=== PATIENT | male | born 1950 | race Caucasian/White ===

== ENCOUNTER 2017-05-30 11:08 | Day surgery (SDC) | payer MEDICARE ==
[2017-05-29 12:00] VITALS: BMI 31.1
[2017-05-30] MEDS ORDERED: Midazolam HCl 2 mg/2 ml Vial ONE ×2 (12:28→12:57)
== END 2017-05-30 13:50 | disposition home or self-care (01) ==
LOC: SDC/OP 11:08
PROVIDERS: ATTEND Specialist
DX: M47.817 Spondylosis without myelopathy or radiculopathy, lumbosacral region (principal); F41.8 Other specified anxiety disorders; M19.90 Unspecified osteoarthritis, unspecified site; Z87.891 Personal history of nicotine dependence; Z80.8 Family history of malignant neoplasm of other organs or systems; Z79.52 Long term (current) use of systemic steroids; Z79.891 Long term (current) use of opiate analgesic; Z79.899 Other long term (current) drug therapy
CPT/HCPCS: J2250

== ENCOUNTER 2017-06-06 14:12 | Inpatient (IN) | payer MEDICARE ==
--- NOTE | 2017-06-06 15:26 | ULT ---
ULTRASOUND WITH DOPPLER DUPLEX VENOUS LOWER EXTREMITY BILATERAL CPT: 39400 ICD-10-PCS: B54D HISTORY: Pain and edema. TECHNIQUE: Color flow Doppler, spectral waveform analysis of pulsed Doppler, and jimenez-scale imaging with anahi elvira and augmentation, were used to evaluate the bilateral common femoral, femoral, popliteal, cottage cheese maker ior tibial, and superficial femoral, veins; and the proximal portions of the profunda femoral and gre ater saphenous, veins. FINDINGS: Appropriate compressibility and flow within the imaged deep vein system of each lower extremity. Incidental note of prominent-sized right inguinal lymph node measuring 3.5 cm in diameter. IMPRESSION: 1. No evidence of deep vein thrombosis. 2. Prominent-sized, incidentally visualized right inguinal lymph node. Recommend clinical correlati on. 3. Soft tissue edema. POS: [facility]
[2017-06-06 15:39] LABS: #Eosinphils 0.2 thou/uL (0.0-0.7); #Lymphocytes 1.3 thou/uL (1.20-3.40); #Monocytes 0.6 thou/uL (0.11-0.59); #Neutrophils 4.6 thou/uL (1.40-6.50); %Basophils 0.4 % (0.0-1.0); %Eosinophils 2.9 % (0.0-10.0); %Lymphocytes 19.3 % (21.0-51.0); %Monocytes 8.5 % (0.0-10.0); %Neutrophils 68.9 % (42.0-75.0); Hemoglobin 13.1 g/dL (14.0-18.0); Mean Corpuscular Hemoglobin 32.8 pg (27.0-31.0); Mean Corpuscular Volume 93.8 fl (80.0-94.0); Mean Platelet Volume 6.8 fL (7.4-10.4); Platelet Count 258 thou/uL (130-400); RBC Distribution Width 12.3 % (11.5-14.5); White Blood Cell (WBC) Count 6.7 thou/uL (4.8-10.8)
[2017-06-06 16:04] LABS: Troponin I 0.013 ng/mL (< 0.028)
[2017-06-06 16:06] LABS: CKMB 8.1 ng/mL (0-6.6)
[2017-06-06] MEDS ORDERED: cefTRIAXone\\ROCEPHIN 2 GM in Sodium Chloride 0.9% 100 ML IVPB SCH (19:00)
[2017-06-06] MEDS ORDERED: Morphine 4 MG/ML VIAL ONE (20:55)
[2017-06-06 21:10] LABS: Bilirubin Negative (Negative); Blood, Urine Negative (Negative); Clarity CLEAR (Clear); Glucose, Urine (Dipstick) Negative (Negative); Leukocyte Negative (Negative); Nitrite Negative (Negative); Protein, Urine (Dipstick) Negative (Neg-Trace); Specific Gravity, Urine 1.019 (1.002-1.036); pH, Urine 6.5 (5.0-9.0)
[2017-06-06 22:14] LABS: Lactic Acid 1.7 mmol/L (0.5-2.2)
[2017-06-07] MEDS: Sodium Chloride 0.45% 1,000 ML IV SCH ×2 (04:03→12:47)
[2017-06-07 04:23] VITALS: BMI 42.5
[2017-06-07] MEDS ORDERED: Bisacodyl 5 MG TAB PO PRN (05:10)
[2017-06-07] MEDS ORDERED: Vancomycin HCl 1 GM in Premix Bag 1 BAG IVPB SCH (05:30)
[2017-06-07] MEDS: Piperacillin/Tazobactam 4.5 GM in Sodium Chloride 0.9% 100 ML IVPB SCH ×3 (05:36→23:49)
--- NOTE | 2017-06-07 05:52 | HP ---
PRIMARY CARE PHYSICIAN: Rusty Tanner D.O. CHIEF COMPLAINT: Bilateral leg swelling and redness. HISTORY OF PRESENT ILLNESS: Mr. Fox is a pleasant 66-year-old gentleman, who was seen at [facility] on 06/07/2017. He reports that approximately 1-1/2 years ago he was hospitalized at [facility] for bilateral leg cellul itis. He was doing well until about a week ago. At that time, he started having swelling of both le gs. He also reports that he had vesicles which ruptured over both shins. He also reports having a w ound over the left gonzalez. Over the last 3 days, he had erythema over both shins. Two days ago, he sa w his primary care physician and was started on amoxicillin and Bactrim. He saw his primary care kerri curiel yesterday for followup. He was sent to the emergency room for further management because of o utpatient antibiotic therapy failure. He denies any fever, chills, nausea, vomiting, diarrhea, or ab dominal pain. REVIEW OF SYSTEMS: The following complete review of systems was negative, unless otherwise mentioned in the HPI or below: Constitutional: Weight loss or gain, ability to conduct usual activities. Skin: Rash, itching. Eyes: Double vision, pain. ENT/Mouth: Nose bleeding, neck stiffness, pain, tenderness. Cardiovascular: Palpitations, dyspnea on exertion, orthopnea. Respiratory: Shortness of breath, wheezing, cough, hemoptysis, fever or night sweats. Gastrointestinal: Poor appetite, abdominal pain, heartburn, nausea, vomiting, constipation, or diarr hea. Genitourinary: Urgency, frequency, dysuria, nocturia. Musculoskeletal: Pain, swelling. Neurologic/Psychiatric: Anxiety, depression. Allergy/Immunologic: Skin rash, bleeding tendency. PAST MEDICAL HISTORY: Significant for left hip pain, hypertension, and cellulitis. PAST SURGICAL HISTORY: None. SOCIAL HISTORY: No history of tobacco use, alcohol use or recreational drug use. The patient ambula jaxson independently. FAMILY HISTORY: No family history of coronary artery disease or diabetes mellitus. CODE STATUS: I discussed his code status. He is FULL CODE. ALLERGIES: No known drug allergies. CURRENT MEDICATIONS: Include sulfamethoxazole 1 tablet 2 times a day, amoxicillin 875 mg 2 times a d ay, amitriptyline 10 mg daily, potassium 75 mg daily, zolpidem 10 mg daily, furosemide 40 mg 2 times a day, hydrochlorothiazide 25 mg daily, and morphine 15 mg 2 times a day. PHYSICAL EXAMINATION: GENERAL: On examination, Mr. Fox is awake and alert, not in acute distress. He is morbidly obese, with BMI of 42.5 kilogram per square meter. VITAL SIGNS: He is afebrile. Blood pressure is 104/68, pulse is 98. His breathing at rate of 19 an d saturating 94% on room air. EYES: No scleral icterus. No conjunctival pallor. ENT: Moist mucosal membranes, no oropharyngeal erythema or exudates. NECK: Supple, nontender, normal range of movement, trachea is midline. RESPIRATORY: Accessory muscles of breathing are not active. Chest wall movements are symmetric bila terally. LUNGS: Clear to auscultation without wheeze, rhonchi or crepitations. CARDIOVASCULAR: S1 and S2 are heard, regular. Peripheral pulses palpable. No carotid bruit, no per icardial rub. ABDOMEN: Distended, nontender, bowel sounds heard, no hepatomegaly, no splenomegaly. NEUROLOGIC: Cranial nerves II-XII are intact, deep tendon reflexes are 2+. MUSCULOSKELETAL: Power is 5/5 in all 4 extremities. Normal range of movement at all major extremity joints. SKIN: He has erythema over both shins, worse on the left, extending all the way from the foot to jus t below the knee on the left, and extending to mid gonzalez on the right. He also has a wound over the l eft gonzalez. He also has what appeared to be ruptured vesicles over the right gonzalez. LYMPHATIC: No cervical lymphadenopathy. PSYCHIATRIC: Normal mood, normal affect, patient is oriented to person, place, and time. X-RAY FINDINGS AND LABORATORY DATA: Mr. Fox's labs and investigations were reviewed. Bilateral lo wer extremity venous Dopplers did not reveal any evidence of deep vein thrombosis. He had prominent sized right inguinal lymph node. Laboratory investigations showed normal white count, normocytic ane marci with hemoglobin 13.1, normal platelet count, elevated D-dimer of 1.05, normal lactic acid, normal troponin I, elevated C-reactive protein of 8.42, elevated TSH of 9.3171, normal BNP and normal urina lysis. ASSESSMENT AND PLAN: Mr. Fox is a pleasant 66-year-old gentleman, who was seen at [facility] on 06/07/2017. His problem list includes: 1. Cellulitis. Mr. Fox has bilateral lower extremity cellulitis, worse on the left. He has faile d outpatient antibiotic therapy. He will be admitted to the hospital for intravenous antibiotics. I will start him on Zosyn and vancomycin. We will also get wound cultures from the open wound over th e left gonzalez. 2. Elevated TSH: Will check free T3 and free T4. 3. Hypertension: Continue home medications, monitor vital signs and titrate antihypertensives as ne eded. Many thanks for allowing me to participate in your patient's care. Please feel free to contact me wi th any questions or concerns. LEVEL OF RISK: Moderate. LEVEL OF COMPLEXITY: Moderate.
[2017-06-07] MEDS: Enoxaparin Sodium 40 MG/0.4 ML SYRINGE SC SCH (09:00)
[2017-06-07] MEDS: Sodium Chloride 0.9% 1,000 ML IV SCH ×2 (13:10→21:41)
[2017-06-07] MEDS ORDERED: MELATONIN 30 MG PO PRN (16:17)
--- NOTE | 2017-06-07 16:29 | PDOC.PN ---
- Subjective Encounter Start Date: 06/07/17 Encounter Start Time: 16:28 Mr. Fox was seen today in follow-up of cellulitis of both legs. He has noted a slight improvement overnight. His legs are still weeping however. - Objective Resuscitation Status: Resuscitation Status FULL:Full Resuscitation MAR Reviewed: Yes Vital Signs & Weight: Vital Signs (12 hours) Temp Pulse Resp BP Pulse Ox 06/07/17 12:36 98 F 90 20 107/69 93 L 06/07/17 11:56 98.1 F 83 14 06/07/17 09:31 98.1 F 83 14 93 L 06/07/17 09:08 98.1 F 83 14 114/73 93 L I&O: 06/06/17 06/07/17 06/08/17 06:59 06:59 06:59 Intake Total 1645 Balance 1645 Result Diagrams: 06/06/17 15:15 Phys Exam - Physical Examination HEENT: PERRLA Respiratory: no wheezing, no rales, no rhonchi, clear to auscultation bilateral Cardiovascular: RRR, no significant murmur Gastrointestinal: soft, non-tender, positive bowel sounds Musculoskeletal: edema present Bilateral pitting edema, and erythema, left leg is weeping clear fluid Dx/Plan (1) Cellulitis of both lower extremities Code(s): L03.115 - CELLULITIS OF RIGHT LOWER LIMB; L03.116 - CELLULITIS OF LEFT LOWER LIMB Status: Acute (2) Hypertension Code(s): I10 - ESSENTIAL (PRIMARY) HYPERTENSION Status: Acute (3) Obesity, morbid, BMI 40.0-49.9 Code(s): E66.01 - MORBID (SEVERE) OBESITY DUE TO EXCESS CALORIES Status: Acute (4) Venous stasis dermatitis of both lower extremities Code(s): I87.2 - VENOUS INSUFFICIENCY (CHRONIC) (PERIPHERAL) Status: Acute - Plan * Cellulitis- erythema, as regressed some- continue Zosyn and Vancomycin * HTN- blood pressure is elevated * Obesity- stable- patient is aware he needs to loose weight * Suspected Chronic venous stasis- he plans to see a " leg specialist" after discharge. * Will need to monitor renal function
[2017-06-07] MEDS: HYDROcodone/Acetaminophen 10/325 mg Tablet PO PRN (21:39)
[2017-06-07] MEDS: Zolpidem Tartrate 5 MG TAB PO SCH (21:40)
[2017-06-07] MEDS: Amitriptyline HCl 25 MG TAB PO SCH (21:40)
[2017-06-08 05:59] LABS: #Eosinphils 0.3 thou/uL (0.0-0.7); #Monocytes 0.5 thou/uL (0.11-0.59); #Neutrophils 3.2 thou/uL (1.40-6.50); %Basophils 0.8 % (0.0-1.0); %Eosinophils 6.3 % (0.0-10.0); %Lymphocytes 20.2 % (21.0-51.0); %Monocytes 9.2 % (0.0-10.0); %Neutrophils 63.5 % (42.0-75.0); Hemoglobin 11.9 g/dL (14.0-18.0); Mean Corpuscular Hemoglobin 32.4 pg (27.0-31.0); Mean Corpuscular Volume 95.3 fl (80.0-94.0); Mean Platelet Volume 6.6 fL (7.4-10.4); Platelet Count 249 thou/uL (130-400); RBC Distribution Width 12.4 % (11.5-14.5); Red Blood Cell (RBC) Count 3.66 mill/uL (4.70-6.10)
[2017-06-08 06:22] LABS: Anion Gap 11 mmol/L (10-20); BUN (Urea Nitrogen) 27 mg/dL (8.4-25.7); Calc. Creatinine Clearance 73 mL/min (70-130); Calcium 8.6 mg/dL (7.8-10.44); Carbon Dioxide 27 mmol/L (23-31); Chloride 103 mmol/L (98-107); Estimated GFR-MDRD 35; Glucose 114 mg/dL (80-115); Potassium 3.2 mmol/L (3.5-5.1); Sodium 138 mmol/L (136-145)
[2017-06-08] MEDS: Piperacillin/Tazobactam 4.5 GM in Sodium Chloride 0.9% 100 ML IVPB SCH ×3 (08:06→22:31)
[2017-06-08] MEDS: Enoxaparin Sodium 40 MG/0.4 ML SYRINGE SC SCH (09:08)
[2017-06-08] MEDS: Amitriptyline HCl 25 MG TAB PO SCH ×2 (09:08→22:32)
[2017-06-08] MEDS: Sodium Chloride 0.9% 1,000 ML IV SCH (09:21)
--- NOTE | 2017-06-08 11:54 | PDOC.PN ---
- Subjective Encounter Start Date: 06/08/17 Encounter Start Time: 11:52 Mr. Fox says he is feeling a little better today, slightly less soreness in the leg. - Objective Resuscitation Status: Resuscitation Status FULL:Full Resuscitation MAR Reviewed: Yes Vital Signs & Weight: Vital Signs (12 hours) Temp Pulse Resp BP Pulse Ox 06/08/17 08:00 97.4 F L 89 16 06/08/17 07:44 97.4 F L 89 16 111/74 95 06/08/17 04:00 98.3 F 90 18 139/80 98 06/08/17 03:04 94 L 06/08/17 00:50 97.7 F 86 17 120/73 94 L I&O: 06/07/17 06/08/17 06/09/17 06:59 06:59 06:59 Intake Total 4944 Output Total 2050 Balance 2894 Result Diagrams: 06/08/17 05:20 06/08/17 05:20 Phys Exam - Physical Examination HEENT: PERRLA Respiratory: no wheezing, no rales, no rhonchi, clear to auscultation bilateral Cardiovascular: RRR, no significant murmur, no rub Gastrointestinal: soft, non-tender, positive bowel sounds Musculoskeletal: edema present 3+ pitting edema, erythema in both legs, both are weeping fluid Dx/Plan (1) Cellulitis of both lower extremities Code(s): L03.115 - CELLULITIS OF RIGHT LOWER LIMB; L03.116 - CELLULITIS OF LEFT LOWER LIMB Status: Acute (2) Hypertension Code(s): I10 - ESSENTIAL (PRIMARY) HYPERTENSION Status: Acute (3) Obesity, morbid, BMI 40.0-49.9 Code(s): E66.01 - MORBID (SEVERE) OBESITY DUE TO EXCESS CALORIES Status: Acute (4) Venous stasis dermatitis of both lower extremities Code(s): I87.2 - VENOUS INSUFFICIENCY (CHRONIC) (PERIPHERAL) Status: Acute - Plan * Bilateral Cellutits- continue Iv Vancomycin and Zosyn * Will discontinue IV fluids * Acute on chronic kidney disease vs. Baseline Chronic kidney disease- will re- check his creatinine in the AM * HTN- Blood pressure is stable * Wound care consult for weeping leg wounds.
[2017-06-08] MEDS ORDERED: Potassium Chloride 20 MEQ TAB PO SCH (12:15)
[2017-06-08] MEDS ORDERED: Melatonin 3 MG TAB PO PRN ×2 (14:35→14:36)
[2017-06-08 19:46] LABS: Vancomycin, Trough 31.7 ug/mL
[2017-06-08] MEDS: HYDROcodone/Acetaminophen 10/325 mg Tablet PO PRN (22:33)
[2017-06-08] MEDS: Zolpidem Tartrate 5 MG TAB PO SCH (23:41)
[2017-06-09] MEDS: HYDROcodone/Acetaminophen 10/325 mg Tablet PO PRN (05:58)
[2017-06-09] MEDS: Piperacillin/Tazobactam 4.5 GM in Sodium Chloride 0.9% 100 ML IVPB SCH ×3 (05:59→21:33)
[2017-06-09 06:03] LABS: Anion Gap 14 mmol/L (10-20); BUN (Urea Nitrogen) 21 mg/dL (8.4-25.7); Calc. Creatinine Clearance 75 mL/min (70-130); Carbon Dioxide 22 mmol/L (23-31); Chloride 108 mmol/L (98-107); Estimated GFR-MDRD 36; Glucose 98 mg/dL (80-115); Potassium 3.7 mmol/L (3.5-5.1); Sodium 140 mmol/L (136-145)
[2017-06-09] MEDS ORDERED: Vancomycin HCl 1.5 GM in Sodium Chloride 0.9% 250 ML 300 ML IVPB SCH (09:00)
[2017-06-09 09:06] LABS: Vancomycin, Random 20.6 ug/mL (See Comment)
[2017-06-09] MEDS: Enoxaparin Sodium 40 MG/0.4 ML SYRINGE SC SCH (09:22)
[2017-06-09] MEDS: Amitriptyline HCl 25 MG TAB PO SCH ×2 (09:22→21:32)
--- NOTE | 2017-06-09 16:09 | PDOC.PN ---
- Subjective Encounter Start Date: 06/09/17 Encounter Start Time: 16:07 Mr. Fox was seen today in follow-up. He says he feels his leg has improved. No new complaints. - Objective Resuscitation Status: Resuscitation Status FULL:Full Resuscitation MAR Reviewed: Yes Vital Signs & Weight: Vital Signs (12 hours) Temp Pulse Resp BP Pulse Ox 06/09/17 08:00 97.8 F 81 14 111/66 98 06/09/17 04:32 97.7 F 78 18 118/68 97 Weight Admit Weight 305 lb Weight 305 lb I&O: 06/08/17 06/09/17 06/10/17 06:59 06:59 06:59 Intake Total 4944 1500 700 Output Total 2049 Balance 2894 1500 700 Result Diagrams: 06/08/17 05:20 06/09/17 05:07 Phys Exam - Physical Examination HEENT: PERRLA Respiratory: no wheezing, no rales, no rhonchi, clear to auscultation bilateral Cardiovascular: RRR, no significant murmur Gastrointestinal: soft, positive bowel sounds Musculoskeletal: edema present 2+ Pittine edema bilaterally mild erythema Dx/Plan (1) Cellulitis of both lower extremities Code(s): L03.115 - CELLULITIS OF RIGHT LOWER LIMB; L03.116 - CELLULITIS OF LEFT LOWER LIMB Status: Acute (2) Hypertension Code(s): I10 - ESSENTIAL (PRIMARY) HYPERTENSION Status: Acute (3) Obesity, morbid, BMI 40.0-49.9 Code(s): E66.01 - MORBID (SEVERE) OBESITY DUE TO EXCESS CALORIES Status: Acute (4) Venous stasis dermatitis of both lower extremities Code(s): I87.2 - VENOUS INSUFFICIENCY (CHRONIC) (PERIPHERAL) Status: Acute - Plan * Cellulitis- slowly improving * Stable for discharge home..
[2017-06-09] MEDS: Zolpidem Tartrate 5 MG TAB PO SCH (21:32)
[2017-06-09 23:45] VITALS: BP 114/74; TEMP 97.8
--- NOTE | 2017-06-10 02:50 | DIS ---
PRIMARY CARE PHYSICIAN: Rusty Tanner D.O. DATE OF ADMISSION: 06/06/2017 DATE OF DISCHARGE: 06/09/2017 DISCHARGE DISPOSITION: Home. PRIMARY DISCHARGE DIAGNOSES: 1. Cellulitis, bilateral lower extremities. 2. Chronic venous stasis. 3. Hypertension. 4. Chronic kidney disease, stage 3. DISCHARGE MEDICATIONS: Include ciprofloxacin 500 mg twice a day for 10 days, Flagyl 500 mg 3 times a day for 10 days, amitriptyline 50 mg twice a day, Celebrex 200 mg twice daily, Lasix 40 mg daily, hy drochlorothiazide 25 mg twice a day, melatonin 20 mg at bedtime, morphine sulfate 30 mg p.r.n., potas sium chloride 20 mEq daily, Ambien 10 mg at bedtime, Kenalog cream 0.5% daily. PROCEDURES DONE DURING ADMISSION: The patient had a lower extremity venous Doppler showing no eviden ce of deep vein thrombosis and this was bilateral. CODE STATUS: FULL CODE. ALLERGIES: No known drug allergies. HOSPITAL COURSE: Mr. Fox is a pleasant 66-year-old gentleman who presented to the emergency room w ith swelling in both legs as well as redness. He had seen his primary care physician prior to admiss ion and he had been prescribed amoxicillin and Bactrim. However, his legs continuously got more swol tony and more red as a result, he came to the emergency room for evaluation. He was admitted for cell ulitis of both legs and started on IV fluids. He had some drainage from the wound, says they were we eping clearish fluid and these wounds grew 3 organisms including Enterobacter cloacae, Strep agalacti a, and a Gram-negative doyle. The Gram-negative doyle was in too few quantities to identify and based on the culture results, he was placed on Cipro and Flagyl orally and he is being discharged home. He w as also seen by Wound Care, who recommended the wraps and cream for his legs. He is planning to see a leg specialist it sounds like a vein specialist, which he had already planned prior to admission an d he was counseled on the proper care for chronic venous stasis including elevation, sodium restricti on, and compression. He will be discharged home and to follow up with Dr. Tanner in 1 week.
[2017-06-10] MEDS: Piperacillin/Tazobactam 4.5 GM in Sodium Chloride 0.9% 100 ML IVPB SCH (06:16)
== END 2017-06-10 08:46 | disposition home or self-care (01) | DRG 603 ==
LOC: ERS 14:12 → ERHOLD 20:49 → SURG A 06-07 01:57
PROVIDERS: ADMIT Family Medicine; ATTEND Family Medicine
DX: L03.116 Cellulitis of left lower limb (principal); E66.01 Morbid (severe) obesity due to excess calories; N18.3 Chronic kidney disease, stage 3 (moderate); Z68.41 Body mass index [BMI] 40.0-44.9, adult; S81.802A Unspecified open wound, left lower leg, initial encounter; L03.115 Cellulitis of right lower limb; I87.2 Venous insufficiency (chronic) (peripheral); I12.9 Hypertensive chronic kidney disease with stage 1 through stage 4 chronic kidney disease, or unspecified chronic kidney disease
CPT/HCPCS: 36415; 80048; 80202; 81003; 82553; 83605; 83880; 84439; 84443; 84481; 84484; 85025; 85379; 86140; 87070; 87077; 87186; 87205; 93970; 96361; 96365; 96366; 96367; 96375; 99214; G0463; J0696; J1650; J2270; J2543; J3370; J7050

== ENCOUNTER 2017-09-30 12:10 | Day surgery (SDC) | payer MEDICARE ==
[2017-09-29 13:08] VITALS: BMI 39.4
--- NOTE | 2017-09-30 15:58 | MRI ---
MRI LUMBAR SPINE WITHOUT CONTRAST: Date: 09/30/17 INDICATION: Low back pain, radiculopathy. COMPARISON: None. TECHNIQUE: Multiplanar, multisequence MR images were obtained of the lumbar spine without IV contrast. No radiog raphic comparisons are available. Five lumbar-type vertebral bodies are seen for the purposes of this exam due to the lack of radiographic comparisons. FINDINGS: The conus is seen to terminate at the expected L1-2 level. The visualized retroperitoneum and paravertebral soft tissues appear within normal limits. There is slight prominence of the epidural fat suspicious for changes of mild epidural lipomatosis. At the L5-S1 level, there is a broad based disc osteophyte complex that is asymmetric to the left wit h associated facet joint degenerative change inducing severe left neural foraminal narrowing. At L4-5, there is a broad based disc osteophyte complex with epidural lipomatosis and facet joint deg enerative change inducing severe central canal narrowing with moderate to severe bilateral neural for aminal narrowing. At L3-4, there is a broad based disc osteophyte complex with facet joint degenerative change and prom inence of the epidural fat pad inducing severe central canal narrowing with moderate to severe bilate ral neural foraminal narrowing, right greater than left. At the L2-3 level, there is a broad based bulge with facet joint degenerative change inducing mild bi lateral neural foraminal narrowing. At L1-2, there is mild broad based bulge without appreciable central canal or neural foraminal narrow ing. At T12-L1, there is no appreciable central canal or neural foraminal narrowing. IMPRESSION: Prominent central canal and neural foraminal narrowing seen involving the lower lumbar spine from L3- 4 through L5-S1 as detailed above. POS: [facility]
== END 2017-09-30 15:20 | disposition home or self-care (01) ==
LOC: SDC/OP 12:10
PROVIDERS: ATTEND Specialist
DX: M51.16 Intervertebral disc disorders with radiculopathy, lumbar region (principal); I10 Essential (primary) hypertension
CPT/HCPCS: 72148

== ENCOUNTER 2017-10-08 22:17 | Inpatient (IN) | payer MEDICARE ==
[2017-10-08 23:07] LABS: #Eosinphils 0.1 thou/uL (0.0-0.7); #Lymphocytes 1.1 thou/uL (1.20-3.40); #Monocytes 0.4 thou/uL (0.11-0.59); #Neutrophils 5.1 thou/uL (1.40-6.50); %Basophils 0.6 % (0.0-1.0); %Eosinophils 0.9 % (0.0-10.0); %Lymphocytes 16.6 % (21.0-51.0); %Neutrophils 75.8 % (42.0-75.0); Hemoglobin 14.1 g/dL (14.0-18.0); Mean Corpuscular HGB CONC 35.1 g/dL (32.0-36.0); Mean Corpuscular Hemoglobin 32.8 pg (27.0-31.0); Mean Corpuscular Volume 93.4 fl (80.0-94.0); Mean Platelet Volume 7.6 fL (7.4-10.4); Platelet Count 211 thou/uL (130-400); RBC Distribution Width 11.7 % (11.5-14.5); White Blood Cell (WBC) Count 6.7 thou/uL (4.8-10.8)
[2017-10-08 23:15] LABS: Bilirubin Negative (Negative); Blood, Urine Negative (Negative); Clarity CLEAR (Clear); Glucose, Urine (Dipstick) 500 mg/dL (Negative); Leukocyte Negative (Negative); Nitrite Negative (Negative); Protein, Urine (Dipstick) Negative (Neg-Trace); Specific Gravity, Urine 1.011 (1.002-1.036); Urobilinogen 0.2 mg/dL (0.2-1.0); pH, Urine 7.5 (5.0-9.0)
[2017-10-08 23:23] LABS: Amphetamine Not Detected (NotDetected); Barbiturates Screen Not Detected (NotDetected); Benzodiazepine Screen Not Detected (NotDetected); Cocaine Metabolite Screen Not Detected (NotDetected); Medtox Control Line Valid? VALID (VALID); Medtox Reader # READER 1; Methadone Not Detected (NotDetected); Methamphetamine Not Detected (NotDetected); Opiate Screen Detected (NotDetected); Oxycodone Screen Not Detected (NotDetected); Phencyclidine (PCP) Not Detected (NotDetected); THC/Cannabinoid Screen Not Detected (NotDetected); Tricyclic Screen Not Detected (NotDetected)
[2017-10-08 23:26] LABS: ALT (SGPT) 38 U/L (8-55); AST (SGOT) 23 U/L (5-34); Albumin 4.1 g/dL (3.4-4.8); Alkaline Phosphatase 125 U/L (40-150); Anion Gap 17 mmol/L (10-20); BUN (Urea Nitrogen) 31 mg/dL (8.4-25.7); Bilirubin, Total 0.6 mg/dL (0.2-1.2); CK (CPK) 223 U/L (30-200); Calc. Creatinine Clearance 0 mL/min (70-130); Calcium 9.1 mg/dL (7.8-10.44); Carbon Dioxide 30 mmol/L (23-31); Chloride 90 mmol/L (98-107); Estimated GFR-MDRD 30; Globulin 3.5 g/dL (2.4-3.5); Magnesium 2.6 mg/dL (1.6-2.6); Protein, Total 7.6 g/dL (5.8-8.1); Sodium 134 mmol/L (136-145)
[2017-10-08 23:30] LABS: CKMB 5.2 ng/mL (0-6.6); Troponin I Less than 0.010 ng/mL (< 0.028)
--- NOTE | 2017-10-08 23:35 | RAD ---
PORTABLE SUPINE CHEST: 10/08/17 HISTORY: Elevated glucose. Altered mental status. Heart size and mediastinum are within normal limits. The lungs appear clear of infiltrates. IMPRESSION: No active intrathoracic disease. POS: [facility]
[2017-10-08 23:46] LABS: Glucose 684 mg/dL (80-115); Potassium 2.8 mmol/L (3.5-5.1)
--- NOTE | 2017-10-08 23:52 | CT ---
CT OF BRAIN PERFORMED WITHOUT CONTRAST ENHANCEMENT: 10/08/17 HISTORY: Fall, altered mental status. Patient found on floor. Ventricular and cisternal systems show some mild generalized atrophy. There is no signs of intracereb ral hemorrhage or extra-axial fluid collections. Mastoid air cells and visualized sinuses are clear. IMPRESSION: No acute intracranial abnormalities. POS: [facility]
--- NOTE | 2017-10-08 23:55 | CT ---
CT OF CERVICAL SPINE PERFORMED WITHOUT CONTRAST ENHANCEMENT: 10/08/17 HISTORY: Fall with neck pain. Vertebral bodies are normal in height. There are marked degenerative changes of the spine with disc n arrowing from C3-4 to C7-T1. Prominent anterior osteophytic change and changes of DISH are noted. The re are also degenerative facet changes, the facets do appear to be in normal alignment. The canal chris ws moderate stenosis and some right sided foraminal narrowing at C4-5. Moderate canal stenosis and bi lateral foraminal narrowing worse on the left at C5-6 and asymmetric right paracentral osteophytic ch anges at C6-7 also with moderate stenosis and right foraminal narrowing. There is no CT evidence for fracture. IMPRESSION: No CT evidence of fracture. Marked arthritic changes of the spine. POS: [facility]
--- NOTE | 2017-10-08 23:59 | CT ---
CT OF LUMBAR SPINE PERFORMED WITHOUT CONTRAST ENHANCEMENT: 10/08/17 HISTORY: Fall with back pain. Vertebral bodies maintain normal height. Vacuum disc phenomenon is seen at L5-S1 without significant disc narrowing. There are marked degenerative facet changes of the lower cervical spine. No compressi on fractures are seen. T12-L1: No canal or foraminal stenosis. L1-2: Borderline canal narrowing with facet hypertrophic change. L2-3: Canal shows mild to moderate degree of stenosis with disc bulging, facet and ligamentous hypert rophic change. L3-4: Moderately severe canal stenosis also present at this level, again with degenerative facet and ligamentous hypertrophic change. L4-5: Severe canal stenosis at this level with disc bulge, facet and ligamentous hypertrophic change. L5-S1: No significant canal stenosis. Suggestion of some left sided foraminal narrowing related to fa cet changes. IMPRESSION: Multilevel canal stenosis. No CT evidence for fracture. POS: [facility]
[2017-10-09] MEDS ORDERED: Insulin Regular 300 UNITS/3 ML VIAL ONE (00:05)
[2017-10-09] MEDS ORDERED: Insulin Regular 100 units/100 ml in NS IVPB SCH (00:15)
[2017-10-09] MEDS ORDERED: Potassium Chloride 20 MEQ in Premix Bag 1 BAG IVPB SCH (01:00)
[2017-10-09] MEDS ORDERED: NS 0.9% w/ 20 MEQ KCL 1,000 ML IV SCH (01:30)
[2017-10-09 01:49] LABS: Acetaminophen Less than 6.0 mcg/mL (10.0-30.0); Alcohol Less than 10 mg/dL (Less than 10); Salicylate Less than 8.0 mg/dL (15.0-30.0)
[2017-10-09] MEDS ORDERED: Ondansetron ODT 4 MG TAB SL PRN (02:38)
[2017-10-09] MEDS ORDERED: Ondansetron HCl/PF 4 MG/2 ML Vial IVP PRN ×2 (02:38→04:41)
[2017-10-09] MEDS ORDERED: Acetaminophen 325 MG TAB PO PRN (02:38)
[2017-10-09 02:42] LABS: Troponin I 0.015 ng/mL (< 0.028)
[2017-10-09 02:58] VITALS: BMI 35.2
[2017-10-09] MEDS ORDERED: Insulin Regular 300 UNITS/3 ML VIAL SC PRN (03:05)
[2017-10-09] MEDS ORDERED: Dextrose 5% in Water 1,000 ML IV PRN (03:05)
[2017-10-09] MEDS ORDERED: Dextrose 50% Abboject 50 ML SYRINGE SLOW IVP PRN (03:05)
[2017-10-09 04:01] LABS: Troponin I 0.014 ng/mL (< 0.028)
[2017-10-09] MEDS ORDERED: Sodium Chloride 0.9% 1,000 ML IV SCH (04:15)
[2017-10-09] MEDS ORDERED: NS 0.9% w/ 20 MEQ KCL 1,000 ML IV PRN ×2 (04:40)
[2017-10-09] MEDS ORDERED: D5 1/2 NS w/20 mEq KCL 1,000 ML IV PRN (04:40)
[2017-10-09] MEDS ORDERED: CCU Electrolyte Replacement 1 EACH IVPB ONE (04:40)
[2017-10-09] MEDS ORDERED: Sodium Chloride 0.9% 1,000 ML IV PRN ×4 (04:40)
[2017-10-09] MEDS ORDERED: Dextrose 5 %-0.45 % NaCl 1,000 ML IV PRN (04:40)
[2017-10-09] MEDS ORDERED: Bisacodyl 10 MG SUPP PR PRN (04:41)
[2017-10-09] MEDS ORDERED: Senokot 8.6 MG TAB PO PRN (04:41)
[2017-10-09] MEDS ORDERED: Ondansetron ODT 4 MG TAB PO PRN (04:41)
[2017-10-09] MEDS ORDERED: Acetaminophen 650 MG Suppository PR PRN (04:41)
[2017-10-09] MEDS ORDERED: hydrALAZINE 20 MG/ML VIAL SLOW IVP PRN (04:43)
[2017-10-09] MEDS ORDERED: Aspirin 300 MG Suppository PR SCH (04:45)
[2017-10-09] MEDS ORDERED: Potassium Phosphate 12 MMOL in Sodium Chloride 0.9% 250 ML 250 ML IV PRN ×2 (05:04→16:43)
[2017-10-09] MEDS ORDERED: Magnesium 2 GM/NS 0.9% 100 ML 2 GM in Premix Bag 1 BAG IVPB PRN ×2 (05:04→16:43)
[2017-10-09] MEDS ORDERED: Potassium Chloride 40 MEQ in Sodium Chloride 0.9% 250 ML 250 ML IVPB PRN ×3 (05:04→16:43)
[2017-10-09] MEDS ORDERED: Magnesium Oxide 400 MG TAB PO PRN ×4 (05:04→16:43)
[2017-10-09] MEDS ORDERED: Potassium Phosphate 9 MMOL in Sodium Chloride 0.9% 100 ML IVPB PRN ×2 (05:04→16:43)
[2017-10-09] MEDS ORDERED: Potassium Phosphate 15 MMOL in Sodium Chloride 0.9% 250 ML 250 ML IV PRN ×2 (05:04→16:43)
[2017-10-09] MEDS ORDERED: Potassium Chloride 40 MEQ in Premix Bag 1 BAG IVPB PRN ×2 (05:04→16:43)
[2017-10-09] MEDS ORDERED: Potassium Chloride 20 MEQ TAB PO PRN ×2 (05:04→16:43)
[2017-10-09] MEDS ORDERED: CCU ELECTROLYTE REPLACEMENT PROTOCOL FS PRN ×2 (05:04→16:43)
--- NOTE | 2017-10-09 05:29 | HP ---
DATE OF ADMISSION: 10/09/2017 PRIMARY CARE PHYSICIAN: Dr. Rusty Tanner. CHIEF COMPLAINT: Altered mentation. HISTORY OF PRESENT ILLNESS: Patient is a 66-year-old male who was diagnosed with diabetes mellitus t ype 2 two days ago, who was brought in with altered mentation by EMS. History obtained from the ER c haley as well as records from Dr. Rusty Tanner's office. No family at the bedside. Three days ago , the patient had a routine physical by Dr. Tanner. His labs were consistent with new onset diabete s mellitus type 2 with a hemoglobin A1c of 48.0 with blood glucose of 384. He was started on glimepi ride. Two days ago, patient was seen at the pain clinic and underwent lumbar injection with a total of 40 mg Depo-Medrol. The patient was found to have altered mentation. He fell asleep while on the phone earlier. Family was unable to get him on the phone. He was then found on the floor naked, covered in urine. He was nonresponsive to their questions. EMS was called. In the emergency room, initial vital signs showed temperature 96.6, respirations 13, pulse rate of 66 with blood pressure 143/82 with O2 saturation 100% on room air. PAST MEDICAL HISTORY: 1. Diabetes mellitus type 2 diagnosed 2 days ago on glimepiride. 2. Degenerative joint disease. 3. Anxiety, depression. 4. Degenerative joint disease followed at the Pain [facility]. PAST SURGICAL HISTORY: Back injections. ALLERGIES: No known drug allergies. CURRENT HOME MEDICATIONS: Gabapentin 300 mg three times daily, Lasix 40 mg every 8 hourly with potas sium, melatonin 10 mg at bedtime as needed, Pepcid 20 mg twice a day, hydrochlorothiazide 25 mg daily , Ambien as needed, amitriptyline 50 mg at bedtime, Celebrex 200 mg twice a day, morphine sulfate 30 mg twice a day. The above list was obtained from Dr. Tanner's office record. SOCIAL HISTORY: Patient currently lives at home. He is a former smoker. He drinks alcohol socially . No drug use reported. He is . He makes his own decisions with the help of his family. FAMILY HISTORY: Father with cancer. REVIEW OF SYSTEMS: Cannot be obtained from the patient due to current cognitive status. PHYSICAL EXAMINATION: VITAL SIGNS: As discussed above. GENERAL: A 66-year-old male with altered mentation. He is responsive only to painful stimuli. HEENT: Head, atraumatic and normocephalic. Sclerae are anicteric. Pupils were reacting to light bi laterally. NECK: Supple, no neck stiffness, no JVD. LUNGS: Showed decreased air entry at bilateral bases. No wheezing, rales or rhonchi. HEART: S1, S2 present. Regular rate and rhythm. No rubs, gallops or murmurs appreciated. ABDOMEN: Soft. Bowel sounds present. No rebound or guarding. There is a hernia over the right upp er abdomen. EXTREMITIES: A 2+ edema in bilateral lower extremities. SKIN: Warm and dry. Multiple superficial abrasions noted. NEUROLOGIC: His NIH score was 9. Detail neurologic and psychiatric examination could not be done du e to current cognitive status. LYMPH NODES: No palpable lymph nodes in the neck. PERIPHERAL VASCULAR: Radial pulses palpable bilaterally. MUSCULOSKELETAL: No joint swelling or tenderness. LABORATORY FINDINGS: Ketone 0.09. Urinalysis was negative. Lactic acid was 2.7. CBC showed WBC 6. 7 with hemoglobin 14.1, hematocrit 40.1, platelet count of 211. Glucose of 684 with potassium 2.8, B UN 31, creatinine 2.17. CRP was 1.58. Urine drug screen was positive for opiates. Lumbar spine CT showed multilevel canal stenosis. Chest x-ray by my review was negative for infiltrate. EKG by my review showed sinus rhythm with firs t-degree AV block. IMPRESSION: 1. Toxic metabolic encephalopathy, multifactorial. 2. Hyperosmolar hyperglycemic state. The patient has questionable facial droop. His NIH score is 9 . Probably precipitated by suspected acute cerebrovascular accident. The patient will be started on insulin drip with hyperosmolar hyperglycemic state protocol. We will repeat labs every 4 hours. We will also start him on aspirin for suspected acute cerebrovascular accident. We will consult Neurol ogy. We will get an MRI of the brain once his mentation improves. 3. Hypokalemia. We will replace potassium. 4. Chronic kidney disease stage 3. We will avoid nephrotoxic agents. 5. Chronic pain syndrome on chronic narcotics. We will get ABGs to rule out respiratory depression/ CO2 narcosis. 6. Hyponatremia secondary to hyperglycemia. 7. Lactic acidosis. 8. Anxiety and depression. 9. Chronic bilateral lower extremity swelling due to venous stasis. 10. Dehydration. Plan of care will be discussed with the family when they arrive.
[2017-10-09] MEDS: cefTRIAXone\\ROCEPHIN 1 GM in Syringe 10 ML IVPB SCH (05:41)
[2017-10-09 06:23] LABS: Anion Gap 14 mmol/L (10-20); BUN (Urea Nitrogen) 28 mg/dL (8.4-25.7); Calc. Creatinine Clearance 67 mL/min (70-130); Carbon Dioxide 28 mmol/L (23-31); Chloride 98 mmol/L (98-107); Estimated GFR-MDRD 40; Glucose 424 mg/dL (80-115); Magnesium 2.1 mg/dL (1.6-2.6); Phosphorus 3.1 mg/dL (2.3-4.7); Sodium 137 mmol/L (136-145)
[2017-10-09 06:27] LABS: Potassium 2.8 mmol/L (3.5-5.1)
[2017-10-09] MEDS ORDERED: DC Electrolyte Protocol FS ONE (07:00)
--- NOTE | 2017-10-09 07:27 | RAD ---
RIGHT SHOULDER 3 VIEWS: Date: 10/08/17 HISTORY: Pain and injury. COMPARISON: None. FINDINGS: Glenohumeral joint space appears to be preserved. Sclerosis of the greater tuberosity may be due to d egenerative change. Degenerative change of the acromioclavicular joint space is noted. No fracture or dislocation. IMPRESSION: No fracture or dislocation. Chronic changes as above. POS: [facility]
--- NOTE | 2017-10-09 08:58 | PDOC.PN ---
- Subjective Encounter Start Date: 10/09/17 Encounter Start Time: 08:56 Subjective: awake, confused - Objective Resuscitation Status: Resuscitation Status FULL:Full Resuscitation MAR Reviewed: Yes Vital Signs & Weight: Vital Signs (12 hours) Temp Pulse Resp Pulse Ox 10/09/17 04:00 98.0 F 10/09/17 03:05 97.6 F 81 28 H 99 10/09/17 02:30 97.6 F Most Recent Monitor Data Heart Rate from ECG 76 NIBP 121/69 NIBP BP-Mean 86 Respiration from ECG 15 SpO2 100 I&O: 10/08/17 10/09/17 10/10/17 06:59 06:59 06:59 Intake Total 409 Output Total 2330 Balance -1921 Result Diagrams: 10/08/17 22:30 10/09/17 05:23 Additional Labs: Accuchecks 10/09/17 10/09/17 10/09/17 07:33 06:41 05:30 POC Glucose 315 H 349 H 432 H 10/09/17 10/09/17 10/09/17 04:10 02:52 02:15 POC Glucose 428 H 461 H 506 H 10/09/17 01:18 POC Glucose 471 H Phys Exam - Physical Examination Neck: no JVD Respiratory: clear to auscultation bilateral Cardiovascular: RRR, no significant murmur Gastrointestinal: soft, positive bowel sounds Musculoskeletal: edema present marked increased girth of R calf , bilat LE erythema Dx/Plan (1) Encephalopathy Code(s): G93.40 - ENCEPHALOPATHY, UNSPECIFIED Status: Acute (2) Hyperosmolar (nonketotic) coma Code(s): E11.01 - TYPE 2 DIABETES MELLITUS WITH HYPEROSMOLARITY WITH COMA Status: Acute (3) DM (diabetes mellitus), type 2, uncontrolled Code(s): E11.65 - TYPE 2 DIABETES MELLITUS WITH HYPERGLYCEMIA Status: Acute Qualifiers: Diabetes mellitus manager terminal insulin use: without manager terminal use Diabetes mellitus complication status: with other specified complication Qualified Code (s): E11.69 - Type 2 diabetes mellitus with other specified complication; E11.65 - Type 2 diabetes mellitus with hyperglycemia; E11.65 - Type 2 diabetes mellitus with hyperglycemia; E11.65 - Type 2 diabetes mellitus with hyperglycemia; E11.65 - Type 2 diabetes mellitus with hyperglycemia (4) Hypertension Code(s): I10 - ESSENTIAL (PRIMARY) HYPERTENSION Status: Chronic Qualifiers: Hypertension type: essential hypertension Qualified Code(s): I10 - Essential (primary) hypertension - Plan frequent accu with iv insulin infusion -: stat venous doppler * .
[2017-10-09] MEDS ORDERED: Famotidine 40 MG/4 ML VIAL SLOW IVP SCH (09:00)
[2017-10-09] MEDS: Heparin 5,000 UNITS/ML VIAL SC SCH ×2 (09:37→20:29)
[2017-10-09] MEDS ORDERED: HumaLOG 300 UNITS/3 ML VIAL SC PRN (10:16)
[2017-10-09] MEDS ORDERED: Insulin Glargine 10 UNITS in Pre-Filled Syringe 1 EACH SC SCH (10:30)
[2017-10-09] MEDS ORDERED: Potassium Chloride 20 MEQ TAB PO SCH (10:30)
--- NOTE | 2017-10-09 10:36 | CON ---
DATE OF CONSULTATION: 10/09/2017 SERVICE: Pulmonary Medicine. REASON FOR CONSULTATION: ICU patient. HISTORY OF PRESENT ILLNESS: The patient is a 66-year-old white male with past medical history significant for type 2 diabetes mellitus. He was given a recent round of steroids. His blood sugars were uncontrolled. Ultimately, he developed encephalopathy and EMS Services brought him to the emergency department. When arrived here, he was fairly obtunded. Overnight, he got put on an insulin drip. He was given significant amount of IV fluids. After a short period of time, he is making a little bit more sense, although he is still difficult to understand and has altered sensorium. He is clearly moving in the right direction and is moving all 4 extremities without difficulty. He really cannot relate any circumstances of his presentation. PAST MEDICAL HISTORY: 1. Type 2 diabetes mellitus. 2. Osteoarthritis. 3. Anxiety disorder. 4. Major depressive disorder. PAST SURGICAL HISTORY: Back injections. ALLERGIES: No known drug allergies. MEDICATIONS: List of his inpatient medications were reviewed. Multiple updates were made. SOCIAL HISTORY: He has [id number] history of smoking, but quit remotely. He currently lives at home. He drinks alcohol rarely. There is no reported drug use. REVIEW OF SYSTEMS: This cannot be obtained because of the patient's altered sensorium . PHYSICAL EXAMINATION: VITAL SIGNS: Afebrile, pulse 76, blood pressure 121/69, respirations 15, saturation 100% on 1 liter nasal cannula. GENERAL: The patient is awake and alert. He is in no apparent distress. LUNGS: Decent air entry. Some rhonchorous breath sounds are present, but they clear with cough. Dependent crackles are evident. No wheezing or prolonged expiratory phase. HEART: Normal rate and regular. ABDOMEN: Soft, nontender, and nondistended. Bowel sounds are positive. MUSCULOSKELETAL: No cyanosis or clubbing. There is trace 1+ pitting in the bilateral lower extremities with bilateral erythema of the gonzalez. The right leg is slightly larger than the left leg. LABORATORY DATA: WBC 6.7, hemoglobin 14.1, platelets 211,000. Potassium 2.8. Creatinine 1.72 and comfortably down trending. BUN 28. Magnesium and phosphorus fall within the normal limits. Lactate is 3.0. Bicarbonate 28, anion gap has improved to 14. Troponin negative x2. Blood sugars were in the 500s, but however dropped back down into normal range. CRP 1.58, in the intermediate range. BNP 168. Liver function studies are completely unremarkable. CK is minimally elevated. Urinalysis is positive for glycosuria , but otherwise unremarkable. Urine drug screen is positive for opiates. Beta hydroxybutyric acid is negative. Alcohol, acetaminophen, and salicylates are negative. IMAGIN. CT of the brain demonstrates no acute intracranial abnormality. 2. CT of the C-spine demonstrates no acute osseous abnormality of the neck. 3. CT of the lumbar spine demonstrates multilevel canal stenosis with no evidence of fracture or subluxation. 4. Shoulder x-ray demonstrates no acute osseous deformity or dislocation. 5. Chest x-ray demonstrates no acute cardiopulmonary abnormality. The left costophrenic angle; however is excluded from film. The left hemidiaphragm is slightly elevated. The lung volumes are small accentuating interstitial markings. ASSESSMENT: 1. Acute hypoxic respiratory failure. 2. Metabolic encephalopathy. 3. Type 2 diabetes mellitus with hyperglycemia. 4. Acute kidney injury. 5. Opiate use. PLAN: We will convert the patient off of his insulin over to subcu medication. I will back off on his IV fluid rate. He will remain in the ICU until he can comfortably get out of bed into a chair a couple times on a daily basis. If repeat laboratories this afternoon are unremarkable and/or continue to improve, we can consider transitioning him out of the ICU. Pulmonary or Critical Care will continue to follow in this location, however. 70 minutes have been devoted to this patient in various activities. I personally reviewed all imaging studies and laboratory data noted within this document. For fifty percent of this time, I was interacting with the patient at the bedside or coordinating care with the care team. For the remainder of the time I was immediately available to the patient in the hospital unit. SONIDO
[2017-10-09 10:55] LABS: Lactic Acid 2.4 mmol/L (0.5-2.2)
[2017-10-09 10:55] LABS: Actual Bicarbonate (HCO3a) 30.3 mEq/L (22-26); Base Excess (BEa) 5.5 mEq/L (0 (+/-) 2.5); CO2 Tension 45.3 mmHg (35.0-45.0); Hematocrit-ABG 37.2 % (42.0-52.0); Hemoglobin (Hb) 12.9 g/dL (14.0-18.0); O2 Tension (PaO2) 91.4 mmHg (80.0-100.0); pH, Arterial 7.44 (7.35-7.45)
[2017-10-09 10:56] LABS: ALV-art Gradient 51.615 (0-20); Calcium, Ionized 1.1 mmol/L (1.12-1.30); Puncture Site L.R.
[2017-10-09 10:57] LABS: Anion Gap 14 mmol/L (10-20); BUN (Urea Nitrogen) 25 mg/dL (8.4-25.7); Calc. Creatinine Clearance 79 mL/min (70-130); Calcium 8.3 mg/dL (7.8-10.44); Carbon Dioxide 28 mmol/L (23-31); Chloride 102 mmol/L (98-107); Estimated GFR-MDRD 48; Glucose 191 mg/dL (80-115); Sodium 141 mmol/L (136-145)
[2017-10-09] MEDS: Sodium Chloride 0.45% 1,000 ML IV SCH (11:12)
--- NOTE | 2017-10-09 11:14 | ULT ---
DOPPLER VENOUS ULTRASOUND OF BOTH LOWER EXTREMITIE: Date: 10/09/17 INDICATION: Bilateral lower extremity edema, concern for deep venous thrombosis. TECHNIQUE: Darden scale, color Doppler, and vascular duplex with spectral analysis was performed of the deep venou s structures of both lower extremities. The common femoral vein, superficial femoral vein, proximal g reater saphenous vein, proximal greater profunda vein, popliteal, and posterior tibial veins were ass essed. FINDINGS: Normal compression, flow, and augmentation was seen within the deep venous structures of both lower e xtremities. IMPRESSION: No evidence of deep venous thrombosis within both lower extremities. POS: MILO
[2017-10-09 11:15] LABS: Potassium 2.8 mmol/L (3.5-5.1)
[2017-10-09] MEDS: HumaLOG 300 UNITS/3 ML VIAL SC SCH ×2 (11:54→17:31)
[2017-10-09] MEDS ORDERED: Vancomycin HCl 1 GM in Premix Bag 1 BAG IVPB SCH (13:00)
[2017-10-09] MEDS ORDERED: Haloperidol Lactate 5 MG/ML VIAL SLOW IVP PRN (13:37)
[2017-10-09] MEDS ORDERED: Multivitamins, Adult 10 ML, Thiamine HCl 100 MG, Folic Acid 1 MG in Dextrose 5 %-0.45 %... IV SCH (13:45)
[2017-10-09] MEDS ORDERED: Sterile Water 10 ML VIAL FS SCH (13:45)
[2017-10-09] MEDS ORDERED: Ziprasidone 20 MG VIAL IM SCH (13:45)
[2017-10-09 14:57] LABS: Base Excess-Venous 4.7 mmol/L (0 (+/- 2.5)); Bicarbonate (HCO3v) 31.2 mmol/L (1.0-85.0); CO2 Tension (PvCO2) 52.9 mmHg (41.0-51.0); Calcium, Ionized 0.97 mmol/L (1.12-1.32); Hemoglobin - Calc 14.3 g/dL (12.0-18.0); O2 Tension (PvO2) 51.7 mmHg (35.0-45.0); Potassium 2.5 mmol/L (3.4-4.7); T. Carbon Dioxide 32.9 mmol/L (1.0-85.0); pH (Venous) 7.379 (7.35-7.45); vO2 Saturation-calc 84.7 % (94-98)
[2017-10-09] MEDS ORDERED: Lorazepam 2 MG/ML VIAL SLOW IVP SCH ×2 (15:00→15:15)
[2017-10-09] MEDS: Lorazepam 2 MG/ML VIAL SLOW IVP PRN ×2 (15:19→17:30)
[2017-10-09 16:19] LABS: Anion Gap 11 mmol/L (10-20); BUN (Urea Nitrogen) 22 mg/dL (8.4-25.7); Calc. Creatinine Clearance 83 mL/min (70-130); Calcium 7.7 mg/dL (7.8-10.44); Carbon Dioxide 28 mmol/L (23-31); Chloride 104 mmol/L (98-107); Estimated GFR-MDRD 51; Glucose 177 mg/dL (80-115); Sodium 140 mmol/L (136-145)
[2017-10-09 16:22] LABS: Potassium 2.9 mmol/L (3.5-5.1)
--- NOTE | 2017-10-09 16:27 | PDOC.EVN ---
Event Note - Event Note Event Note: [facility] became acuely combative. required geodon im + iv ativan. started banana bag, suspect ETOH + narcotic withdrawal
--- NOTE | 2017-10-09 16:53 | PDOC.EVN ---
Event Note - Event Note Event Note: K+ 2.9- institute electrolyte replacement protocol
[2017-10-09] MEDS ORDERED: Potassium Chloride 40 MEQ in Sodium Chloride 0.9% 250 ML 150 ML IVPB PRN (17:27)
[2017-10-09] MEDS: Insulin Glargine 10 UNITS in Pre-Filled Syringe 1 EACH SC SCH (20:28)
[2017-10-09] MEDS: Atorvastatin Calcium 20 MG TAB PO SCH (20:29)
[2017-10-09] MEDS: Lorazepam 2 MG/ML VIAL SLOW IVP SCH (22:16)
[2017-10-09 22:55] LABS: Anion Gap 11 mmol/L (10-20); BUN (Urea Nitrogen) 18 mg/dL (8.4-25.7); Calc. Creatinine Clearance 84 mL/min (70-130); Calcium 8.5 mg/dL (7.8-10.44); Carbon Dioxide 27 mmol/L (23-31); Chloride 104 mmol/L (98-107); Estimated GFR-MDRD 51; Glucose 209 mg/dL (80-115); Potassium 3.4 mmol/L (3.5-5.1); Sodium 139 mmol/L (136-145)
[2017-10-10 05:55] LABS: #Basophils 0.1 thou/uL (0.0-0.2); #Eosinphils 0.3 thou/uL (0.0-0.7); #Lymphocytes 1.6 thou/uL (1.20-3.40); #Monocytes 0.6 thou/uL (0.11-0.59); #Neutrophils 6.3 thou/uL (1.40-6.50); %Basophils 0.7 % (0.0-1.0); %Eosinophils 3.4 % (0.0-10.0); %Lymphocytes 18.6 % (21.0-51.0); %Monocytes 6.3 % (0.0-10.0); %Neutrophils 71.1 % (42.0-75.0); Mean Corpuscular HGB CONC 35.1 g/dL (32.0-36.0); Mean Corpuscular Hemoglobin 32.7 pg (27.0-31.0); Mean Corpuscular Volume 93.1 fl (80.0-94.0); Mean Platelet Volume 7.3 fL (7.4-10.4); Platelet Count 218 thou/uL (130-400); Red Blood Cell (RBC) Count 3.98 mill/uL (4.70-6.10); White Blood Cell (WBC) Count 8.8 thou/uL (4.8-10.8)
[2017-10-10] MEDS: Lorazepam 2 MG/ML VIAL SLOW IVP SCH ×3 (06:12→20:53)
[2017-10-10] MEDS: cefTRIAXone\\ROCEPHIN 1 GM in Syringe 10 ML IVPB SCH (06:17)
[2017-10-10 06:39] LABS: Anion Gap 10 mmol/L (10-20); BUN (Urea Nitrogen) 16 mg/dL (8.4-25.7); Calc. Creatinine Clearance 100 mL/min (70-130); Calcium 8.3 mg/dL (7.8-10.44); Carbon Dioxide 26 mmol/L (23-31); Cardiac Risk 3.8 (Less than 4.5); Chloride 108 mmol/L (98-107); Cholesterol 194 mg/dl (< 200 Desired); Estimated GFR-MDRD 53; Glucose 187 mg/dL (80-115); HDL Cholesterol 51 mg/dL (>60 Neg Risk); LDL Cholesterol, Calculated 113 mg/dL; Phosphorus 1.8 mg/dL (2.3-4.7); Potassium 3.2 mmol/L (3.5-5.1); Sodium 141 mmol/L (136-145); Triglycerides 151 mg/dL (Less than 150)
--- NOTE | 2017-10-10 09:20 | RAD ---
CHEST 1 VIEW: Date: 10/10/17 COMPARISON: 10/08/17. HISTORY: Shortness of breath. Possible pneumonia. FINDINGS: Portable supine chest radiograph demonstrates an enlarged cardiac silhouette. There is leftward rotat ion of the cardiac silhouette. Pulmonary vessels and hilum are normal. Costophrenic angles are clear. No masses or consolidation. No pneumothorax or osseous abnormalities. IMPRESSION: No acute cardiopulmonary process. POS: OFF
[2017-10-10] MEDS: Lorazepam 2 MG/ML VIAL SLOW IVP PRN (09:59)
[2017-10-10] MEDS: Sodium Chloride 0.45% 1,000 ML IV SCH (10:03)
[2017-10-10] MEDS: HumaLOG 300 UNITS/3 ML VIAL SC SCH ×3 (10:04→17:47)
[2017-10-10] MEDS: Heparin 5,000 UNITS/ML VIAL SC SCH ×2 (10:04→20:54)
[2017-10-10] MEDS: Insulin Glargine 10 UNITS in Pre-Filled Syringe 1 EACH SC SCH (10:05)
--- NOTE | 2017-10-10 11:20 | PDOC.PN ---
- Subjective Encounter Start Date: 10/10/17 Encounter Start Time: 11:18 Subjective: alert, oriented x 3, calm - Objective Resuscitation Status: Resuscitation Status FULL:Full Resuscitation MAR Reviewed: Yes Vital Signs & Weight: Vital Signs (12 hours) Temp Pulse Pulse Pulse Resp BP BP 10/10/17 09:42 75 72 142/68 H 160/70 H 10/10/17 08:00 97.9 F 64 18 10/10/17 07:00 97.9 F 64 18 10/10/17 04:00 98 F 74 16 10/10/17 00:00 98.6 F 72 18 BP Pulse Ox Pulse Ox Pulse Ox 10/10/17 09:42 100 100 10/10/17 08:00 10/10/17 07:00 157/74 H 100 10/10/17 04:00 158/63 H 100 10/10/17 00:00 120/88 100 Weight Weight 290 lb 7 oz Most Recent Monitor Data Heart Rate from ECG 70 NIBP 114/91 NIBP BP-Mean 93 Respiration from ECG 18 SpO2 100 I&O: 10/09/17 10/10/17 10/11/17 06:59 06:59 06:59 Intake Total 409 2999.8 Output Total 2330 2145 Balance -1921 854.8 Result Diagrams: 10/10/17 04:41 10/10/17 04:41 Additional Labs: Accuchecks 10/10/17 10/10/17 10/09/17 10:36 06:18 20:30 POC Glucose 171 H 191 H 242 H 10/09/17 10/09/17 10/09/17 15:34 11:56 10:34 POC Glucose 180 H 173 H 206 H 10/09/17 09:08 POC Glucose 222 H Phys Exam - Physical Examination Constitutional: NAD Neck: no JVD Respiratory: clear to auscultation bilateral Cardiovascular: RRR, no significant murmur Gastrointestinal: soft, non-tender, positive bowel sounds Musculoskeletal: edema present Dx/Plan (1) Encephalopathy Code(s): G93.40 - ENCEPHALOPATHY, UNSPECIFIED Status: Acute (2) Hyperosmolar (nonketotic) coma Code(s): E11.01 - TYPE 2 DIABETES MELLITUS WITH HYPEROSMOLARITY WITH COMA Status: Resolved (3) DM (diabetes mellitus), type 2, uncontrolled Code(s): E11.65 - TYPE 2 DIABETES MELLITUS WITH HYPERGLYCEMIA Status: Acute Qualifiers: Diabetes mellitus terminal gauger supervisor insulin use: without terminal gauger supervisor use Diabetes mellitus complication status: with other specified complication Qualified Code (s): E11.69 - Type 2 diabetes mellitus with other specified complication; E11.65 - Type 2 diabetes mellitus with hyperglycemia; E11.65 - Type 2 diabetes mellitus with hyperglycemia; E11.65 - Type 2 diabetes mellitus with hyperglycemia; E11.65 - Type 2 diabetes mellitus with hyperglycemia (4) Hypertension Code(s): I10 - ESSENTIAL (PRIMARY) HYPERTENSION Status: Chronic Qualifiers: Hypertension type: essential hypertension Qualified Code(s): I10 - Essential (primary) hypertension - Plan cont accu/ ss/ start metformin -: obtain HgA1c -: cont po ativan, vitamins -: po K+ * .
[2017-10-10] MEDS ORDERED: Potassium Chloride 20 MEQ TAB PO SCH ×2 (11:30→15:30)
[2017-10-10 12:01] LABS: Hemoglobin A1c 7.9 % (4.0-6.0)
[2017-10-10] MEDS ORDERED: cefTRIAXone\\ROCEPHIN 1 GM in Sodium Chloride 0.9% 100 ML IVPB SCH (14:00)
[2017-10-10] MEDS: metFORMIN 500 MG TAB PO SCH ×2 (14:56→20:54)
--- NOTE | 2017-10-10 15:24 | PRG ---
DATE OF SERVICE: 10/10/2017 SERVICE: Pulmonary Medicine. INTERVAL HISTORY: The patient is actually much more cool, calm and collected today. He got 2 p.r.n. doses of Ativan in the last 24 hours on top of his scheduled 2 mg q.8 h. This is a total 10 mg of A tivan. As such, we will continue our 2 mg q.8 h. for the next 24 hours. He is talking in full sente nces. He knows where he is, but is not quite aware of what the situation is currently. PHYSICAL EXAMINATION: VITAL SIGNS: Afebrile, pulse 75, blood pressure 115/77, respirations 20, saturation 100% on room air . GENERAL: Patient is awake, alert, no apparent distress. LUNGS: Decent air entry bilaterally. There is no prolonged expiratory phase, wheezing, rhonchi or c rackles. HEART: Normal rate, regular. ABDOMEN: Soft, nontender, nondistended. Bowel sounds are positive. MUSCULOSKELETAL: No cyanosis or clubbing. There is 1+ pitting in the bilateral lower extremities wi th bilateral lower extremity erythema which is roughly symmetric. LABORATORY DATA: WBC 8.8, hemoglobin 13.0, platelets 218,000. Creatinine down trending 1.34. Potas sium 3.2. Phosphorus 1.8. Magnesium 2.0. Urine culture is growing coag negative staph. Blood cult ures x2 are unremarkable. IMAGING: Chest x-ray demonstrates rotation of the lungs. Outside of this, there is no acute lung pr ocess occurring here. Echocardiogram demonstrates normal ejection fraction with no significant valvular abnormalities. ASSESSMENT: 1. Acute hypoxic respiratory failure, resolved. 2. Metabolic encephalopathy. 3. Delirium tremens (patient drinks a box of wine on a daily basis). 4. Opiate abuse. 5. Type 2 diabetes mellitus with hyperglycemia (unlikely to be diabetic ketoacidosis or HONK on pres entation). DISCUSSION PLAN: We will give him some potassium and phosphorus today. We will continue our schedul ed Ativan over the next 24 hours, which will need to be slowly tapered away through time. Pulmonary Critical Care will continue to follow along for the time being. However, need to remain in the IMCU until he is much more level headed on very low doses of Ativan without any p.r.n. use over a 24-hour period.
[2017-10-10] MEDS ORDERED: Potassium Phosphate 30 MMOL in Sodium Chloride 0.9% 500 ML IVPB SCH (16:00)
--- NOTE | 2017-10-10 19:52 | CON ---
DATE OF CONSULTATION: 10/09/2017 REASON FOR CONSULTATION: Altered mental status. HISTORY OF PRESENT ILLNESS: Mr. Fox is a 66-year-old male who has been concerned for evaluation of altered mental status. History is obtained from patient's medical chart as patient is unable to pro vide and there are no family member present at bedside. Apparently, patient was recently diagnosed w ith diabetes 2 days ago. He was started on glimepiride by his primary care physician. He was rob t in for altered mentation to the hospital. He fell asleep while on the phone earlier in the day and the family was unable to get to him on the phone. When EMS arrived, he was found on the floor naked , covered in urine. He was nonresponsive to the questions. I am being asked to further evaluate thi s patient. According to the nurse, the patient had to be restrained with four-point restraint as he was combative and moving all 4 extremities. He was not following any commands. He has a history of heavy alcohol use. It is also noted that he may have had taken multiple pain medications. PAST MEDICAL HISTORY: Significant for diabetes, degenerative joint disease, anxiety, depression. PAST SURGICAL HISTORY: Significant for injections in his back. CURRENT MEDICATIONS: Please review MAR. ALLERGIES: No known drug allergies. SOCIAL HISTORY: He currently lives alone. He is a former smoker. He drinks alcohol on daily basis. There is no history of illicit drug use. FAMILY HISTORY: Significant for father with cancer. REVIEW OF SYSTEMS: As mentioned in the HPI. otherwise negative. PHYSICAL EXAMINATION: VITAL SIGNS: Blood pressure of 114/91, pulse of 108, temperature of 97.9, respirations of 18, O2 sat s of 100% on room air. GENERAL: Well-developed, well-nourished male in no apparent distress. RESPIRATORY: Clear to auscultation bilaterally. CARDIOVASCULAR: Regular rate and rhythm. NEUROLOGIC: Mental status: The patient is sedated. He is not able to follow any commands. Cranial nerves: Pupils are 3 mm and reactive. Visual kirk, visual field test unable to perform. Externa l muscles is intact. Face appears symmetric. Motor exam showed normal tone and bulk. He moves all 4 extremities spontaneously with strength. Sensory: He withdraws to pain in both upper and lower ex tremities. Babinski: Plantar responses flexion bilaterally. Gait and Romberg coordination could no t be tested. LABORATORY DATA: Reviewed, which included CBC, CMP, lipid profile, urinalysis, urine drug screen, pl asma alcohol level which is significant for potassium of 3.4, creatinine of 1.38, glucose of 209, tot al cholesterol of 194, LDL of 113, HDL of 51, and triglycerides of 151, otherwise unremarkable. IMAGING STUDIES: CT head without contrast was reviewed which showed no acute intracranial abnormalit y. IMPRESSION: 1. Altered mental status, likely toxic metabolic encephalopathy. 2. Acute hypoxic respiratory failure. PLAN: Mr. Fox is a pleasant 66-year-old male who presented with the confusion and been t old by the nurse that patient has a history of heavy alcohol use, so this could be toxic metabolic en cephalopathy secondary to alcohol withdrawal. At this time, I would recommend continuing current med ical management. When the patient is medically stable, if there is a concern for stroke, then obtain MRI brain without contrast, no further neurological workup needed from my standpoint. Thank you for consultation.
[2017-10-10] MEDS: Acetaminophen 325 MG TAB PO PRN (20:54)
[2017-10-10] MEDS: Atorvastatin Calcium 20 MG TAB PO SCH (20:54)
[2017-10-10] MEDS ORDERED: Insulin Detemir 100 UNITS/ML 10 UNITS in Pre-Filled Syringe 1 EACH SC SCH (21:00)
[2017-10-10] MEDS ORDERED: Insulin Glargine 10 UNITS in Pre-Filled Syringe SC SCH (21:00)
[2017-10-11] MEDS: Lorazepam 2 MG/ML VIAL SLOW IVP SCH ×2 (04:15→14:45)
[2017-10-11 04:29] LABS: Anion Gap 10 mmol/L (10-20); BUN (Urea Nitrogen) 12 mg/dL (8.4-25.7); Calc. Creatinine Clearance 118 mL/min (70-130); Calcium 8.3 mg/dL (7.8-10.44); Carbon Dioxide 24 mmol/L (23-31); Chloride 114 mmol/L (98-107); Estimated GFR-MDRD 65; Glucose 149 mg/dL (80-115); Potassium 3.5 mmol/L (3.5-5.1); Sodium 144 mmol/L (136-145)
[2017-10-11] MEDS: HumaLOG 300 UNITS/3 ML VIAL SC SCH ×3 (09:50→16:44)
[2017-10-11] MEDS: Heparin 5,000 UNITS/ML VIAL SC SCH ×2 (09:51→21:37)
[2017-10-11] MEDS: metFORMIN 500 MG TAB PO SCH ×3 (09:54→21:36)
--- NOTE | 2017-10-11 11:26 | PDOC.PN ---
- Subjective Encounter Start Date: 10/11/17 Encounter Start Time: 11:25 Subjective: alert, oriented, calm - Objective Resuscitation Status: Resuscitation Status FULL:Full Resuscitation MAR Reviewed: Yes Vital Signs & Weight: Vital Signs (12 hours) Temp Pulse Resp BP Pulse Ox 10/11/17 11:04 98.5 F 75 20 169/94 H 10/11/17 07:28 98.0 F 71 19 158/93 H 100 10/11/17 05:55 68 20 159/79 H 100 10/11/17 02:00 65 20 130/53 L 99 10/11/17 00:00 98.9 F 70 20 119/60 98 Weight Weight 285 lb 1 oz Most Recent Monitor Data Heart Rate from ECG 70 NIBP 114/91 NIBP BP-Mean 93 Respiration from ECG 18 SpO2 100 I&O: 10/10/17 10/11/17 10/12/17 06:59 06:59 06:59 Intake Total 2999.8 1740 Output Total 2145 425 Balance 854.8 1315 Result Diagrams: 10/10/17 04:41 10/11/17 03:54 Additional Labs: Accuchecks 10/11/17 10/11/17 10/10/17 10:21 06:09 20:53 POC Glucose 185 H 160 H 146 H 10/10/17 16:47 POC Glucose 135 H Phys Exam - Physical Examination Neck: no JVD Respiratory: clear to auscultation bilateral Cardiovascular: RRR, no significant murmur Gastrointestinal: soft, non-tender, positive bowel sounds Musculoskeletal: no edema Dx/Plan (1) Encephalopathy Code(s): G93.40 - ENCEPHALOPATHY, UNSPECIFIED Status: Resolved (2) Hyperosmolar (nonketotic) coma Code(s): E11.01 - TYPE 2 DIABETES MELLITUS WITH HYPEROSMOLARITY WITH COMA Status: Resolved (3) DM (diabetes mellitus), type 2, uncontrolled Code(s): E11.65 - TYPE 2 DIABETES MELLITUS WITH HYPERGLYCEMIA Status: Acute Qualifiers: Diabetes mellitus intermediate project manager insulin use: without fpc use Diabetes mellitus complication status: with other specified complication Qualified Code (s): E11.69 - Type 2 diabetes mellitus with other specified complication; E11.65 - Type 2 diabetes mellitus with hyperglycemia; E11.65 - Type 2 diabetes mellitus with hyperglycemia; E11.65 - Type 2 diabetes mellitus with hyperglycemia; E11.65 - Type 2 diabetes mellitus with hyperglycemia (4) Hypertension Code(s): I10 - ESSENTIAL (PRIMARY) HYPERTENSION Status: Chronic Qualifiers: Hypertension type: essential hypertension Qualified Code(s): I10 - Essential (primary) hypertension (5) Alcohol abuse Code(s): F10.10 - ALCOHOL ABUSE, UNCOMPLICATED Status: Acute - Plan move to medical -: cont prn lorazepam, thiamine -: cont accu/ ss/metformin- DC long acting insulin -: add amlodipine for HTN * .
[2017-10-11] MEDS: Amlodipine 5 MG TAB PO SCH (14:46)
[2017-10-11] MEDS ORDERED: Lorazepam 2 MG/ML VIAL SLOW IVP SCH (20:00)
[2017-10-11] MEDS ORDERED: Sodium Chloride 0.65% Nasal 44 ML BOT EA NARE PRN (20:51)
[2017-10-11] MEDS: Atorvastatin Calcium 20 MG TAB PO SCH (21:36)
[2017-10-11] MEDS: Temazepam 15 MG CAP PO PRN (21:36)
[2017-10-12 04:56] LABS: Anion Gap 11 mmol/L (10-20); BUN (Urea Nitrogen) 10 mg/dL (8.4-25.7); Calc. Creatinine Clearance 132 mL/min (70-130); Calcium 8.5 mg/dL (7.8-10.44); Carbon Dioxide 20 mmol/L (23-31); Chloride 114 mmol/L (98-107); Estimated GFR-MDRD 75; Glucose 110 mg/dL (80-115); Potassium 3.6 mmol/L (3.5-5.1); Sodium 141 mmol/L (136-145)
[2017-10-12] MEDS: metFORMIN 500 MG TAB PO SCH ×3 (08:31→20:18)
[2017-10-12] MEDS: Amlodipine 5 MG TAB PO SCH (08:32)
[2017-10-12] MEDS: Heparin 5,000 UNITS/ML VIAL SC SCH ×2 (08:33→20:22)
[2017-10-12] MEDS: HumaLOG 300 UNITS/3 ML VIAL SC SCH ×3 (09:58→17:00)
[2017-10-12] MEDS: Acetaminophen 325 MG TAB PO PRN ×2 (10:12→20:18)
--- NOTE | 2017-10-12 14:59 | PDOC.PN ---
- Subjective Encounter Start Date: 10/12/17 Encounter Start Time: 14:58 Patient seen and examined, states he still feels weak and has some difficulty walking due to weakness, no other issues. No family at bedside, all questions answered. - Objective Resuscitation Status: Resuscitation Status FULL:Full Resuscitation Vital Signs & Weight: Vital Signs (12 hours) Temp Pulse Resp BP Pulse Ox 10/12/17 11:00 97.7 F 79 16 135/74 98 10/12/17 08:32 67 10/12/17 08:00 98.1 F 67 18 153/83 H 96 10/12/17 04:34 98.4 F 67 20 125/77 97 Weight Weight 285 lb 1 oz Most Recent Monitor Data Heart Rate from ECG 70 NIBP 114/91 NIBP BP-Mean 93 Respiration from ECG 18 SpO2 100 I&O: 10/11/17 10/12/17 10/13/17 06:59 06:59 06:59 Intake Total 1740 490 Output Total 425 427 Balance 1315 63 Result Diagrams: 10/10/17 04:41 10/12/17 03:35 Additional Labs: Accuchecks 10/12/17 10/12/17 10/11/17 12:17 05:48 20:59 POC Glucose 114 H 113 H 145 H 10/11/17 16:18 POC Glucose 104 Phys Exam - Physical Examination Constitutional: NAD obese HEENT: PERRLA, moist MMs, sclera anicteric Neck: no nodes, no JVD, supple Respiratory: no wheezing, no rales, no rhonchi Cardiovascular: RRR, no significant murmur, no rub Gastrointestinal: soft, non-tender, no distention Musculoskeletal: pulses present (B/L), edema present (trace, B/L) Neurological: non-focal, normal sensation Psychiatric: normal affect, A&O x 3 Skin: no rash, normal turgor Dx/Plan (1) Alcohol abuse Code(s): F10.10 - ALCOHOL ABUSE, UNCOMPLICATED Status: Acute (2) DM (diabetes mellitus), type 2, uncontrolled Code(s): E11.65 - TYPE 2 DIABETES MELLITUS WITH HYPERGLYCEMIA Status: Acute Qualifiers: Diabetes mellitus fpc insulin use: without fpc use Diabetes mellitus complication status: with other specified complication Qualified Code (s): E11.69 - Type 2 diabetes mellitus with other specified complication; E11.65 - Type 2 diabetes mellitus with hyperglycemia; E11.65 - Type 2 diabetes mellitus with hyperglycemia; E11.65 - Type 2 diabetes mellitus with hyperglycemia; E11.65 - Type 2 diabetes mellitus with hyperglycemia (3) Obesity, morbid, BMI 40.0-49.9 Code(s): E66.01 - MORBID (SEVERE) OBESITY DUE TO EXCESS CALORIES Status: Acute (4) Hypertension Code(s): I10 - ESSENTIAL (PRIMARY) HYPERTENSION Status: Chronic Qualifiers: Hypertension type: essential hypertension Qualified Code(s): I10 - Essential (primary) hypertension - Plan * Continue current plan of care * will consult PT * walker will need to be arranged by case management for now * DC plans in 24 - 48hrs if patient stable and labs looking well * case and plan d/w patient at length, he understands and agrees with this plan
[2017-10-12] MEDS ORDERED: Lorazepam 2 MG/ML VIAL SLOW IVP SCH (20:00)
[2017-10-12] MEDS: Atorvastatin Calcium 20 MG TAB PO SCH (20:18)
[2017-10-12] MEDS: Lorazepam 2 MG/ML VIAL SLOW IVP SCH (20:19)
[2017-10-12] MEDS ORDERED: Boudreaux's Butt Paste 16% Oin 30 GM TUBE TOP PRN (21:53)
[2017-10-13 05:14] LABS: Anion Gap 11 mmol/L (10-20); BUN (Urea Nitrogen) 12 mg/dL (8.4-25.7); Calc. Creatinine Clearance 126 mL/min (70-130); Calcium 8.6 mg/dL (7.8-10.44); Carbon Dioxide 20 mmol/L (23-31); Chloride 114 mmol/L (98-107); Estimated GFR-MDRD 71; Glucose 106 mg/dL (80-115); Potassium 3.7 mmol/L (3.5-5.1); Sodium 141 mmol/L (136-145)
[2017-10-13] MEDS: HumaLOG 300 UNITS/3 ML VIAL SC SCH ×3 (08:28→16:58)
[2017-10-13] MEDS: Amlodipine 5 MG TAB PO SCH (08:44)
[2017-10-13] MEDS: metFORMIN 500 MG TAB PO SCH ×3 (08:45→21:04)
[2017-10-13] MEDS: Heparin 5,000 UNITS/ML VIAL SC SCH ×2 (08:45→21:06)
[2017-10-13] MEDS: Lorazepam 2 MG/ML VIAL SLOW IVP SCH ×2 (08:45→21:05)
--- NOTE | 2017-10-13 13:33 | PRG ---
DATE OF SERVICE: 10/13/2017 SERVICE: Pulmonary Medicine. INTERVAL HISTORY: The patient is doing great from a respiratory and mentation standpoint. He is on room air. He is breathing comfortably. He has no chest pain, shortness of breath, fevers or chills. He is tolerating his taper beautifully, off of the Ativan. He has not required any p.r.n. doses ov er the last 24 hours. OBJECTIVE: VITAL SIGNS: Afebrile, pulse 66, blood pressure 128/76, respirations 16, saturation 98% on room air. GENERAL: The patient is awake, alert, in no apparent distress. LUNGS: Excellent air entry without prolonged expiratory phase, wheezing, rhonchi or crackles. HEART: Normal rate, regular. ABDOMEN: Soft, nontender, nondistended. Bowel sounds are positive. MUSCULOSKELETAL: No cyanosis or clubbing. No pitting in the bilateral lower extremities. NEUROLOGIC: Grossly nonfocal. LABORATORY DATA: Chloride 114 and roughly stable, bicarbonate 20 and also stable. Basic metabolic p rofile is otherwise unremarkable. Creatinine 1.04 and beautifully down trending. Anion gap is min l. ASSESSMENT: 1. Acute hypoxic respiratory failure, resolved. 2. Metabolic encephalopathy. 3. Delirium tremens. 4. Opiate abuse. 5. Type 2 diabetes mellitus without DKA or HONK on presentation. PLAN: The patient remains on his Ativan taper. By tomorrow, if he has not required any p.r.n. doses of Ativan, he can be discharged from the hospital. At this point, he has no further requirements fo r inpatient Pulmonary or Critical Care opinion. As such, I will sign off. Please call with addition al questions or concerns moving forward.
--- NOTE | 2017-10-13 14:57 | PDOC.EVN ---
Event Note - Event Note Event Note: DC SUMMARY #[id number]
[2017-10-13] MEDS: Acetaminophen 325 MG TAB PO PRN (15:55)
--- NOTE | 2017-10-13 19:31 | DIS ---
DATE OF ADMISSION: 10/09/2017 DATE OF DISCHARGE: 10/13/2017 ADMITTING DIAGNOSES: Altered mental status; history of diabetes mellitus, type 2; history of degener ative joint disease; history of anxiety; history of depression as well as a history of alcohol abuse. DISCHARGE DIAGNOSES: Altered mental status, resolved, secondary to alcohol; diabetes mellitus, stabl e; obesity; hypertension, stable; anxiety, stable; degenerative joint disease. HOSPITAL COURSE: This is a 66-year-old male, who presented with altered mental status at the emergen cy room. The patient was admitted to the Internal Medicine team, was also followed very closely by [facility] as well as Neurology. The patient had a brain CT done as well as a cervical s pine CT performed as well as a lumbar spine CT performed. The patient was found to have no abnormali ties on any of these imaging studies except canal stenosis; however, no acute intracranial abnormalit ies were noted. The patient had an echocardiogram performed as well during his hospitalization and w as found to have an ejection fraction of 55% to 60% with mild MR present. The patient at point in ti me of discharge was stable. Denied any nausea, vomiting, diarrhea, constipation, chest pain, fevers, chills, or shortness of breath. The patient stated that per his course, he was back to baseline and that he was ready to go home. The patient had troponins, which were negative x6, and cleared by sub specialists for discharge. DISPOSITION: Home. MEDICATIONS: See MAR. DIET: Low fat, low calorie, high fiber diet. Stop drinking. CONDITION: Stable. PROGNOSIS: Guarded. ACTIVITY: As tolerated with assistance as appropriate. FOLLOWUP: Follow up with PCP in 1 week. Case and plan discussed with patient at length. He understands and agrees with this plan.
[2017-10-13] MEDS: Atorvastatin Calcium 20 MG TAB PO SCH (21:04)
[2017-10-13] MEDS: Temazepam 15 MG CAP PO PRN (23:30)
[2017-10-14 04:42] LABS: Anion Gap 11 mmol/L (10-20); BUN (Urea Nitrogen) 14 mg/dL (8.4-25.7); Calc. Creatinine Clearance 129 mL/min (70-130); Calcium 8.5 mg/dL (7.8-10.44); Carbon Dioxide 16 mmol/L (23-31); Chloride 114 mmol/L (98-107); Estimated GFR-MDRD 73; Glucose 99 mg/dL (80-115); Potassium 3.7 mmol/L (3.5-5.1); Sodium 137 mmol/L (136-145)
[2017-10-14] MEDS: Acetaminophen 325 MG TAB PO PRN ×2 (06:29→14:02)
[2017-10-14 07:27] VITALS: BP 119/69; TEMP 98.6
[2017-10-14] MEDS: HumaLOG 300 UNITS/3 ML VIAL SC SCH ×2 (08:28→12:29)
[2017-10-14] MEDS: Amlodipine 5 MG TAB PO SCH (08:28)
[2017-10-14] MEDS: metFORMIN 500 MG TAB PO SCH ×2 (08:30→14:02)
[2017-10-14] MEDS: Heparin 5,000 UNITS/ML VIAL SC SCH (08:31)
== END 2017-10-14 16:54 | DRG 637 ==
LOC: ERS 22:17 → CCU 10-09 00:40 → IMCU/EMU 10-09 13:43 → T4-A 10-11 18:15
PROVIDERS: ADMIT Internal Medicine; ATTEND Internal Medicine
DX: E11.01 Type 2 diabetes mellitus with hyperosmolarity with coma (principal); G92 Toxic encephalopathy; J96.01 Acute respiratory failure with hypoxia; E87.1 Hypo-osmolality and hyponatremia; E87.2 Acidosis; N18.3 Chronic kidney disease, stage 3 (moderate); I12.9 Hypertensive chronic kidney disease with stage 1 through stage 4 chronic kidney disease, or unspecified chronic kidney disease; E11.22 Type 2 diabetes mellitus with diabetic chronic kidney disease; F32.9 Major depressive disorder, single episode, unspecified; F41.9 Anxiety disorder, unspecified; Z79.899 Other long term (current) drug therapy; Z79.891 Long term (current) use of opiate analgesic; G89.4 Chronic pain syndrome; E86.0 Dehydration; F11.10 Opioid abuse, uncomplicated; E11.65 Type 2 diabetes mellitus with hyperglycemia; M19.90 Unspecified osteoarthritis, unspecified site; F10.10 Alcohol abuse, uncomplicated; E66.01 Morbid (severe) obesity due to excess calories
CPT/HCPCS: 36415; 36416; 51701; 70450; 71045; 72125; 72131; 80048; 80053; 80061; 80306; 80307; 81003; 82010; 82330; 82550; 82553; 82803; 82805; 83036; 83605; 83735; 83880; 83930; 83935; 84100; 84484; 85014; 85025; 86140; 87040; 87086; 87324; 87449; 93005; 93306; 93970; 94760; 96361; 96365; 96375; A4216; G8978-GP-CL; G8979-GP-CJ; G8987-GO-CJ; G8988-GO-CJ; G8989-GO-CJ; G8996-GN-CJ; G8997-GN-CH; J0696; J1644; J1815; J2060; J3370; J3411; J3480; J7042; J7050

== ENCOUNTER 2020-04-09 18:46 | Inpatient (IN) | payer MEDICARE ==
[~2020-04-09 18:46] MED LIST: Iopamidol-370 76% 500 ML 1 ML ONE
[2020-04-09] MEDS ORDERED: Vancomycin 1 GM/200 ML BAG ONE (19:19)
[2020-04-09] MEDS ORDERED: Morphine 4 MG/ML VIAL ONE (19:19)
[2020-04-09] MEDS ORDERED: Cefepime 2 GM VIAL ONE (19:19)
[2020-04-09 19:23] LABS: #Basophils 0.1 thou/uL (0.0-0.2); #Eosinphils 0.2 thou/uL (0.0-0.7); #Lymphocytes 1.5 thou/uL (1.20-3.40); #Monocytes 0.9 thou/uL (0.11-0.59); #Neutrophils 5.1 thou/uL (1.40-6.50); %Basophils 0.9 % (0.0-1.0); %Eosinophils 2.7 % (0.0-10.0); %Lymphocytes 19.8 % (21.0-51.0); %Monocytes 11.1 % (0.0-10.0); %Neutrophils 65.6 % (42.0-75.0); Hemoglobin 13.9 g/dL (14.0-18.0); Mean Corpuscular HGB CONC 35.8 g/dL (32.0-36.0); Mean Platelet Volume 7.7 fL (7.4-10.4); Platelet Count 298 thou/uL (130-400); RBC Distribution Width 12.5 % (11.5-14.5); Red Blood Cell (RBC) Count 4.09 mill/uL (4.70-6.10); White Blood Cell (WBC) Count 7.7 thou/uL (4.8-10.8)
[2020-04-09 19:45] LABS: ALT (SGPT) 27 U/L (8-55); AST (SGOT) 22 U/L (5-34); Albumin 3.6 g/dL (3.4-4.8); Alkaline Phosphatase 78 U/L (40-110); Anion Gap 17 mmol/L (10-20); BUN (Urea Nitrogen) 38 mg/dL (8.4-25.7); Bilirubin, Total 0.7 mg/dL (0.2-1.2); Calc. Creatinine Clearance 0 mL/min (70-130); Calcium 9.2 mg/dL (7.8-10.44); Carbon Dioxide 22 mmol/L (23-31); Chloride 104 mmol/L (98-107); Estimated GFR-MDRD 35; Globulin 4.1 g/dL (2.4-3.5); Glucose 105 mg/dL (80-115); Potassium 4.2 mmol/L (3.5-5.1); Protein, Total 7.7 g/dL (5.8-8.1); Sodium 139 mmol/L (136-145)
[2020-04-09] MEDS ORDERED: metroNIDAZOLE 500 MG/100 ML BAG ONE (20:42)
--- NOTE | 2020-04-09 21:16 | CT ---
CT SCAN OF THE LEFT LEG, ANKLE AND FOOT WITH IV CONTRAST: Date: 04-09-2020 History: Left lower extremity pain and swelling. FINDINGS: There is edema with enduration of the subcutaneous fat in the left lower extremity. No abnormally loc ulated fluid collection is seen. The bones are intact. No bony destruction or periosteal reaction is seen to suggest osteomyelitis. A joint effusion is seen in the knee joint. There are degenerative tyree nges in the knee joint. IMPRESSION: Right lower extremity cellulitis without evidence of soft tissue abscess or osteomyelitis. POS: VICKI
--- NOTE | 2020-04-09 22:24 | ULT ---
EXAM: Left lower extremity venous Doppler US HISTORY: left lower extremity edema and pain FINDINGS: Grayscale, color-flow, Doppler evaluation, spectral analysis of the left lower extremity venous struc tures is performed with 2-D imaging. The left common femoral, superficial femoral, popliteal, posterior tibial, proximal greater saphenous and profunda femoral veins are imaged. There is normal luminal compressibility, flow, and augmentation the visualized deep venous structures of the left lower extremity. IMPRESSION: No evidence of a deep vein thrombosis in the left lower extremity.
[2020-04-10 00:02] VITALS: BMI 48.2
[2020-04-10] MEDS ORDERED: HumaLOG 300 UNITS/3 ML VIAL SC PRN (04:16)
[2020-04-10] MEDS ORDERED: Dextrose 5% in Water 1,000 ML IV PRN (04:16)
[2020-04-10] MEDS ORDERED: Dextrose 50% Abboject 50 ML SYRINGE SLOW IVP PRN (04:16)
[2020-04-10] MEDS ORDERED: Nystatin Powder 15 GM BOT TOP PRN (04:17)
--- NOTE | 2020-04-10 05:21 | HP ---
REASON FOR ADMISSION: Redness and swelling of his left lower extremity. HISTORY OF PRESENT ILLNESS: This is a 69-year-old male patient, who has a history of lymphedema, presenting with redness involving his left extremity, redness extends from the foot up to the upper part of his left thigh with lots of blisters and oozing. He denies fevers, he denies chills. Denies any recent trauma or any laceration to that leg and he does have a history of bilateral lower extremity cellulitis for which he was admitted to our hospital two years ago. I did review his records and the patient was here in 2018 with altered mental status, thought to be secondary to alcohol. During the same year, he had another admission previous to that for cellulitis of his bilateral lower extremities, he remained hospitalized for approximately three days. His wound grew three organisms including Enterobacter and strep and gram-negative doyle. He was placed on Cipro and Flagyl and referred to a imaging nurse. PAST MEDICAL HISTORY: 1. Diabetes type 2. 2. DJD. 3. Anxiety. 4. Depression. 5. Neuropathy. 6. Insomnia. 7. Chronic lymphedema. ALLERGIES: NO NOTE OF ANY DRUG ALLERGIES. SOCIAL HISTORY: He does drink alcohol. He is a former smoker. FAMILY HISTORY: Father had cancer. REVIEW OF SYSTEMS: All systems reviewed except the above mentioned, found to be negative. PHYSICAL EXAMINATION: GENERAL: Awake, alert, oriented, does not appear in distress. VITAL SIGNS: His blood pressure is 143/76, heart rate of 97, temperature is 97.8, saturating 96% on room air. HEENT: Head is nontraumatic, normocephalic. Pupils equal, reactive. Extraocular movements are intact. Nonicteric sclerae. Well injected conjunctivae. Oral mucosa normal. Nasal mucosa normal. NECK: Supple. No adenopathy. No murmur. Thyroid is not palpable. Trachea is midline. No supraclavicular adenopathy. HEART: S1, S2 regular. No murmur. No gallops. No friction rubs. No displacement of PMI. LUNGS: Clear to auscultation bilaterally. No wheezes, rhonchi, no crackles. Bowel sounds are positive. Nontender abdomen. No hepatosplenomegaly. EXTREMITIES: The patient does have 4+ pitting edema in left lower extremity with evidence of erythema involving the whole leg up to the upper part of his left thigh with blisters filled with serous fluid with sometimes oozing from his leg and dripping of fluid. He does have 3+ pitting on his right lower extremity with no erythema. NEUROLOGIC: Cranial nerves 2-12 within normal limits. Normal motor function. Normal sensory function. Normal reflexes. LABORATORY DATA: Blood work shows WBC of 7.7, hemoglobin of 13.9, platelets of 298. Sodium 139, potassium 4.2, bicarb of 22, creatinine of 1.92. Doppler of lower extremity shows no evidence of DVT. CT of the left leg shows right lower extremity cellulitis without evidence of soft tissue abscess or osteomyelitis. ASSESSMENT AND PLAN: This is a 69-year-old male patient who is presenting with left lower extremity cellulitis. He does have history of lymphedema. ID: The patient will be started on cefepime and vancomycin. He did receive initial dose in the emergency room. I will consult Infectious Disease for further input. I will also consult the Wound Care Team and since he has an excessive amount of edema, we will change his p.o. Lasix to IV to help with that issue. Renal System and electrolytes: The patient has worsening of his chronic renal insufficiency. IV Lasix might make the creatinine a bit worse. We will continue to monitor his electrolytes on a daily basis. He is on Celebrex. We would like to hold that for kidney protection. For DVT prophylaxis, he will be on heparin subcutaneously. In regard to his diabetes, I will hold his metformin and glimepiride for now and we will have him on insulin sliding scale. He is on Neurontin, so we will continue that for his neuropathy and we will provide him with [place] for pain. I discussed with him the code status. He wishes to be a full code. Job ID: [id number]
[2020-04-10] MEDS: HYDROcodone/Acetaminophen 5/325 mg Tablet PO PRN ×2 (07:29→12:58)
[2020-04-10] MEDS ORDERED: Glimepiride 2 MG TAB PO SCH (08:00)
[2020-04-10] MEDS: Vancomycin 1.5 GRAM/300 ML BAG 1.5 GM in Premix Bag 1 BAG IVPB SCH ×2 (08:21→20:54)
[2020-04-10] MEDS: Gabapentin 300 MG CAP PO SCH ×2 (08:22→20:59)
[2020-04-10] MEDS: Heparin 5,000 UNITS/ML VIAL SC SCH ×3 (08:22→20:57)
[2020-04-10] MEDS: Furosemide 40 MG/4 ML VIAL SLOW IVP SCH (08:22)
[2020-04-10] MEDS ORDERED: FLU VACC QS2020-21(65YR UP)/PF 240 MCG/0.7 ML SYRINGE IM ONE (09:00)
[2020-04-10] MEDS ORDERED: Vancomycin 1 GM in Premix Bag 1 BAG IVPB SCH (09:00)
[2020-04-10 12:37] LABS: SARS-CoV-2 MS2 Positive; SARS-CoV-2 N Gene Negative; SARS-CoV-2 S Gene Negative; SARS-CoV-2 by NAA Not Detected (NotDetected); SARS-CoV-2 orf1ab Negative
--- NOTE | 2020-04-10 12:38 | PDOC.HOSPP ---
- Subjective Encounter Date: 04/10/20 Encounter Time: 12:37 Subjective: no fever, chills.warm red LLE. - Objective Vital Signs & Weight: Vital Signs (12 hours) Temp Pulse Resp BP Pulse Ox 04/10/20 11:38 98.2 F 83 16 129/65 95 04/10/20 08:12 97.7 F 87 20 146/73 H 95 04/10/20 03:52 98.4 F 87 18 171/80 H 99 Weight Admit Weight 346 lb 1.6 oz Weight 346 lb 1.6 oz I&O: 04/09/20 04/10/20 04/11/20 06:59 06:59 06:59 Intake Total 740 Output Total 300 Balance 440 Result Diagrams: 04/09/20 19:02 04/09/20 19:02 Additional Labs: Accuchecks 04/10/20 04/10/20 04/09/20 11:11 06:42 19:59 POC Glucose 115 H 93 99 Hospitalist ROS - Medication Medications: Active Medications Generic Name Dose Route Start Last Admin Trade Name Freq PRN Reason Stop Dose Admin Hydrocodone Bitart/Acetaminophen 1 tab 04/10/20 04:21 04/10/20 07:29 Hydrocodone/Acetaminophen 5/325 Mg Tablet PO 1 tab Q4H PRN Administration Moderate Pain (4-6) Furosemide 40 mg 04/10/20 09:00 04/10/20 08:22 Furosemide 40 Mg/4 Ml Vial SLOW IVP 40 mg DAILY MAYO Administration Gabapentin 600 mg 04/10/20 09:00 04/10/20 08:22 Gabapentin 300 Mg Cap PO 600 mg BID MAYO Administration Heparin Sodium (Porcine) 5,000 units 04/10/20 09:00 04/10/20 08:22 Heparin 5,000 Units/Ml Vial SC 5,000 units TID MAYO Administration Vancomycin HCl 1.5 gm/ Device 300 mls @ 200 mls/hr 04/10/20 08:00 04/10/20 08:21 IVPB 300 mls 0800,2000 MAYO Administration Nystatin 30 gm 04/10/20 04:17 04/10/20 05:35 Nystatin Powder 15 Gm Bot TOP 1 applic BID PRN Administration Topical Irritations - Exam General Appearance: awake alert Neck: no JVD Heart: RRR, no murmur Respiratory: CTAB Gastrointestinal: soft, non-tender, normal bowel sounds Extremities: 2+ LE edema Extremities - other findings: warm, red LLE Hosp A/P (1) Cellulitis and abscess of left leg Code(s): L03.116 - CELLULITIS OF LEFT LOWER LIMB; L02.416 - CUTANEOUS ABSCESS OF LEFT LOWER LIMB Status: Acute (2) DM (diabetes mellitus), type 2, uncontrolled Code(s): E11.65 - TYPE 2 DIABETES MELLITUS WITH HYPERGLYCEMIA Status: Acute (3) Obesity, morbid, BMI 40.0-49.9 Code(s): E66.01 - MORBID (SEVERE) OBESITY DUE TO EXCESS CALORIES Status: Acute (4) Hypertension Code(s): I10 - ESSENTIAL (PRIMARY) HYPERTENSION Status: Chronic Qualifiers: Hypertension type: essential hypertension Qualified Code(s): I10 - Essential (primary) hypertension - Plan cont current antibx pending [email or web address]
[2020-04-10] MEDS: Morphine ER 30 MG TAB PO SCH ×2 (14:28→20:57)
[2020-04-10] MEDS: Cefepime 2 GM in Sodium Chloride 0.9% 100 ML IVPB SCH (19:43)
[2020-04-10] MEDS: traZODone HCl 50 MG TAB PO SCH (20:57)
[2020-04-10] MEDS: Methyl Salicylate/Menthol 85 GM TUBE TOP PRN (21:00)
[2020-04-11 05:49] LABS: Anion Gap 17 mmol/L (10-20); BUN (Urea Nitrogen) 32 mg/dL (8.4-25.7); Calc. Creatinine Clearance 88 mL/min (70-130); Calcium 8.6 mg/dL (7.8-10.44); Carbon Dioxide 20 mmol/L (23-31); Chloride 104 mmol/L (98-107); Estimated GFR-MDRD 39; Glucose 85 mg/dL (80-115); Potassium 3.8 mmol/L (3.5-5.1); Sodium 137 mmol/L (136-145)
[2020-04-11 05:55] LABS: Hemoglobin 13.8 g/dL (14.0-18.0); Mean Corpuscular HGB CONC 33.6 g/dL (32.0-36.0); Mean Corpuscular Hemoglobin 32.1 pg (27.0-31.0); Mean Corpuscular Volume 95.5 fL (78.0-98.0); Mean Platelet Volume 7.5 fL (7.4-10.4); Platelet Count 366 thou/uL (130-400); RBC Distribution Width 12.6 % (11.5-14.5); Red Blood Cell (RBC) Count 4.31 mill/uL (4.70-6.10)
[2020-04-11 06:26] LABS: Band 10 % (5-11); Eosinophils 6 % (0-10); Lymphocytes 43 % (21-51); MDiff Complete? YES; Monocytes 9 % (0-10); Neutrophil 31 % (42-75); Reactive Lymphocytes 1 % (0-10)
--- NOTE | 2020-04-11 07:30 | CON ---
DATE OF CONSULTATION: HISTORY OF PRESENT ILLNESS: Luis Fox is a 69-year-old male with left lower leg cellulitis and venous stasis disease. He is on disability. He is morbidly obese, BMI 48, height 5 feet 11 inches, weight 346 pounds. He has metabolic syndrome, diabetes, and hypertension. He spends most of his day sedentary at home with his legs dependent. He does not use support stockings. He states that none will fit him. No doctor has prescribed for him support stockings. He should be prescribed [employer], custom fit, medium compression knee-high compression garments to wear daily when he is out of bed. Currently, with blisters on his lower extremity and edema and redness, he should be prescribed this for future use, but currently, he needs compression dressing when he is out of bed. He needs an Unna boot changed once or twice a week depending on his soilage. If he does not have an Unna boot, he will need a compression sequential wrap, Toy wrap, or other sequential devices per the hospital. After discharge, he will need outpatient wound care. He will need prescription for support stockings, custom fitted [employer] medium compression knee-high. I have talked to him about postural changes, avoiding prolonged dependency during the day. He should elevate his legs above his heart periodically during the day. He should walk when able. Walking helps the venous pump mechanism. The patient's walking is hindered due to hip and knee problems and obesity however. He should try to elevate his legs above his heart as much as possible. No surgical intervention is necessary. Wound Care has provided a dressing Vaseline gauze and a padded wrap without compression. We would recommend he have compression sequential wraps daily and avoid prolonged dependency in the hospital as well as intravenous antibiotics to resolve the cellulitis. ALLERGIES: NONE. SOCIAL HISTORY: Tobacco, none. Alcohol, none. MEDICATIONS: 1. Insulin. 2. Glimepiride. 3. Trazodone. 4. Metformin. 5. Gabapentin. 6. Celecoxib. In the hospital he is on vancomycin. PAST SURGICAL HISTORY: Noncontributory. PAST MEDICAL HISTORY: As noted above. PHYSICAL EXAMINATION: VITAL SIGNS: Height 5 feet 11 inches, weight 346 pounds, BMI 48, temperature 98.2 degrees, heart rate 83, blood pressure 129/65. LUNGS: Clear to auscultation. CARDIAC: Regular rhythm. ABDOMEN: Soft. EXTREMITIES: Palpable pulses. Venous stasis changes, knee to feet both legs. Left leg reveals blistering foot and leg cellulitis with venous stasis changes. I believe I can feel pulses, although the edema hinders exam. LABORATORY DATA: White count 7, hemoglobin 13. Basic metabolic profile, CKD. BUN 38, creatinine 1.92. Previous renal function has been near normal with past BUN and creatinine elevations as far back as 2018. ASSESSMENT AND PLAN: 1. Morbid obesity, metabolic syndrome, diabetes, hypertension. 2. Chronic venous stasis disease. The patient's ambulation is hindered. Venous pump mechanism will not be utilized adequately due to his limited ambulation ability. He should wear support stockings when out of bed and once the current cellulitis and edema have resolved, he should have these prescribed and acquiring [facility] [employer] [facility] via prescription. Medium compression knee-high support stockings to wear when out of bed. Until that time, he can wear one on the right leg until his left leg improves. Would use a sequential compression dressing such as an Unna boot, change once or twice a week. He can follow up with outpatient wound care to attend to this. There are other sequential compression devices available that Wound Care may recommend. I will see him as needed this hospitalization. No surgical intervention is planned. Job ID: [id number]
[2020-04-11 07:37] LABS: Vancomycin, Trough 25.2 ug/mL
[2020-04-11] MEDS: Gabapentin 300 MG CAP PO SCH ×2 (08:39→20:25)
[2020-04-11] MEDS: Morphine ER 30 MG TAB PO SCH ×3 (08:40→20:26)
[2020-04-11] MEDS: Vancomycin 1.5 GRAM/300 ML BAG 1.5 GM in Premix Bag 1 BAG IVPB SCH (08:42)
[2020-04-11] MEDS: Heparin 5,000 UNITS/ML VIAL SC SCH ×3 (08:42→20:25)
[2020-04-11] MEDS: Furosemide 40 MG/4 ML VIAL SLOW IVP SCH (08:42)
--- NOTE | 2020-04-11 11:22 | PDOC.HOSPP ---
- Subjective Encounter Date: 04/11/20 Encounter Time: 11:20 Subjective: no fever, chills. decreased discomfort left leg - Objective Vital Signs & Weight: Vital Signs (12 hours) Temp Pulse Resp BP Pulse Ox 04/11/20 07:14 98 F 75 18 149/75 H 96 04/11/20 03:58 98.4 F 78 18 108/71 98 04/10/20 23:29 97.7 F 82 18 117/71 98 Weight Admit Weight 346 lb 1.6 oz Weight 346 lb 1.6 oz I&O: 04/10/20 04/11/20 04/12/20 06:59 06:59 06:59 Intake Total 740 3070 Output Total 300 1050 Balance 440 2020 Result Diagrams: 04/11/20 05:00 04/11/20 05:00 Additional Labs: Accuchecks 04/10/20 04/10/20 04/09/20 20:57 15:32 19:59 POC Glucose 81 85 99 Hospitalist ROS - Medication Medications: Active Medications Generic Name Dose Route Start Last Admin Trade Name Freq PRN Reason Stop Dose Admin Gabapentin 600 mg 04/10/20 09:00 04/11/20 08:39 Gabapentin 300 Mg Cap PO 600 mg BID MAYO Administration Heparin Sodium (Porcine) 5,000 units 04/10/20 09:00 04/11/20 08:42 Heparin 5,000 Units/Ml Vial SC 5,000 units TID MAYO Administration Cefepime HCl 2 gm/ Sodium 100 mls @ 200 mls/hr 04/10/20 20:00 04/10/20 19:43 Chloride IVPB 100 mls 2000 MAYO Administration Menthol/Methyl Salicylate 1 gm 04/10/20 20:18 04/10/20 21:00 Methyl Salicylate/Menthol 85 Gm Tube TOP 1 gm QID PRN Administration pain Morphine Sulfate 30 mg 04/10/20 15:00 04/11/20 08:40 Morphine Er 30 Mg Tab PO 30 mg TID MAYO Administration Nystatin 30 gm 04/10/20 04:17 04/10/20 05:35 Nystatin Powder 15 Gm Bot TOP 1 applic BID PRN Administration Topical Irritations Trazodone HCl 100 mg 04/10/20 21:00 04/10/20 20:57 Trazodone Hcl 50 Mg Tab PO 100 mg HS MAYO Administration - Exam General Appearance: awake alert Neck: no JVD Heart: RRR, no murmur Respiratory: CTAB Gastrointestinal: soft, non-distended, normal bowel sounds Extremities - other findings: bilat lymphedema. decreased erythemia LLE Hosp A/P (1) Cellulitis and abscess of left leg Code(s): L03.116 - CELLULITIS OF LEFT LOWER LIMB; L02.416 - CUTANEOUS ABSCESS OF LEFT LOWER LIMB Status: Acute (2) DM (diabetes mellitus), type 2, uncontrolled Code(s): E11.65 - TYPE 2 DIABETES MELLITUS WITH HYPERGLYCEMIA Status: Acute (3) Obesity, morbid, BMI 40.0-49.9 Code(s): E66.01 - MORBID (SEVERE) OBESITY DUE TO EXCESS CALORIES Status: Acute (4) Hypertension Code(s): I10 - ESSENTIAL (PRIMARY) HYPERTENSION Status: Chronic Qualifiers: Hypertension type: essential hypertension Qualified Code(s): I10 - Essential (primary) hypertension - Plan cont current antibx pending I accu/ss/ home meds await blood C&S cont wound care consider deescalating antibx to cephtriaxone tomorrow if C&s neg
[2020-04-11] MEDS ORDERED: Polyethylene Glycol 3350 17 GM Packet PO PRN (16:42)
[2020-04-11] MEDS: Cefepime 2 GM in Sodium Chloride 0.9% 100 ML IVPB SCH (19:47)
[2020-04-11] MEDS: metFORMIN 500 MG TAB PO SCH (20:25)
[2020-04-11] MEDS: traZODone HCl 50 MG TAB PO SCH (20:25)
[2020-04-11] MEDS: Vancomycin HCl 1.25 GM in Sodium Chloride 0.9% 250 ML 250 ML IVPB SCH (20:26)
[2020-04-12] MEDS: Morphine ER 30 MG TAB PO SCH ×3 (08:36→20:24)
[2020-04-12] MEDS: Gabapentin 300 MG CAP PO SCH ×2 (08:36→19:50)
[2020-04-12] MEDS: Furosemide 40 MG TAB PO SCH (08:36)
[2020-04-12] MEDS: metFORMIN 500 MG TAB PO SCH ×2 (08:36→19:50)
[2020-04-12] MEDS: Heparin 5,000 UNITS/ML VIAL SC SCH ×3 (08:38→19:50)
[2020-04-12] MEDS: Insulin Glargine 25 UNITS in Pre-Filled Syringe 1 EACH SC SCH (08:38)
[2020-04-12] MEDS: Vancomycin HCl 1.25 GM in Sodium Chloride 0.9% 250 ML 250 ML IVPB SCH ×2 (10:59→22:55)
--- NOTE | 2020-04-12 12:07 | PDOC.HOSPP ---
- Subjective Encounter Date: 04/12/20 Encounter Time: 12:07 Subjective: no fever , chills - Objective Vital Signs & Weight: Vital Signs (12 hours) Temp Pulse Resp BP BP Pulse Ox 04/12/20 07:42 97.9 F 88 18 129/75 98 04/12/20 04:09 97.9 F 82 18 96/60 99 04/12/20 00:13 98.4 F 84 18 114/69 95 Weight Admit Weight 346 lb 1.6 oz Weight 346 lb 1.6 oz I&O: 04/11/20 04/12/20 04/13/20 06:59 06:59 06:59 Intake Total 3070 4190 Output Total 1050 250 Balance 2020 3940 Result Diagrams: 04/11/20 05:00 04/11/20 05:00 Additional Labs: Accuchecks 04/12/20 04/12/20 04/11/20 11:19 05:47 20:59 POC Glucose 134 H 117 H 110 H 04/11/20 04/11/20 04/11/20 16:06 12:20 05:35 POC Glucose 99 134 H 89 Hospitalist ROS - Medication Medications: Active Medications Generic Name Dose Route Start Last Admin Trade Name Freq PRN Reason Stop Dose Admin Furosemide 40 mg 04/12/20 09:00 04/12/20 08:36 Furosemide 40 Mg Tab PO 40 mg DAILY MAYO Administration Gabapentin 600 mg 04/10/20 09:00 04/12/20 08:36 Gabapentin 300 Mg Cap PO 600 mg BID MAYO Administration Heparin Sodium (Porcine) 5,000 units 04/10/20 09:00 04/12/20 08:38 Heparin 5,000 Units/Ml Vial SC 5,000 units TID MAYO Administration Vancomycin HCl 1.25 gm/ Sodium 250 mls @ 166.667 mls/hr 04/11/20 20:00 04/12/20 10:59 Chloride IVPB 250 mls 0800,1999 MAYO Administration Insulin Glargine 25 units/ 0.25 mls @ 0 mls/hr 04/12/20 09:00 04/12/20 08:38 Miscellaneous Medication SC 0.25 mls QAM MAYO Administration As Directed Menthol/Methyl Salicylate 1 gm 04/10/20 20:18 04/10/20 21:00 Methyl Salicylate/Menthol 85 Gm Tube TOP 1 gm QID PRN Administration pain Metformin HCl 500 mg 04/11/20 21:00 04/12/20 08:36 Metformin 500 Mg Tab PO 500 mg BID MAYO Administration Morphine Sulfate 30 mg 04/10/20 15:00 04/12/20 08:36 Morphine Er 30 Mg Tab PO 30 mg TID MAYO Administration Nystatin 30 gm 04/10/20 04:17 04/10/20 05:35 Nystatin Powder 15 Gm Bot TOP 1 applic BID PRN Administration Topical Irritations Trazodone HCl 100 mg 04/10/20 21:00 04/11/20 20:25 Trazodone Hcl 50 Mg Tab PO 100 mg HS MAYO Administration - Exam General Appearance: awake alert Neck: no JVD Heart: RRR, no murmur Respiratory: CTAB Gastrointestinal: soft, normal bowel sounds Extremities - other findings: lymphedema, L leg bandaged Hosp A/P (1) Cellulitis and abscess of left leg Code(s): L03.116 - CELLULITIS OF LEFT LOWER LIMB; L02.416 - CUTANEOUS ABSCESS OF LEFT LOWER LIMB Status: Acute (2) DM (diabetes mellitus), type 2, uncontrolled Code(s): E11.65 - TYPE 2 DIABETES MELLITUS WITH HYPERGLYCEMIA Status: Acute (3) Obesity, morbid, BMI 40.0-49.9 Code(s): E66.01 - MORBID (SEVERE) OBESITY DUE TO EXCESS CALORIES Status: Acute (4) Hypertension Code(s): I10 - ESSENTIAL (PRIMARY) HYPERTENSION Status: Chronic Qualifiers: Hypertension type: essential hypertension Qualified Code(s): I10 - Essential (primary) hypertension - Plan I accu/ss/ home meds blood C&S, neg 48 hrs cont wound care deescalate antibx to cephtriaxone ID cosult
[2020-04-12] MEDS: cefTRIAXone\\ROCEPHIN 2 GM in Sodium Chloride 0.9% 100 ML IVPB SCH (13:25)
[2020-04-12] MEDS: Acetaminophen 325 MG TAB PO PRN (19:49)
[2020-04-12] MEDS: traZODone HCl 50 MG TAB PO SCH (19:50)
[2020-04-13] MEDS: metFORMIN 500 MG TAB PO SCH ×2 (08:36→20:10)
[2020-04-13] MEDS: Gabapentin 300 MG CAP PO SCH ×2 (08:36→20:10)
[2020-04-13] MEDS: Furosemide 40 MG TAB PO SCH (08:36)
[2020-04-13] MEDS: Heparin 5,000 UNITS/ML VIAL SC SCH ×3 (08:36→20:09)
[2020-04-13] MEDS: Insulin Glargine 25 UNITS in Pre-Filled Syringe 1 EACH SC SCH (08:36)
[2020-04-13] MEDS: Morphine ER 30 MG TAB PO SCH ×3 (08:37→20:09)
[2020-04-13 10:24] LABS: Vancomycin, Trough 27.1 ug/mL
[2020-04-13] MEDS: Vancomycin HCl 1.25 GM in Sodium Chloride 0.9% 250 ML 250 ML IVPB SCH (10:56)
--- NOTE | 2020-04-13 11:37 | PDOC.HOSPP ---
- Subjective Encounter Date: 04/13/20 Encounter Time: 11:29 Subjective: desires REHab post hospital stay. Cont to compain of difficulty walking due to foot infection - Objective Vital Signs & Weight: Vital Signs (12 hours) Temp Pulse Resp BP Pulse Ox 04/13/20 07:55 98.5 F 96 16 111/57 L 98 04/12/20 23:44 98.2 F 75 18 107/55 L 96 Weight Admit Weight 346 lb 1.6 oz Weight 346 lb 1.6 oz I&O: 04/12/20 04/13/20 04/14/20 06:59 06:59 06:59 Intake Total 4190 2080 Output Total 250 250 Balance 3940 1830 Result Diagrams: 04/11/20 05:00 04/11/20 05:00 Additional Labs: Accuchecks 04/13/20 04/12/20 05:48 15:41 POC Glucose 125 H 97 Hospitalist ROS - Medication Medications: Active Medications Generic Name Dose Route Start Last Admin Trade Name Freq PRN Reason Stop Dose Admin Acetaminophen 650 mg 04/10/20 04:21 04/12/20 19:49 Acetaminophen 325 Mg Tab PO 650 mg Q4H PRN Administration Headache/Fever/Mild Pain (1-3) Furosemide 40 mg 04/12/20 09:00 04/13/20 08:36 Furosemide 40 Mg Tab PO 40 mg DAILY MAYO Administration Gabapentin 600 mg 04/10/20 09:00 04/13/20 08:36 Gabapentin 300 Mg Cap PO 600 mg BID MAYO Administration Heparin Sodium (Porcine) 5,000 units 04/10/20 09:00 04/13/20 08:36 Heparin 5,000 Units/Ml Vial SC 5,000 units TID MAYO Administration Insulin Glargine 25 units/ 0.25 mls @ 0 mls/hr 04/12/20 09:00 04/13/20 08:36 Miscellaneous Medication SC 0.25 mls QAM MAYO Administration As Directed Ceftriaxone Sodium 2 gm/ 100 mls @ 200 mls/hr 04/12/20 13:00 04/12/20 13:25 Sodium Chloride IVPB 100 mls 1300 MAYO Administration Menthol/Methyl Salicylate 1 gm 04/10/20 20:18 04/10/20 21:00 Methyl Salicylate/Menthol 85 Gm Tube TOP 1 gm QID PRN Administration pain Metformin HCl 500 mg 04/11/20 21:00 04/13/20 08:36 Metformin 500 Mg Tab PO 500 mg BID MAYO Administration Morphine Sulfate 30 mg 04/10/20 15:00 04/13/20 08:37 Morphine Er 30 Mg Tab PO 30 mg TID MAYO Administration Nystatin 30 gm 04/10/20 04:17 04/10/20 05:35 Nystatin Powder 15 Gm Bot TOP 1 applic BID PRN Administration Topical Irritations Trazodone HCl 100 mg 04/10/20 21:00 04/12/20 19:50 Trazodone Hcl 50 Mg Tab PO 100 mg HS MAYO Administration - Exam General Appearance: awake alert Neck: no JVD Heart: RRR, no murmur Respiratory: CTAB Gastrointestinal: soft, normal bowel sounds Extremities: 2+ LE edema Extremities - other findings: bandaged LL extremity Hosp A/P (1) Cellulitis and abscess of left leg Code(s): L03.116 - CELLULITIS OF LEFT LOWER LIMB; L02.416 - CUTANEOUS ABSCESS OF LEFT LOWER LIMB Status: Acute (2) DM (diabetes mellitus), type 2, uncontrolled Code(s): E11.65 - TYPE 2 DIABETES MELLITUS WITH HYPERGLYCEMIA Status: Acute (3) Obesity, morbid, BMI 40.0-49.9 Code(s): E66.01 - MORBID (SEVERE) OBESITY DUE TO EXCESS CALORIES Status: Acute (4) Hypertension Code(s): I10 - ESSENTIAL (PRIMARY) HYPERTENSION Status: Chronic Qualifiers: Hypertension type: essential hypertension Qualified Code(s): I10 - Essential (primary) hypertension - Plan ICM for REHAB/ accu/ss/ home meds PT/OT cont wound care deescalate antibx to cephtriaxone
--- NOTE | 2020-04-13 11:42 | PQF ---
CLINICAL DOCUMENTATION CLARIFICATION FORM: Dear Dr. [facility] Date: 04/13/2020 Please exercise your independent, professional judgment in responding to the clarification form. Clinical indicators are provided on the bottom of this form for your review. Please check appropriate box(s): [ ] Sepsis due to: [ ] Cellulitis related to Diabetes Mellitus [ ] Cellulitis not related to Diabetes Mellitus [ x] No Sepsis, localized infection only due to: [ x ] Cellulitis related to Diabetes Mellitus [ ] Cellulitis not related to Diabetes Mellitus [ ] Other diagnosis [ ] Unable to determine For continuity of documentation, please document condition throughout progress notes and discharge summary. Thank You. CLINICAL INDICATORS - SIGNS / SYMPTOMS / LABS / RESULTS AND LOCATION IN EMR *ED 04/09: * Vital Signs: Pulse 92-101 RR 16-20 O2 Sat: 95-97% Room Air Temp (max): 99.8 BP 161/96 - 181/90 * Left lower extremity cellulitis * Sepsis *H&P 04/09 ([facility]): * He denies fevers, he denies chills. * His blood pressure is 143/76, heart rate of 97, temperature is 97.8, saturating 96% on room air. * The patient has worsening of his chronic renal insufficiency. *LAB (EMR): WBC Neutrophils % Band Neuts % Lactic Acid 04/09 7.7 65.6 1.2 04/11 7.0 10 *PN 04/10 ([facility]): * No fever, chills. * DM (diabetes mellitus), type 2, uncontrolled *PN 04/12 ([facility]): Blood C&S, neg 48 hrs *Microbiology (EMR): * Collected 04/09/20 Source Leg ... Bacterial Culture - Final * Pseudomonas aeruginosa * Pseudomonas mendocina * Enterococcus faecalis RISK FACTORS / RESULTS AND LOCATION IN EMR *H&P 04/09 ([facility]): * Diabetes type 2 * Left lower extremity cellulitis *PN 04/10 ([facility]): DM (diabetes mellitus), type 2, uncontrolled TREATMENTS / RESULTS AND LOCATION IN EMR *ED 04/09: Flagyl IV, Vancomycin IV, Cefepime NS 1L IV *H&P 04/09 ([facility]): The patient will be started on cefepime and vancomycin. I will consult Infectious Disease for further input. Will also consult wound care. I will hold his metformin and glimepiride for now and we will have him on insulin sliding scale. *Orders (EMR): Consult: Wound Care Eval/Treat Routine 04/10, Diet: Consistent Carb 04/12, Educate: Diabetes 04/10, Glucose, Bedside (AC/HS) 04/10 *Microbiology 04/09 (EMR): Blood Culture (x2), Bacterial Culture (Source Leg) *Lab (EMR): CBC 04/09, 04/11, Lactic Acid 04/09 Thank you, Lorna CDS/Ferris Wheel Attendant Signature: Lorna Hung RN, CDS Phone #: [phone] [email or web address] This is a permanent part of the Medical Record [facility]
[2020-04-13] MEDS: cefTRIAXone\\ROCEPHIN 2 GM in Sodium Chloride 0.9% 100 ML IVPB SCH (13:25)
[2020-04-13] MEDS: traZODone HCl 50 MG TAB PO SCH (20:09)
[2020-04-13 23:00] LABS: Vancomycin, Random 28.3 ug/mL (See Comment)
[2020-04-13] MEDS ORDERED: Vancomycin 1 GM in Premix Bag 1 BAG IVPB SCH (23:00)
[2020-04-14] MEDS: Insulin Glargine 25 UNITS in Pre-Filled Syringe 1 EACH SC SCH (08:47)
[2020-04-14] MEDS: Gabapentin 300 MG CAP PO SCH ×2 (08:47→21:20)
[2020-04-14] MEDS: Morphine ER 30 MG TAB PO SCH ×3 (08:48→21:19)
[2020-04-14] MEDS: Furosemide 40 MG TAB PO SCH (08:48)
[2020-04-14] MEDS: Heparin 5,000 UNITS/ML VIAL SC SCH ×3 (08:48→21:22)
[2020-04-14] MEDS: metFORMIN 500 MG TAB PO SCH ×2 (08:48→21:22)
[2020-04-14] MEDS: Acetaminophen 325 MG TAB PO PRN (11:08)
--- NOTE | 2020-04-14 11:15 | PDOC.HOSPP ---
- Subjective Encounter Date: 04/14/20 Encounter Time: 11:14 Subjective: pain still present in L foot. States he cannot keep it elevated as directed, doesnt like it - Objective Vital Signs & Weight: Vital Signs (12 hours) Temp Pulse Resp BP Pulse Ox 04/14/20 11:02 98.3 F 97 18 123/74 98 04/14/20 07:56 101.1 F H 95 16 121/70 96 04/14/20 00:50 98.1 F 96 20 134/68 98 Weight Admit Weight 346 lb 1.6 oz Weight 346 lb 1.6 oz I&O: 04/13/20 04/14/20 04/15/20 06:59 06:59 06:59 Intake Total 2080 1230 Output Total 250 Balance 1830 1230 Result Diagrams: 04/11/20 05:00 04/13/20 22:12 Additional Labs: Accuchecks 04/14/20 04/14/20 04/13/20 11:00 05:16 20:55 POC Glucose 139 H 119 H 123 H 04/13/20 04/13/20 04/12/20 15:49 12:12 20:47 POC Glucose 117 H 139 H 124 H Hospitalist ROS - Medication Medications: Active Medications Generic Name Dose Route Start Last Admin Trade Name Freq PRN Reason Stop Dose Admin Acetaminophen 650 mg 04/10/20 04:21 04/14/20 11:08 Acetaminophen 325 Mg Tab PO 650 mg Q4H PRN Administration Headache/Fever/Mild Pain (1-3) Furosemide 40 mg 04/12/20 09:00 04/14/20 08:48 Furosemide 40 Mg Tab PO 40 mg DAILY MAYO Administration Gabapentin 600 mg 04/10/20 09:00 04/14/20 08:47 Gabapentin 300 Mg Cap PO 600 mg BID MAYO Administration Heparin Sodium (Porcine) 5,000 units 04/10/20 09:00 04/14/20 08:48 Heparin 5,000 Units/Ml Vial SC 5,000 units TID MAYO Administration Insulin Glargine 25 units/ 0.25 mls @ 0 mls/hr 04/12/20 09:00 04/14/20 08:47 Miscellaneous Medication SC 0.25 mls QAM MAYO Administration As Directed Ceftriaxone Sodium 2 gm/ 100 mls @ 200 mls/hr 04/12/20 13:00 04/13/20 13:25 Sodium Chloride IVPB 100 mls 1300 MAYO Administration Vancomycin HCl 2 gm/ Sodium 500 mls @ 250 mls/hr 04/14/20 11:00 04/14/20 11:07 Chloride IVPB 500 mls 1100 MAYO Administration Menthol/Methyl Salicylate 1 gm 04/10/20 20:18 04/10/20 21:00 Methyl Salicylate/Menthol 85 Gm Tube TOP 1 gm QID PRN Administration pain Metformin HCl 500 mg 04/11/20 21:00 04/14/20 08:48 Metformin 500 Mg Tab PO 500 mg BID MAYO Administration Morphine Sulfate 30 mg 04/10/20 15:00 04/14/20 08:48 Morphine Er 30 Mg Tab PO 30 mg TID MAYO Administration Nystatin 30 gm 04/10/20 04:17 04/10/20 05:35 Nystatin Powder 15 Gm Bot TOP 1 applic BID PRN Administration Topical Irritations Trazodone HCl 100 mg 04/10/20 21:00 04/13/20 20:09 Trazodone Hcl 50 Mg Tab PO 100 mg HS MAYO Administration - Exam General Appearance: awake alert Neck: no JVD Heart: RRR, no murmur Respiratory: CTAB Gastrointestinal: soft, normal bowel sounds Extremities: 2+ LE edema Extremities - other findings: bandaged LL leg, no drainage etc Hosp A/P (1) Cellulitis and abscess of left leg Code(s): L03.116 - CELLULITIS OF LEFT LOWER LIMB; L02.416 - CUTANEOUS ABSCESS OF LEFT LOWER LIMB Status: Acute (2) DM (diabetes mellitus), type 2, uncontrolled Code(s): E11.65 - TYPE 2 DIABETES MELLITUS WITH HYPERGLYCEMIA Status: Acute (3) Obesity, morbid, BMI 40.0-49.9 Code(s): E66.01 - MORBID (SEVERE) OBESITY DUE TO EXCESS CALORIES Status: Acute (4) Hypertension Code(s): I10 - ESSENTIAL (PRIMARY) HYPERTENSION Status: Chronic Qualifiers: Hypertension type: essential hypertension Qualified Code(s): I10 - Essenti al (primary) hypertension - Plan CM for REHAB/SNF accu/ss/ home meds PT/OT cont wound care Cont iv antibx until 04/17, then transition to po cephalexin for 4-6 weeks
[2020-04-14 12:44] LABS: Anion Gap 12 mmol/L (10-20); BUN (Urea Nitrogen) 17 mg/dL (8.4-25.7); Calc. Creatinine Clearance 100 mL/min (70-130); Calcium 8.7 mg/dL (7.8-10.44); Carbon Dioxide 26 mmol/L (23-31); Chloride 104 mmol/L (98-107); Estimated GFR-MDRD 45; Glucose 138 mg/dL (80-115); Sodium 138 mmol/L (136-145)
[2020-04-14] MEDS: cefTRIAXone\\ROCEPHIN 2 GM in Sodium Chloride 0.9% 100 ML IVPB SCH (14:43)
[2020-04-14] MEDS: Cefepime 2 GM in Sodium Chloride 0.9% 100 ML IVPB SCH ×2 (15:34)
[2020-04-15] MEDS: Cefepime 2 GM in Sodium Chloride 0.9% 100 ML IVPB SCH ×2 (02:42→15:04)
[2020-04-15] MEDS: Acetaminophen 325 MG TAB PO PRN (05:43)
[2020-04-15] MEDS: traZODone HCl 50 MG TAB PO SCH ×2 (06:31→20:07)
[2020-04-15] MEDS: Furosemide 40 MG TAB PO SCH (08:37)
[2020-04-15] MEDS: Gabapentin 300 MG CAP PO SCH ×2 (08:37→20:08)
[2020-04-15] MEDS: Heparin 5,000 UNITS/ML VIAL SC SCH ×3 (08:37→20:08)
[2020-04-15] MEDS: Morphine ER 30 MG TAB PO SCH ×3 (08:38→20:07)
[2020-04-15] MEDS: metFORMIN 500 MG TAB PO SCH ×2 (08:38→20:07)
[2020-04-15] MEDS: Insulin Glargine 25 UNITS in Pre-Filled Syringe 1 EACH SC SCH (09:11)
[2020-04-15] MEDS: Loperamide HCl 2 MG CAP PO PRN (15:03)
--- NOTE | 2020-04-15 15:58 | PDOC.HOSPP ---
- Subjective Encounter Date: 04/15/20 - Objective Vital Signs & Weight: Vital Signs (12 hours) Temp Pulse Resp BP BP Pulse Ox 04/15/20 12:45 98.0 F 84 18 111/70 94 L 04/15/20 12:00 18 04/15/20 08:00 98.0 F 83 16 111/70 96 04/15/20 07:26 98.0 F 83 16 111/70 96 Weight Admit Weight 346 lb 1.6 oz Weight 346 lb 1.6 oz I&O: 04/14/20 04/15/20 04/16/20 06:59 06:59 06:59 Intake Total 1230 700 Balance 1230 700 Result Diagrams: 04/11/20 05:00 04/14/20 11:37 Additional Labs: Accuchecks 04/15/20 04/15/20 04/14/20 15:42 05:35 21:16 POC Glucose 130 H 112 H 63 L 04/14/20 16:15 POC Glucose 115 H Hospitalist ROS - Medication Medications: Active Medications Generic Name Dose Route Start Last Admin Trade Name Freq PRN Reason Stop Dose Admin Acetaminophen 650 mg 04/10/20 04:21 04/15/20 05:43 Acetaminophen 325 Mg Tab PO 650 mg Q4H PRN Administration Headache/Fever/Mild Pain (1-3) Furosemide 40 mg 04/12/20 09:00 04/15/20 08:37 Furosemide 40 Mg Tab PO 40 mg DAILY MAYO Administration Gabapentin 600 mg 04/10/20 09:00 04/15/20 08:37 Gabapentin 300 Mg Cap PO 600 mg BID MAYO Administration Heparin Sodium (Porcine) 5,000 units 04/10/20 09:00 04/15/20 15:03 Heparin 5,000 Units/Ml Vial SC 5,000 units TID MAYO Administration Insulin Glargine 25 units/ 0.25 mls @ 0 mls/hr 04/12/20 09:00 04/15/20 09:11 Miscellaneous Medication SC 0.25 mls QAM MAYO Administration As Directed Cefepime HCl 2 gm/ Sodium 100 mls @ 200 mls/hr 04/14/20 15:00 04/15/20 15:04 Chloride IVPB 100 mls 0300,1500 MAYO Administration Loperamide HCl 2 mg 04/15/20 14:47 04/15/20 15:03 Loperamide Hcl 2 Mg Cap PO 2 mg QIDPRN PRN Administration Diarrhea/Loose Stools Menthol/Methyl Salicylate 1 gm 04/10/20 20:18 04/10/20 21:00 Methyl Salicylate/Menthol 85 Gm Tube TOP 1 gm QID PRN Administration pain Metformin HCl 500 mg 04/11/20 21:00 04/15/20 08:38 Metformin 500 Mg Tab PO 500 mg BID MAYO Administration Morphine Sulfate 30 mg 04/10/20 15:00 04/15/20 15:03 Morphine Er 30 Mg Tab PO 30 mg TID MAYO Administration Nystatin 30 gm 04/10/20 04:17 04/10/20 05:35 Nystatin Powder 15 Gm Bot TOP 1 applic BID PRN Administration Topical Irritations Trazodone HCl 100 mg 04/10/20 21:00 04/15/20 06:31 Trazodone Hcl 50 Mg Tab PO Not Given HS MAYO - Exam General Appearance: awake alert ENT: normocephalic atraumatic Neck: supple, no JVD Heart: RRR Respiratory: normal chest expansion, no tachypnea Gastrointestinal: soft Extremities: no cyanosis, no clubbing Neurological: cranial nerve grossly intact Hosp A/P (1) Cellulitis and abscess of left leg Code(s): L03.116 - CELLULITIS OF LEFT LOWER LIMB; L02.416 - CUTANEOUS ABSCESS OF LEFT LOWER LIMB Status: Acute (2) DM (diabetes mellitus), type 2, uncontrolled Code(s): E11.65 - TYPE 2 DIABETES MELLITUS WITH HYPERGLYCEMIA Status: Acute (3) Obesity, morbid, BMI 40.0-49.9 Code(s): E66.01 - MORBID (SEVERE) OBESITY DUE TO EXCESS CALORIES Status: Acute (4) Venous stasis dermatitis of both lower extremities Code(s): I87.2 - VENOUS INSUFFICIENCY (CHRONIC) (PERIPHERAL) Status: Acute (5) Hypertension Code(s): I10 - ESSENTIAL (PRIMARY) HYPERTENSION Status: Chronic Qualifiers: Hypertension type: essential hypertension Qualified Code(s): I10 - Essential (primary) hypertension - Plan Wound culture is positive for multiple bacteria. Based on sensitivities, outpatient regimen could be ciprofloxacin plus doxycycline. ID on the case. Awaiting SNF placement. Continue wound care.
[2020-04-16] MEDS: Cefepime 2 GM in Sodium Chloride 0.9% 100 ML IVPB SCH ×2 (02:13→15:26)
[2020-04-16] MEDS: Acetaminophen 325 MG TAB PO PRN ×2 (05:31→20:32)
[2020-04-16] MEDS: Morphine ER 30 MG TAB PO SCH ×3 (07:48→20:33)
[2020-04-16] MEDS: Gabapentin 300 MG CAP PO SCH ×2 (07:49→20:32)
[2020-04-16] MEDS: metFORMIN 500 MG TAB PO SCH ×2 (07:50→20:33)
[2020-04-16] MEDS: Heparin 5,000 UNITS/ML VIAL SC SCH ×3 (07:50→20:33)
[2020-04-16] MEDS: Furosemide 40 MG TAB PO SCH (07:50)
[2020-04-16] MEDS: Insulin Glargine 25 UNITS in Pre-Filled Syringe 1 EACH SC SCH (08:56)
[2020-04-16] MEDS: Loperamide HCl 2 MG CAP PO PRN (10:08)
[2020-04-16 10:10] LABS: #Basophils 0.1 thou/uL (0.0-0.2); #Eosinphils 0.2 thou/uL (0.0-0.7); #Lymphocytes 1.3 thou/uL (1.20-3.40); #Monocytes 0.5 thou/uL (0.11-0.59); #Neutrophils 4.3 thou/uL (1.40-6.50); %Basophils 0.8 % (0.0-1.0); %Eosinophils 3.6 % (0.0-10.0); %Lymphocytes 21.1 % (21.0-51.0); %Neutrophils 67.4 % (42.0-75.0); Hemoglobin 12.6 g/dL (14.0-18.0); Mean Corpuscular HGB CONC 33.3 g/dL (32.0-36.0); Mean Corpuscular Hemoglobin 31.5 pg (27.0-31.0); Mean Corpuscular Volume 94.6 fL (78.0-98.0); Mean Platelet Volume 7.4 fL (7.4-10.4); Platelet Count 376 thou/uL (130-400); RBC Distribution Width 12.3 % (11.5-14.5); Red Blood Cell (RBC) Count 4.01 mill/uL (4.70-6.10); White Blood Cell (WBC) Count 6.4 thou/uL (4.8-10.8)
[2020-04-16 10:24] LABS: Anion Gap 13 mmol/L (10-20); BUN (Urea Nitrogen) 15 mg/dL (8.4-25.7); Calc. Creatinine Clearance 95 mL/min (70-130); Calcium 8.7 mg/dL (7.8-10.44); Carbon Dioxide 26 mmol/L (23-31); Chloride 103 mmol/L (98-107); Estimated GFR-MDRD 43; Glucose 172 mg/dL (80-115); Potassium 3.9 mmol/L (3.5-5.1); Sodium 138 mmol/L (136-145)
--- NOTE | 2020-04-16 11:06 | CON ---
DATE OF CONSULTATION: 04/14/2020 REASON FOR CONSULTATION: Cellulitis, lower extremity. HISTORY OF PRESENT ILLNESS: A 69-year-old with history of obesity, prior cellulitis in lower extremities, chronic venous stasis, hypertension, as well as alcohol dependency syndrome and type 2 diabetes, who developed inflammatory changes in the lower extremities. The left lower extremity is the one that is predominantly affected by the inflammatory process, so he was admitted on the 8th and has been on Rocephin and vancomycin since and has had a fever today, so I was asked to see the patient. Denies any headaches. No visual symptoms, sore throat, odynophagia, and dysphagia. No cough or sputum production. No chest pain. No back pain. No abdominal pain or diarrhea. Voiding without difficulty. The left leg is wrapped with compressive dressing. No neurological symptoms. PAST MEDICAL HISTORY: Obesity, type 2 diabetes, hypertension, CKD, alcohol dependency syndrome, chronic osteoarthritis, venous insufficiency, and prior episodes of cellulitis. SOCIAL HISTORY: Drinks daily, it is not clear what his extent of alcohol use is anymore. Here, it states a glass of wine a day, elsewhere it shows less than 5 drinks per day. He has one admission with intoxication by alcoholic beverage. Never smoker. He lives in [place]. ALLERGIES: NONE. FAMILY HISTORY: Noncontributory. CURRENT MEDICATIONS: 1. Ceftriaxone. 2. Lasix. 3. Neurontin. 4. Insulin. 5. Mycostatin. 6. Trazodone. 7. Vancomycin. PHYSICAL EXAMINATION: VITAL SIGNS: T-max 101 just recently, BP 120/74, heart rate 97, respirations 18, and O2 saturation 98. SKIN: Shows the confluent erythema with blisters in the left lower extremity, evidence of dermatosclerosis. Onychodystrophy versus onychomycosis. Circumferential erythema in the left leg extending from the ankle to the knee. Left malleolus with ruptured blister and blister in the fifth toe. No lymphadenopathy. HEENT: Ocular movements conjugate. Oral cavity with still few teeth remaining in place. Oral mucosa normal. NECK: Supple. No jugular vein distention. LUNGS: Symmetric. Clear breath sounds. HEART: S1 and S2. Regular rate. No S3 or S4. ABDOMEN: Soft, not distended or tender. No ascites. No bladder distention. Quite prominent abdominal panniculus. : No genital swelling. EXTREMITIES: Pulses are 1+ in dorsalis pedis. Nonpitting edema due to lymphedema in lower extremities. Cognitive function appears to be intact. LABORATORY DATA: White cell count is 7.0, hemoglobin 13, platelets 366, 31% neutrophils, 10% bands, and 42% lymphocytes. Creatinine is up to 1.53, baseline is 1.0 and GFR 45. The liver function was normal. Albumin 2.6. Prior imaging includes various studies including venous ultrasound, which showed no evidence of deep vein thrombosis. ASSESSMENT: Type 2 diabetes, hypertension, chronic kidney disease, recurrent cellulitis, venous stasis, and now the patient has this cellulitis with blistering. The culture from the blister showed P aeruginosa, P mendocina and Enterococcus faecalis. DISCUSSION: The possibility of gram-negative doyle cellulitis is significant. He may have chronic liver disease and we will go ahead and switch him to cefepime from the current antimicrobials and follow clinical course. An alternate option would be meropenem but will order cefepime instead. Once he gets better, then we can transition to oral quinolone for discharge planning. After that, I would advise suppressive therapy for secondary prophylaxis with penicillin VK 250 b.i.d. and compression stockings. Those two interventions are remarkably effective in preventing relapse up to a year after the initial episode. Job ID: [id number] SONIDO
--- NOTE | 2020-04-16 13:26 | PDOC.HOSPP ---
- Subjective Encounter Date: 04/16/20 - Objective Vital Signs & Weight: Vital Signs (12 hours) Temp Pulse Resp BP BP Pulse Ox 04/16/20 11:00 97.7 F 88 18 129/76 98 04/16/20 07:35 99.4 F 93 18 96 04/16/20 04:50 99.4 F 87 18 170/83 H 96 Weight Admit Weight 346 lb 1.6 oz Weight 346 lb 1.6 oz I&O: 04/15/20 04/16/20 04/17/20 06:59 06:59 06:59 Intake Total 700 450 Balance 700 450 Result Diagrams: 04/16/20 09:54 04/16/20 09:54 Additional Labs: Accuchecks 04/16/20 04/16/20 04/15/20 11:03 05:32 15:42 POC Glucose 121 H 99 130 H Hospitalist ROS - Medication Medications: Active Medications Generic Name Dose Route Start Last Admin Trade Name Freq PRN Reason Stop Dose Admin Acetaminophen 650 mg 04/10/20 04:21 04/16/20 05:31 Acetaminophen 325 Mg Tab PO 650 mg Q4H PRN Administration Headache/Fever/Mild Pain (1-3) Furosemide 40 mg 04/12/20 09:00 04/16/20 07:50 Furosemide 40 Mg Tab PO 40 mg DAILY MAYO Administration Gabapentin 600 mg 04/10/20 09:00 04/16/20 07:49 Gabapentin 300 Mg Cap PO 600 mg BID MAYO Administration Heparin Sodium (Porcine) 5,000 units 04/10/20 09:00 04/16/20 07:50 Heparin 5,000 Units/Ml Vial SC 5,000 units TID MAYO Administration Insulin Glargine 25 units/ 0.25 mls @ 0 mls/hr 04/12/20 09:00 04/16/20 08:56 Miscellaneous Medication SC 0.25 mls QAM MAYO Administration As Directed Cefepime HCl 2 gm/ Sodium 100 mls @ 200 mls/hr 04/14/20 15:00 04/16/20 02:13 Chloride IVPB 100 mls 0300,1500 MAYO Administration Loperamide HCl 2 mg 04/15/20 14:47 04/16/20 10:08 Loperamide Hcl 2 Mg Cap PO 2 mg QIDPRN PRN Administration Diarrhea/Loose Stools Menthol/Methyl Salicylate 1 gm 11/09/20 20:18 04/10/20 21:00 Methyl Salicylate/Menthol 85 Gm Tube TOP 1 gm QID PRN Administration pain Metformin HCl 500 mg 04/11/20 21:00 04/16/20 07:50 Metformin 500 Mg Tab PO 500 mg BID MAYO Administration Morphine Sulfate 30 mg 04/10/20 15:00 04/16/20 07:48 Morphine Er 30 Mg Tab PO 30 mg TID MAYO Administration Nystatin 30 gm 04/10/20 04:17 04/10/20 05:35 Nystatin Powder 15 Gm Bot TOP 1 applic BID PRN Administration Topical Irritations Trazodone HCl 100 mg 04/10/20 21:00 04/15/20 20:07 Trazodone Hcl 50 Mg Tab PO 100 mg HS MAYO Administration - Exam General Appearance: awake alert Neck: supple, no JVD Heart: RRR Respiratory: normal chest expansion, no tachypnea Extremities: no cyanosis, no clubbing Neurological: cranial nerve grossly intact, no focal deficits Hosp A/P (1) Cellulitis and abscess of left leg Code(s): L03.116 - CELLULITIS OF LEFT LOWER LIMB; L02.416 - CUTANEOUS ABSCESS OF LEFT LOWER LIMB Status: Acute (2) DM (diabetes mellitus), type 2, uncontrolled Code(s): E11.65 - TYPE 2 DIABETES MELLITUS WITH HYPERGLYCEMIA Status: Acute (3) Obesity, morbid, BMI 40.0-49.9 Code(s): E66.01 - MORBID (SEVERE) OBESITY DUE TO EXCESS CALORIES Status: Acute (4) Venous stasis dermatitis of both lower extremities Code(s): I87.2 - VENOUS INSUFFICIENCY (CHRONIC) (PERIPHERAL) Status: Acute (5) Hypertension Code(s): I10 - ESSENTIAL (PRIMARY) HYPERTENSION Status: Chronic Qualifiers: Hypertension type: essential hypertension Qualified Code(s): I10 - Essential (primary) hypertension - Plan Wound culture is positive for multiple bacteria. ID recommended treating with IV cefepime. Based on sensitivities, outpatient regimen could be ciprofloxacin plus doxycycline. ID on the case. Awaiting SNF placement. Continue wound care.
[2020-04-16] MEDS: traZODone HCl 50 MG TAB PO SCH (20:32)
[2020-04-17] MEDS: Cefepime 2 GM in Sodium Chloride 0.9% 100 ML IVPB SCH ×2 (03:13→15:07)
[2020-04-17] MEDS: Morphine ER 30 MG TAB PO SCH ×3 (08:06→20:46)
[2020-04-17] MEDS: metFORMIN 500 MG TAB PO SCH ×2 (08:06→20:46)
[2020-04-17] MEDS: Furosemide 40 MG TAB PO SCH (08:06)
[2020-04-17] MEDS: Heparin 5,000 UNITS/ML VIAL SC SCH ×3 (08:08→20:46)
[2020-04-17] MEDS: Insulin Glargine 25 UNITS in Pre-Filled Syringe 1 EACH SC SCH (08:09)
[2020-04-17] MEDS: Gabapentin 300 MG CAP PO SCH ×2 (08:09→20:45)
[2020-04-17 10:25] LABS: #Eosinphils 0.3 thou/uL (0.0-0.7); #Lymphocytes 1.2 thou/uL (1.20-3.40); #Monocytes 0.5 thou/uL (0.11-0.59); #Neutrophils 4.6 thou/uL (1.40-6.50); %Basophils 0.6 % (0.0-1.0); %Eosinophils 3.9 % (0.0-10.0); %Lymphocytes 18.5 % (21.0-51.0); %Monocytes 7.6 % (0.0-10.0); %Neutrophils 69.4 % (42.0-75.0); Hemoglobin 12.4 g/dL (14.0-18.0); Mean Corpuscular HGB CONC 33.4 g/dL (32.0-36.0); Mean Corpuscular Hemoglobin 32.2 pg (27.0-31.0); Mean Corpuscular Volume 96.2 fL (78.0-98.0); Mean Platelet Volume 7.5 fL (7.4-10.4); Platelet Count 380 thou/uL (130-400); Red Blood Cell (RBC) Count 3.86 mill/uL (4.70-6.10); White Blood Cell (WBC) Count 6.6 thou/uL (4.8-10.8)
[2020-04-17 10:43] LABS: Anion Gap 13 mmol/L (10-20); BUN (Urea Nitrogen) 14 mg/dL (8.4-25.7); Calc. Creatinine Clearance 103 mL/min (70-130); Calcium 8.8 mg/dL (7.8-10.44); Carbon Dioxide 26 mmol/L (23-31); Chloride 103 mmol/L (98-107); Estimated GFR-MDRD 47; Glucose 132 mg/dL (80-115); Potassium 3.9 mmol/L (3.5-5.1); Sodium 138 mmol/L (136-145)
--- NOTE | 2020-04-17 15:15 | PRG ---
DATE OF SERVICE: SUBJECTIVE: Mr. Fox is doing well today. Venous stasis changes in the left leg have markedly improved. There is no longer any significant cellulitis. The edema has markedly improved with compression sequential dressings. I have written him a prescription for compression knee-high dressings, left leg to wear. He will need to get these fitted at one of the medical supply houses. He can see outpatient wound care for his venous stasis disease. I will see him as needed. Dr. Gene Wharton can follow his venous stasis disease. I will see him as needed this hospitalization. Patient is ready for discharge. Job ID: [id number]
--- NOTE | 2020-04-17 15:22 | PDOC.HOSPP ---
- Subjective Encounter Date: 04/17/20 - Objective Vital Signs & Weight: Vital Signs (12 hours) Temp Pulse Resp BP BP Pulse Ox 04/17/20 12:00 16 04/17/20 11:35 97.6 F 104 H 16 118/65 98 04/17/20 08:00 16 97 04/17/20 07:51 97.6 F 91 16 137/69 97 Weight Admit Weight 346 lb 1.6 oz Weight 346 lb 1.6 oz I&O: 04/16/20 04/17/20 04/18/20 06:59 06:59 06:59 Intake Total 450 1120 Output Total 300 Balance 450 820 Result Diagrams: 04/17/20 09:55 04/17/20 09:55 Additional Labs: Accuchecks 04/17/20 04/17/20 04/16/20 11:41 05:25 22:26 POC Glucose 138 H 134 H 102 H 04/16/20 04/15/20 16:25 20:07 POC Glucose 131 H 128 H Hospitalist ROS - Medication Medications: Active Medications Generic Name Dose Route Start Last Admin Trade Name Freq PRN Reason Stop Dose Admin Acetaminophen 650 mg 04/10/20 04:21 04/16/20 20:32 Acetaminophen 325 Mg Tab PO 650 mg Q4H PRN Administration Headache/Fever/Mild Pain (1-3) Furosemide 40 mg 04/12/20 09:00 04/17/20 08:06 Furosemide 40 Mg Tab PO 40 mg DAILY MAYO Administration Gabapentin 600 mg 04/10/20 09:00 04/17/20 08:09 Gabapentin 300 Mg Cap PO 600 mg BID MAYO Administration Heparin Sodium (Porcine) 5,000 units 04/10/20 09:00 04/17/20 15:06 Heparin 5,000 Units/Ml Vial SC 5,000 units TID MAYO Administration Insulin Glargine 25 units/ 0.25 mls @ 0 mls/hr 04/12/20 09:00 04/17/20 08:09 Miscellaneous Medication SC 0.25 mls QAM MAYO Administration As Directed Loperamide HCl 2 mg 04/15/20 14:47 04/16/20 10:08 Loperamide Hcl 2 Mg Cap PO 2 mg QIDPRN PRN Administration Diarrhea/Loose Stools Menthol/Methyl Salicylate 1 gm 04/10/20 20:18 04/10/20 21:00 Methyl Salicylate/Menthol 85 Gm Tube TOP 1 gm QID PRN Administration pain Metformin HCl 500 mg 04/11/20 21:00 04/17/20 08:06 Metformin 500 Mg Tab PO 500 mg BID MAYO Administration Morphine Sulfate 30 mg 04/10/20 15:00 04/17/20 15:07 Morphine Er 30 Mg Tab PO 30 mg TID MAYO Administration Nystatin 30 gm 04/10/20 04:17 04/10/20 05:35 Nystatin Powder 15 Gm Bot TOP 1 applic BID PRN Administration Topical Irritations Trazodone HCl 100 mg 04/10/20 21:00 04/16/20 20:32 Trazodone Hcl 50 Mg Tab PO 100 mg HS MAYO Administration - Exam General Appearance: awake alert ENT: normocephalic atraumatic Neck: supple, no JVD Respiratory: normal chest expansion, no tachypnea Extremities: no cyanosis, no clubbing Neurological: cranial nerve grossly intact, no focal deficits Hosp A/P (1) Cellulitis and abscess of left leg Code(s): L03.116 - CELLULITIS OF LEFT LOWER LIMB; L02.416 - CUTANEOUS ABSCESS OF LEFT LOWER LIMB Status: Acute (2) DM (diabetes mellitus), type 2, uncontrolled Code(s): E11.65 - TYPE 2 DIABETES MELLITUS WITH HYPERGLYCEMIA Status: Acute (3) Obesity, morbid, BMI 40.0-49.9 Code(s): E66.01 - MORBID (SEVERE) OBESITY DUE TO EXCESS CALORIES Status: Acute (4) Venous stasis dermatitis of both lower extremities Code(s): I87.2 - VENOUS INSUFFICIENCY (CHRONIC) (PERIPHERAL) Status: Acute (5) Hypertension Code(s): I10 - ESSENTIAL (PRIMARY) HYPERTENSION Status: Chronic Qualifiers: Hypertension type: essential hypertension Qualified Code(s): I10 - Essential (primary) hypertension - Plan Wound culture is positive for multiple bacteria. Continue IV cefepime. The condition of his lower extremity improved. Awaiting rehab placement. The patient can be discharged on ciprofloxacin and doxycycline in addition to compression stockings. ID recommended sepsis therapy with penicillin VK afterwards. Continue wound care.
--- NOTE | 2020-04-17 15:31 | PRG ---
DATE OF SERVICE: SUBJECTIVE: Feeling better, less pain, less swelling. No respiratory symptoms. No diarrhea. No abdominal pain. OBJECTIVE: VITAL SIGNS: He is afebrile, BP 118/65, heart rate 104, breathing 16 times a minute, and satting 98% on room air. GENERAL: Does not appear in distress. LUNGS: Clear. HEART: S1 and S2. Regular rate. ABDOMEN: Protuberant, but not tender. EXTREMITIES: Legs are dressed with compressive dressing. The left leg is much less swollen. MEDICATION LIST: He is on cefepime 2 g twice a day. LABORATORY DATA: White cell count 6.6, hemoglobin 12.4, and platelets 380. Creatinine 1.48, which is better than initially. Microbiology with Pseudomonas aeruginosa, mendocina, E. faecalis. The Pseudomonas are sensitive to quinolone. ASSESSMENT AND DISCUSSION: 1. Type 2 diabetes. 2. Hypertension. 3. Chronic kidney disease. 4. Recurrent episodes of cellulitis. I believe this episode is due to a gram-negative doyle cellulitis, so we will go ahead and transition him to oral Cipro and treat him twice daily usual dose for about 10 days and then transition to suppressive pen VK for secondary prophylaxis plus compressive dressing. Job ID: [id number]
[2020-04-17] MEDS: Acetaminophen 325 MG TAB PO PRN (20:45)
[2020-04-17] MEDS: traZODone HCl 50 MG TAB PO SCH (20:46)
[2020-04-17] MEDS: Ciprofloxacin 500 MG TAB PO SCH (20:46)
[2020-04-18] MEDS: Ciprofloxacin 500 MG TAB PO SCH ×2 (05:27→20:02)
[2020-04-18 05:40] LABS: #Basophils 0.1 thou/uL (0.0-0.2); #Eosinphils 0.2 thou/uL (0.0-0.7); #Lymphocytes 1.5 thou/uL (1.20-3.40); #Monocytes 0.7 thou/uL (0.11-0.59); %Basophils 0.8 % (0.0-1.0); %Eosinophils 3.8 % (0.0-10.0); %Lymphocytes 23.1 % (21.0-51.0); %Monocytes 10.2 % (0.0-10.0); Hemoglobin 11.8 g/dL (14.0-18.0); Mean Corpuscular HGB CONC 31.6 g/dL (32.0-36.0); Mean Corpuscular Hemoglobin 30.3 pg (27.0-31.0); Mean Corpuscular Volume 95.8 fL (78.0-98.0); Mean Platelet Volume 7.2 fL (7.4-10.4); Platelet Count 384 thou/uL (130-400); RBC Distribution Width 12.2 % (11.5-14.5); Red Blood Cell (RBC) Count 3.92 mill/uL (4.70-6.10); White Blood Cell (WBC) Count 6.4 thou/uL (4.8-10.8)
[2020-04-18 06:03] LABS: Anion Gap 13 mmol/L (10-20); BUN (Urea Nitrogen) 13 mg/dL (8.4-25.7); Calc. Creatinine Clearance 100 mL/min (70-130); Calcium 8.8 mg/dL (7.8-10.44); Carbon Dioxide 24 mmol/L (23-31); Chloride 105 mmol/L (98-107); Estimated GFR-MDRD 46; Glucose 111 mg/dL (80-115); Potassium 4.2 mmol/L (3.5-5.1); Sodium 138 mmol/L (136-145)
[2020-04-18] MEDS: Acetaminophen 325 MG TAB PO PRN (08:29)
[2020-04-18] MEDS: Morphine ER 30 MG TAB PO SCH ×3 (08:29→20:03)
[2020-04-18] MEDS: Gabapentin 300 MG CAP PO SCH ×2 (08:30→20:02)
[2020-04-18] MEDS: metFORMIN 500 MG TAB PO SCH ×2 (08:30→20:03)
[2020-04-18] MEDS: Furosemide 40 MG TAB PO SCH (08:30)
[2020-04-18] MEDS: Heparin 5,000 UNITS/ML VIAL SC SCH ×3 (08:30→20:03)
[2020-04-18] MEDS: Insulin Glargine 25 UNITS in Pre-Filled Syringe 1 EACH SC SCH (08:46)
--- NOTE | 2020-04-18 15:21 | PDOC.HOSPP ---
- Subjective Encounter Date: 04/18/20 - Objective Vital Signs & Weight: Vital Signs (12 hours) Temp Pulse Resp BP Pulse Ox 04/18/20 12:00 98.0 F 92 18 134/78 97 04/18/20 08:00 98.9 F 87 18 160/87 H 98 04/18/20 04:22 98.1 F 75 18 121/72 98 Weight Admit Weight 346 lb 1.6 oz Weight 346 lb 1.6 oz I&O: 04/17/20 04/18/20 04/19/20 06:59 06:59 06:59 Intake Total 1120 810 Output Total 300 Balance 820 810 Result Diagrams: 04/18/20 05:28 04/18/20 05:28 Additional Labs: Accuchecks 04/18/20 04/18/20 04/17/20 11:48 05:38 20:21 POC Glucose 175 H 98 140 H 04/17/20 16:30 POC Glucose 149 H Hospitalist ROS - Medication Medications: Active Medications Generic Name Dose Route Start Last Admin Trade Name Freq PRN Reason Stop Dose Admin Acetaminophen 650 mg 04/10/20 04:21 04/18/20 08:29 Acetaminophen 325 Mg Tab PO 650 mg Q4H PRN Administration Headache/Fever/Mild Pain (1-3) Ciprofloxacin 500 mg 04/17/20 20:00 04/18/20 05:27 Ciprofloxacin 500 Mg Tab PO 500 mg 0600,1999 MAYO Administration Furosemide 40 mg 04/12/20 09:00 04/18/20 08:30 Furosemide 40 Mg Tab PO 40 mg DAILY MAYO Administration Gabapentin 600 mg 04/10/20 09:00 04/18/20 08:30 Gabapentin 300 Mg Cap PO 600 mg BID MAYO Administration Heparin Sodium (Porcine) 5,000 units 04/10/20 09:00 04/18/20 08:30 Heparin 5,000 Units/Ml Vial SC 5,000 units TID MAYO Administration Insulin Glargine 25 units/ 0.25 mls @ 0 mls/hr 04/12/20 09:00 04/18/20 08:46 Miscellaneous Medication SC 0.25 mls QAM MAYO Administration As Directed Loperamide HCl 2 mg 04/15/20 14:47 04/16/20 10:08 Loperamide Hcl 2 Mg Cap PO 2 mg QIDPRN PRN Administration Diarrhea/Loose Stools Menthol/Methyl Salicylate 1 gm 04/10/20 20:18 04/10/20 21:00 Methyl Salicylate/Menthol 85 Gm Tube TOP 1 gm QID PRN Administration pain Metformin HCl 500 mg 04/11/20 21:00 04/18/20 08:30 Metformin 500 Mg Tab PO 500 mg BID MAYO Administration Morphine Sulfate 30 mg 04/10/20 15:00 04/18/20 08:29 Morphine Er 30 Mg Tab PO 30 mg TID MAYO Administration Nystatin 30 gm 04/10/20 04:17 04/10/20 05:35 Nystatin Powder 15 Gm Bot TOP 1 applic BID PRN Administration Topical Irritations Trazodone HCl 100 mg 04/10/20 21:00 04/17/20 20:46 Trazodone Hcl 50 Mg Tab PO 100 mg HS MAYO Administration - Exam General Appearance: awake alert ENT: normocephalic atraumatic Neck: supple, no JVD Respiratory: normal chest expansion, no tachypnea Gastrointestinal: soft Extremities: no cyanosis, no clubbing Neurological: cranial nerve grossly intact, no focal deficits Hosp A/P (1) Cellulitis and abscess of left leg Code(s): L03.116 - CELLULITIS OF LEFT LOWER LIMB; L02.416 - CUTANEOUS ABSCESS OF LEFT LOWER LIMB Status: Acute (2) DM (diabetes mellitus), type 2, uncontrolled Code(s): E11.65 - TYPE 2 DIABETES MELLITUS WITH HYPERGLYCEMIA Status: Acute (3) Obesity, morbid, BMI 40.0-49.9 Code(s): E66.01 - MORBID (SEVERE) OBESITY DUE TO EXCESS CALORIES Status: Acute (4) Venous stasis dermatitis of both lower extremities Code(s): I87.2 - VENOUS INSUFFICIENCY (CHRONIC) (PERIPHERAL) Status: Acute (5) Hypertension Code(s): I10 - ESSENTIAL (PRIMARY) HYPERTENSION Status: Chronic Qualifiers: Hypertension type: essential hypertension Qualified Code(s): I10 - E ssential (primary) hypertension - Plan Wound culture is positive for multiple bacteria. Continue IV cefepime. The condition of his lower extremity improved. Awaiting rehab placement. The patient can be discharged on ciprofloxacin and doxycycline in addition to compression stockings. ID recommended sepsis therapy with penicillin VK afterwards. Continue wound care. Patient is feeling better. He is ambulating with a walker. He stated that he is unable to take care of himself at home and he lives far from other people. He wishes to SNF placement if rehab is denied by his insurance.
[2020-04-18] MEDS: traZODone HCl 50 MG TAB PO SCH (20:04)
[2020-04-19] MEDS: Acetaminophen 325 MG TAB PO PRN (03:30)
[2020-04-19] MEDS: Ciprofloxacin 500 MG TAB PO SCH ×2 (05:31→19:36)
[2020-04-19 05:58] LABS: #Eosinphils 0.3 thou/uL (0.0-0.7); #Lymphocytes 1.3 thou/uL (1.20-3.40); #Monocytes 0.5 thou/uL (0.11-0.59); #Neutrophils 4.5 thou/uL (1.40-6.50); %Basophils 0.7 % (0.0-1.0); %Eosinophils 4.9 % (0.0-10.0); %Lymphocytes 19.6 % (21.0-51.0); %Neutrophils 66.7 % (42.0-75.0); Hemoglobin 11.9 g/dL (14.0-18.0); Mean Corpuscular HGB CONC 33.9 g/dL (32.0-36.0); Mean Corpuscular Volume 94.5 fL (78.0-98.0); Mean Platelet Volume 7.4 fL (7.4-10.4); Platelet Count 384 thou/uL (130-400); RBC Distribution Width 12.1 % (11.5-14.5); White Blood Cell (WBC) Count 6.8 thou/uL (4.8-10.8)
[2020-04-19 06:17] LABS: Anion Gap 15 mmol/L (10-20); BUN (Urea Nitrogen) 14 mg/dL (8.4-25.7); Calc. Creatinine Clearance 107 mL/min (70-130); Calcium 8.9 mg/dL (7.8-10.44); Carbon Dioxide 23 mmol/L (23-31); Chloride 105 mmol/L (98-107); Estimated GFR-MDRD 49; Glucose 104 mg/dL (80-115); Potassium 4.3 mmol/L (3.5-5.1); Sodium 139 mmol/L (136-145)
[2020-04-19] MEDS: metFORMIN 500 MG TAB PO SCH ×2 (08:19→19:37)
[2020-04-19] MEDS: Morphine ER 30 MG TAB PO SCH ×3 (08:19→19:37)
[2020-04-19] MEDS: Gabapentin 300 MG CAP PO SCH ×2 (08:19→19:36)
[2020-04-19] MEDS: Heparin 5,000 UNITS/ML VIAL SC SCH ×3 (08:20→19:37)
[2020-04-19] MEDS: Furosemide 40 MG TAB PO SCH (08:20)
[2020-04-19] MEDS: Insulin Glargine 25 UNITS in Pre-Filled Syringe 1 EACH SC SCH (08:31)
[2020-04-19] MEDS: Methyl Salicylate/Menthol 85 GM TUBE TOP PRN (16:45)
[2020-04-19] MEDS: traZODone HCl 50 MG TAB PO SCH (19:37)
--- NOTE | 2020-04-19 20:36 | PDOC.HOSPP ---
- Subjective Encounter Date: 04/19/20 - Objective Vital Signs & Weight: Vital Signs (12 hours) Temp Pulse Resp BP BP Pulse Ox 04/19/20 19:55 98.3 F 96 18 118/63 93 L 04/19/20 15:30 98 F 96 18 146/85 H 96 04/19/20 11:20 97.8 F 85 16 154/75 H 96 Weight Admit Weight 346 lb 1.6 oz Weight 346 lb 1.6 oz I&O: 04/18/20 04/19/20 04/20/20 06:59 06:59 06:59 Intake Total 179 173 1808 Balance 280 229 2985 Result Diagrams: 04/19/20 05:25 04/19/20 05:25 Additional Labs: Accuchecks 04/19/20 04/19/20 04/19/20 19:57 15:28 10:50 POC Glucose 146 H 132 H 133 H 04/19/20 04/18/20 05:45 20:30 POC Glucose 103 H 136 H Hospitalist ROS - Medication Medications: Active Medications Generic Name Dose Route Start Last Admin Trade Name Freq PRN Reason Stop Dose Admin Acetaminophen 650 mg 04/10/20 04:21 04/19/20 03:30 Acetaminophen 325 Mg Tab PO 650 mg Q4H PRN Administration Headache/Fever/Mild Pain (1-3) Ciprofloxacin 500 mg 04/17/20 20:00 04/19/20 19:36 Ciprofloxacin 500 Mg Tab PO 500 mg 0600,2000 MAYO Administration Furosemide 40 mg 04/12/20 09:00 04/19/20 08:20 Furosemide 40 Mg Tab PO 40 mg DAILY MAYO Administration Gabapentin 600 mg 04/10/20 09:00 04/19/20 19:36 Gabapentin 300 Mg Cap PO 600 mg BID MAYO Administration Heparin Sodium (Porcine) 5,000 units 04/10/20 09:00 04/19/20 19:37 Heparin 5,000 Units/Ml Vial SC 5,000 units TID MAYO Administration Insulin Glargine 25 units/ 0.25 mls @ 0 mls/hr 04/12/20 09:00 04/19/20 08:31 Miscellaneous Medication SC 0.25 mls QAM MAYO Administration As Directed Loperamide HCl 2 mg 04/15/20 14:47 04/16/20 10:08 Loperamide Hcl 2 Mg Cap PO 2 mg QIDPRN PRN Administration Diarrhea/Loose Stools Menthol/Methyl Salicylate 1 gm 04/10/20 20:18 04/19/20 16:45 Methyl Salicylate/Menthol 85 Gm Tube TOP 1 gm QID PRN Administration pain Metformin HCl 500 mg 04/11/20 21:00 04/19/20 19:37 Metformin 500 Mg Tab PO 500 mg BID MAYO Administration Morphine Sulfate 30 mg 04/10/20 15:00 04/19/20 19:37 Morphine Er 30 Mg Tab PO 30 mg TID MAYO Administration Nystatin 30 gm 04/10/20 04:17 04/10/20 05:35 Nystatin Powder 15 Gm Bot TOP 1 applic BID PRN Administration Topical Irritations Trazodone HCl 100 mg 04/10/20 21:00 04/19/20 19:37 Trazodone Hcl 50 Mg Tab PO 100 mg HS MAYO Administration - Exam General Appearance: awake alert ENT: normocephalic atraumatic Neck: supple, no JVD Heart: RRR Respiratory: normal chest expansion, no tachypnea Gastrointestinal: soft Extremities: no cyanosis, no clubbing Neurological: cranial nerve grossly intact Hosp A/P (1) Cellulitis and abscess of left leg Code(s): L03.116 - CELLULITIS OF LEFT LOWER LIMB; L02.416 - CUTANEOUS ABSCESS OF LEFT LOWER LIMB Status: Acute (2) DM (diabetes mellitus), type 2, uncontrolled Code(s): E11.65 - TYPE 2 DIABETES MELLITUS WITH HYPERGLYCEMIA Status: Acute (3) Obesity, morbid, BMI 40.0-49.9 Code(s): E66.01 - MORBID (SEVERE) OBESITY DUE TO EXCESS CALORIES Status: Acute (4) Venous stasis dermatitis of both lower extremities Code(s): I87.2 - VENOUS INSUFFICIENCY (CHRONIC) (PERIPHERAL) Status: Acute (5) Hypertension Code(s): I10 - ESSENTIAL (PRIMARY) HYPERTENSION Status: Chronic Qualifiers: Hypertension type: essential hypertension Qualified Code(s): I10 - Essential (primary) hypertension - Plan Wound culture is positive for multiple bacteria. Continue IV cefepime. The condition of his lower extremity improved. Awaiting rehab placement. The patient can be discharged on ciprofloxacin and doxycycline in addition to compression stockings. ID recommended sepsis therapy with penicillin VK afterwards. Continue wound care. Patient is feeling better. He is ambulating with a walker. He stated that he is unable to take care of himself at home and he lives far from other people. SNF Placement pending.
[2020-04-20] MEDS: Methyl Salicylate/Menthol 85 GM TUBE TOP PRN (01:57)
[2020-04-20 05:17] LABS: #Basophils 0.1 thou/uL (0.0-0.2); #Eosinphils 0.3 thou/uL (0.0-0.7); #Lymphocytes 1.5 thou/uL (1.20-3.40); #Monocytes 0.7 thou/uL (0.11-0.59); #Neutrophils 3.8 thou/uL (1.40-6.50); %Basophils 0.8 % (0.0-1.0); %Eosinophils 5.1 % (0.0-10.0); %Lymphocytes 23.6 % (21.0-51.0); %Monocytes 10.8 % (0.0-10.0); %Neutrophils 59.7 % (42.0-75.0); Hemoglobin 11.2 g/dL (14.0-18.0); Mean Corpuscular HGB CONC 31.8 g/dL (32.0-36.0); Mean Corpuscular Hemoglobin 30.5 pg (27.0-31.0); Mean Corpuscular Volume 95.8 fL (78.0-98.0); Mean Platelet Volume 7.3 fL (7.4-10.4); Platelet Count 399 thou/uL (130-400); RBC Distribution Width 12.1 % (11.5-14.5); Red Blood Cell (RBC) Count 3.67 mill/uL (4.70-6.10); White Blood Cell (WBC) Count 6.4 thou/uL (4.8-10.8)
[2020-04-20] MEDS: Ciprofloxacin 500 MG TAB PO SCH (05:22)
[2020-04-20 05:35] LABS: Anion Gap 12 mmol/L (10-20); BUN (Urea Nitrogen) 15 mg/dL (8.4-25.7); Calc. Creatinine Clearance 98 mL/min (70-130); Calcium 8.6 mg/dL (7.8-10.44); Carbon Dioxide 27 mmol/L (23-31); Chloride 102 mmol/L (98-107); Estimated GFR-MDRD 45; Glucose 147 mg/dL (80-115); Potassium 4.1 mmol/L (3.5-5.1); Sodium 137 mmol/L (136-145)
[2020-04-20 07:46] VITALS: BP 144/77; TEMP 99
[2020-04-20] MEDS: metFORMIN 500 MG TAB PO SCH (08:40)
[2020-04-20] MEDS: Gabapentin 300 MG CAP PO SCH (08:40)
[2020-04-20] MEDS: Morphine ER 30 MG TAB PO SCH (08:40)
[2020-04-20] MEDS: Furosemide 40 MG TAB PO SCH (08:40)
[2020-04-20] MEDS: Heparin 5,000 UNITS/ML VIAL SC SCH (08:41)
[2020-04-20] MEDS: Insulin Glargine 25 UNITS in Pre-Filled Syringe 1 EACH SC SCH (08:41)
--- NOTE | 2020-04-21 02:59 | DIS ---
DATE OF ADMISSION: 04/09/2020 DATE OF DISCHARGE: 04/20/2020 DISCHARGE DIAGNOSES: 1. Cellulitis and abscess of his left leg. 2. Venous stasis dermatitis of lower extremities. 3. Diabetes mellitus type 2. 4. Obesity. 5. Hypertension. DISCHARGE MEDICATIONS: Ciprofloxacin 500 mg orally twice daily for 2 weeks. DISPOSITION: Home with Home Health and PT and Wound Care. The patient should be transitioned to suppressive penicillin VK for secondary prophylaxis plus suppressive post-compressive dressing. He was instructed to follow up with PCP and ID within 1 to 2 weeks. HISTORY OF PRESENT ILLNESS AND HOSPITAL COURSE: The patient is a 69-year-old male with history of diabetes mellitus and lower extremity venous stasis dermatitis, who presented to the hospital with swelling, redness, wounds, and tenderness of his left lower extremity. Severe cellulitis was noted on examination. Culture data was obtained that showed multibacterial growth including Enterococcus, Pseudomonas, Pseudomonas aeruginosa, Pseudomonas mendocina. The patient was started on IV antibiotics and ID Surgery Service was consulted. He received wound care during his hospital stay and ID recommended covering the patient with ciprofloxacin and then transition him to long-term suppressive treatment with penicillin VK. Job ID: [id number]
== END 2020-04-20 12:07 | disposition home health service (06) | DRG 638 ==
LOC: ERS 18:46 → SURG A 21:32
PROVIDERS: ADMIT Internal Medicine; ATTEND Internal Medicine
DX: E11.628 Type 2 diabetes mellitus with other skin complications (principal); L03.116 Cellulitis of left lower limb; Z23 Encounter for immunization; Z20.828 Contact with and (suspected) exposure to other viral communicable diseases; L02.416 Cutaneous abscess of left lower limb; Z68.42 Body mass index [BMI] 45.0-49.9, adult; B96.89 Other specified bacterial agents as the cause of diseases classified elsewhere; B95.2 Enterococcus as the cause of diseases classified elsewhere; E11.22 Type 2 diabetes mellitus with diabetic chronic kidney disease; E11.40 Type 2 diabetes mellitus with diabetic neuropathy, unspecified; E11.65 Type 2 diabetes mellitus with hyperglycemia; G89.29 Other chronic pain; I12.9 Hypertensive chronic kidney disease with stage 1 through stage 4 chronic kidney disease, or unspecified chronic kidney disease; M19.90 Unspecified osteoarthritis, unspecified site; F41.9 Anxiety disorder, unspecified; F32.9 Major depressive disorder, single episode, unspecified; G47.00 Insomnia, unspecified; I89.0 Lymphedema, not elsewhere classified; E66.01 Morbid (severe) obesity due to excess calories; N18.9 Chronic kidney disease, unspecified; F10.20 Alcohol dependence, uncomplicated; Z87.891 Personal history of nicotine dependence; Z79.4 Long term (current) use of insulin; Z79.899 Other long term (current) drug therapy
CPT/HCPCS: 36415; 36416; 80048; 80053; 80202; 82565; 83605; 85025; 87040; 87070; 87077; 87186; 87205; 87635; 90471; 90662; 96365; 96366; 96368; 96375; G0008; J0692; J0696; J1644; J1815; J1940; J2270; J3370; J3490; J7030; J7050; Q9967; U0003

== ENCOUNTER 2021-02-06 12:21 | Inpatient (IN) | payer MEDICARE ==
[2021-02-06 13:00] LABS: #Basophils 0.1 thou/uL (0.0-0.2); #Eosinphils 0.4 thou/uL (0.0-0.7); #Lymphocytes 1.1 thou/uL (1.20-3.40); #Monocytes 0.7 thou/uL (0.11-0.59); %Basophils 0.5 % (0.0-1.0); %Eosinophils 4.2 % (0.0-10.0); %Lymphocytes 10.3 % (21.0-51.0); %Monocytes 7.2 % (0.0-10.0); %Neutrophils 77.9 % (42.0-75.0); Hemoglobin 12.2 g/dL (14.0-18.0); Mean Corpuscular Hemoglobin 30.5 pg (27.0-31.0); Mean Corpuscular Volume 92.1 fL (78.0-98.0); Mean Platelet Volume 6.7 fL (7.4-10.4); Platelet Count 372 thou/uL (130-400); RBC Distribution Width 15.1 % (11.5-14.5); White Blood Cell (WBC) Count 10.3 thou/uL (4.8-10.8)
[2021-02-06 13:29] LABS: ALT (SGPT) 14 U/L (8-55); AST (SGOT) 13 U/L (5-34); Albumin 3.4 g/dL (3.4-4.8); Alkaline Phosphatase 76 U/L (40-110); Anion Gap 15 mmol/L (10-20); BUN (Urea Nitrogen) 14 mg/dL (8.4-25.7); Bilirubin, Total 0.3 mg/dL (0.2-1.2); Calc. Creatinine Clearance 0 mL/min (70-130); Calcium 8.5 mg/dL (7.8-10.44); Carbon Dioxide 20 mmol/L (23-31); Chloride 104 mmol/L (98-107); Globulin 3.2 g/dL (2.4-3.5); Glucose 158 mg/dL (83-110); Potassium 5.1 mmol/L (3.5-5.1); Protein, Total 6.6 g/dL (5.8-8.1); Sodium 134 mmol/L (136-145)
[2021-02-06] MEDS ORDERED: Cefepime 2 GM VIAL ONE (15:37)
[2021-02-06 16:39] LABS: Lactic Acid 1.3 mmol/L (0.5-2.2)
[2021-02-06] MEDS ORDERED: Clindamycin/D5W 900 mg/50 ml Premix Bag ONE (16:41)
[2021-02-06] MEDS ORDERED: VANCOMYCIN 2 GRAM/400 ML BAG 2 GM in Premix Bag 1 BAG IVPB SCH (17:00)
[2021-02-06 17:03] LABS: SARS-CoV-2 NAA Rapid Test Not Detected (NotDetected)
[2021-02-06] MEDS ORDERED: Enoxaparin Sodium 40 MG/0.4 ML SYRINGE SC SCH (22:19)
[2021-02-06] MEDS ORDERED: Ondansetron ODT 4 MG TAB PO PRN (22:19)
[2021-02-06] MEDS ORDERED: Acetaminophen 500 MG TAB PO PRN (22:19)
[2021-02-06] MEDS ORDERED: HumaLOG 300 UNITS/3 ML VIAL SC PRN (22:19)
[2021-02-06] MEDS ORDERED: Dextrose 5% in Water 1,000 ML IV PRN (22:19)
[2021-02-06] MEDS ORDERED: Dextrose 50% Abboject 50 ML SYRINGE SLOW IVP PRN (22:19)
[2021-02-06] MEDS ORDERED: hydrALAZINE 20 MG/ML VIAL SLOW IVP PRN (22:19)
[2021-02-06] MEDS ORDERED: HYDROcodone/Acetaminophen 5/325 mg Tablet PO PRN (22:19)
[2021-02-06] MEDS ORDERED: Ondansetron PF 4 MG/2 ML Vial IVP PRN (22:19)
[2021-02-06] MEDS ORDERED: Furosemide 40 MG/4 ML VIAL SLOW IVP SCH (22:19)
[2021-02-06] MEDS ORDERED: Famotidine 20 MG TAB PO SCH (22:45)
[2021-02-06] MEDS ORDERED: traZODone HCl 50 MG TAB PO SCH (22:45)
[2021-02-06] MEDS ORDERED: Gabapentin 300 MG CAP PO SCH (22:45)
[2021-02-06 22:50] VITALS: BMI 49.2
[2021-02-07] MEDS: Cefepime 2 GM in Sodium Chloride 0.9% 100 ML IVPB SCH ×2 (03:10→13:51)
[2021-02-07] MEDS ORDERED: VANCOMYCIN 1.25 GM/250 ML BAG 1.25 GM in Premix Bag 1 BAG IVPB SCH (06:00)
[2021-02-07] MEDS: Furosemide 40 MG/4 ML VIAL SLOW IVP SCH ×2 (06:15→13:51)
[2021-02-07 06:48] LABS: #Eosinphils 0.3 thou/uL (0.0-0.7); #Lymphocytes 0.9 thou/uL (1.20-3.40); #Monocytes 0.8 thou/uL (0.11-0.59); #Neutrophils 8.8 thou/uL (1.40-6.50); %Basophils 0.4 % (0.0-1.0); %Eosinophils 3.2 % (0.0-10.0); %Lymphocytes 8.2 % (21.0-51.0); %Monocytes 7.1 % (0.0-10.0); %Neutrophils 81.1 % (42.0-75.0); Mean Corpuscular HGB CONC 33.1 g/dL (32.0-36.0); Mean Corpuscular Hemoglobin 30.7 pg (27.0-31.0); Mean Corpuscular Volume 92.8 fL (78.0-98.0); Platelet Count 373 thou/uL (130-400); RBC Distribution Width 15.1 % (11.5-14.5); Red Blood Cell (RBC) Count 3.89 mill/uL (4.70-6.10); White Blood Cell (WBC) Count 10.8 thou/uL (4.8-10.8)
[2021-02-07] MEDS: HYDROcodone/Acetaminophen 5/325 mg Tablet PO PRN ×2 (06:49→17:21)
[2021-02-07 07:09] LABS: ALT (SGPT) 13 U/L (8-55); AST (SGOT) 12 U/L (5-34); Albumin 3.2 g/dL (3.4-4.8); Alkaline Phosphatase 68 U/L (40-110); Anion Gap 12 mmol/L (10-20); BUN (Urea Nitrogen) 16 mg/dL (8.4-25.7); Bilirubin, Total 0.4 mg/dL (0.2-1.2); Calc. Creatinine Clearance 100 mL/min (70-130); Calcium 8.7 mg/dL (7.8-10.44); Carbon Dioxide 24 mmol/L (23-31); Chloride 104 mmol/L (98-107); Globulin 3.6 g/dL (2.4-3.5); Glucose 149 mg/dL (83-110); Potassium 4.7 mmol/L (3.5-5.1); Protein, Total 6.8 g/dL (5.8-8.1); Sodium 135 mmol/L (136-145)
[2021-02-07] MEDS: Famotidine 20 MG TAB PO SCH ×2 (09:17→21:51)
[2021-02-07] MEDS: Glimepiride 2 MG TAB PO SCH (09:17)
[2021-02-07] MEDS: Lantus 1000 UNITS/10 ML VIAL SC SCH (09:17)
[2021-02-07] MEDS: Gabapentin 300 MG CAP PO SCH ×2 (09:17→21:51)
[2021-02-07] MEDS: Morphine 4 MG/ML VIAL SLOW IVP PRN ×2 (09:23→13:51)
[2021-02-07] MEDS: Vancomycin 1 GM in Premix Bag 1 BAG IVPB SCH (17:11)
[2021-02-07] MEDS: Enoxaparin Sodium 40 MG/0.4 ML SYRINGE SC SCH (21:51)
[2021-02-07] MEDS: traZODone HCl 50 MG TAB PO SCH (21:51)
[2021-02-08] MEDS: Cefepime 2 GM in Sodium Chloride 0.9% 100 ML IVPB SCH ×2 (04:00→14:19)
[2021-02-08] MEDS: Vancomycin 1 GM in Premix Bag 1 BAG IVPB SCH (05:55)
[2021-02-08] MEDS: Furosemide 40 MG/4 ML VIAL SLOW IVP SCH ×2 (05:55→14:19)
[2021-02-08] MEDS: Morphine 4 MG/ML VIAL SLOW IVP PRN ×3 (06:08→14:19)
[2021-02-08] MEDS: Gabapentin 300 MG CAP PO SCH ×2 (08:08→21:38)
[2021-02-08] MEDS: Glimepiride 2 MG TAB PO SCH (08:08)
[2021-02-08] MEDS: Famotidine 20 MG TAB PO SCH ×2 (08:08→21:40)
[2021-02-08] MEDS: Lantus 1000 UNITS/10 ML VIAL SC SCH (08:09)
[2021-02-08] MEDS: HYDROcodone/Acetaminophen 5/325 mg Tablet PO PRN ×3 (12:26→21:40)
[2021-02-08] MEDS ORDERED: ALPRAZolam 1 MG TAB PO PRN (14:54)
[2021-02-08] MEDS: Enoxaparin Sodium 40 MG/0.4 ML SYRINGE SC SCH (21:39)
[2021-02-08] MEDS: traZODone HCl 50 MG TAB PO SCH (21:40)
[2021-02-09] MEDS: Cefepime 2 GM in Sodium Chloride 0.9% 100 ML IVPB SCH ×3 (04:30→22:23)
[2021-02-09] MEDS: Furosemide 40 MG/4 ML VIAL SLOW IVP SCH ×2 (05:39→14:36)
[2021-02-09] MEDS ORDERED: Midazolam HCl 2 mg/2 ml Vial ONE (09:07)
[2021-02-09] MEDS ORDERED: Ketamine 50 MG/ML (10ML VIAL) ONE (09:10)
[2021-02-09] MEDS ORDERED: Fentanyl 100 MCG/2 ML VIAL ONE ×4 (09:10→11:28)
[2021-02-09] MEDS ORDERED: Dexamethasone 20 MG/5 ML VIAL ONE (09:25)
[2021-02-09] MEDS ORDERED: Ondansetron PF 4 MG/2 ML Vial ONE (09:25)
[2021-02-09] MEDS ORDERED: PROPOFOL 200 MG/20 ML VIAL ONE (09:25)
[2021-02-09] MEDS ORDERED: Lidocaine 1% PF 5 ML VIAL ONE (09:25)
[2021-02-09] MEDS ORDERED: Succinylcholine 200 MG/10 ml SYRINGE FS ONE (09:25)
[2021-02-09] MEDS ORDERED: Ondansetron HCl/PF 4 MG/2 ML Vial IVP PRN (10:12)
[2021-02-09] MEDS ORDERED: HYDROmorphone 2 MG/ML VIAL SLOW IVP PRN (10:12)
[2021-02-09] MEDS ORDERED: Promethazine HCl 25 MG/ML VIAL IVPB PRN (10:12)
[2021-02-09] MEDS ORDERED: Promethazine HCl 25 MG/ML VIAL IM PRN (10:12)
[2021-02-09] MEDS ORDERED: HYDROmorphone 2 MG/ML VIAL ONE (10:16)
[2021-02-09] MEDS ORDERED: Promethazine HCl 25 MG/ML VIAL ONE (10:17)
[2021-02-09] MEDS ORDERED: Meperidine HCl/PF 25 MG/ML VIAL ONE (10:17)
[2021-02-09] MEDS: Lantus 1000 UNITS/10 ML VIAL SC SCH (11:34)
[2021-02-09] MEDS: Famotidine 20 MG TAB PO SCH ×2 (11:47→20:25)
[2021-02-09] MEDS: Gabapentin 300 MG CAP PO SCH ×2 (11:48→20:25)
[2021-02-09] MEDS: Glimepiride 2 MG TAB PO SCH (11:49)
[2021-02-09] MEDS: HYDROcodone/Acetaminophen 5/325 mg Tablet PO PRN ×2 (12:44→20:25)
[2021-02-09] MEDS: HumaLOG 300 UNITS/3 ML VIAL SC PRN (16:43)
[2021-02-09] MEDS: traZODone HCl 50 MG TAB PO SCH (20:24)
[2021-02-09] MEDS: Enoxaparin Sodium 40 MG/0.4 ML SYRINGE SC SCH (20:27)
[2021-02-10] MEDS: HYDROcodone/Acetaminophen 5/325 mg Tablet PO PRN ×4 (01:27→23:05)
[2021-02-10] MEDS: Furosemide 40 MG/4 ML VIAL SLOW IVP SCH ×3 (05:56→14:48)
[2021-02-10] MEDS: Gabapentin 300 MG CAP PO SCH ×2 (10:13→21:17)
[2021-02-10] MEDS: Glimepiride 2 MG TAB PO SCH (10:13)
[2021-02-10] MEDS: Famotidine 20 MG TAB PO SCH ×2 (10:14→21:17)
[2021-02-10] MEDS: Lantus 1000 UNITS/10 ML VIAL SC SCH (10:15)
[2021-02-10] MEDS: Cefepime 2 GM in Sodium Chloride 0.9% 100 ML IVPB SCH ×2 (14:39→14:48)
[2021-02-10] MEDS: Cephalexin 250 MG CAP PO SCH ×2 (15:17→21:15)
[2021-02-10] MEDS ORDERED: Ketorolac Tromethamine 30 MG/ML VIAL IM PRN (16:03)
[2021-02-10] MEDS: Ibuprofen 200 MG TAB PO SCH (21:16)
[2021-02-10] MEDS: Enoxaparin Sodium 40 MG/0.4 ML SYRINGE SC SCH (21:17)
[2021-02-10] MEDS: traZODone HCl 50 MG TAB PO SCH (21:17)
[2021-02-11] MEDS: Cephalexin 250 MG CAP PO SCH ×3 (08:28→20:59)
[2021-02-11] MEDS: Famotidine 20 MG TAB PO SCH ×2 (08:28→20:59)
[2021-02-11] MEDS: Gabapentin 300 MG CAP PO SCH ×2 (08:28→20:58)
[2021-02-11] MEDS: Glimepiride 2 MG TAB PO SCH (08:28)
[2021-02-11] MEDS: Furosemide 20 MG TAB PO SCH ×2 (08:28→14:16)
[2021-02-11] MEDS: Ibuprofen 200 MG TAB PO SCH ×2 (08:28→20:58)
[2021-02-11] MEDS: Lantus 1000 UNITS/10 ML VIAL SC SCH (08:29)
[2021-02-11] MEDS: HYDROcodone/Acetaminophen 5/325 mg Tablet PO PRN ×2 (12:48→23:05)
[2021-02-11] MEDS: HumaLOG 300 UNITS/3 ML VIAL SC PRN (18:04)
[2021-02-11] MEDS: Enoxaparin Sodium 40 MG/0.4 ML SYRINGE SC SCH (20:59)
[2021-02-11] MEDS: traZODone HCl 50 MG TAB PO SCH (20:59)
[2021-02-12] MEDS: HYDROcodone/Acetaminophen 5/325 mg Tablet PO PRN ×3 (08:48→20:54)
[2021-02-12] MEDS: Furosemide 20 MG TAB PO SCH ×2 (08:49→15:55)
[2021-02-12] MEDS: Famotidine 20 MG TAB PO SCH ×2 (08:49→20:52)
[2021-02-12] MEDS: Ibuprofen 200 MG TAB PO SCH ×2 (08:49→20:53)
[2021-02-12] MEDS: Gabapentin 300 MG CAP PO SCH ×2 (08:49→20:53)
[2021-02-12] MEDS: Glimepiride 2 MG TAB PO SCH (08:49)
[2021-02-12] MEDS: Cephalexin 250 MG CAP PO SCH ×3 (08:50→21:06)
[2021-02-12] MEDS: Lantus 1000 UNITS/10 ML VIAL SC SCH (08:51)
[2021-02-12] MEDS: Enoxaparin Sodium 40 MG/0.4 ML SYRINGE SC SCH (20:52)
[2021-02-12] MEDS: traZODone HCl 50 MG TAB PO SCH (20:54)
[2021-02-13] MEDS: Glimepiride 2 MG TAB PO SCH (07:47)
[2021-02-13] MEDS: Ibuprofen 200 MG TAB PO SCH (07:47)
[2021-02-13] MEDS: Lantus 1000 UNITS/10 ML VIAL SC SCH (07:48)
[2021-02-13] MEDS: Gabapentin 300 MG CAP PO SCH (07:48)
[2021-02-13] MEDS: Famotidine 20 MG TAB PO SCH (07:48)
[2021-02-13] MEDS: Furosemide 20 MG TAB PO SCH ×2 (08:01→14:39)
[2021-02-13] MEDS: Cephalexin 250 MG CAP PO SCH ×2 (08:02→14:39)
[2021-02-13] MEDS: HYDROcodone/Acetaminophen 5/325 mg Tablet PO PRN (09:04)
[2021-02-13 09:44] VITALS: BP 118/70; TEMP 98
== END 2021-02-13 15:15 | DRG 872 ==
LOC: ERS 12:21 → T4-A 18:12 → OBSVTOIN 18:12 → ERHOLD 19:41 → T4-A 20:31
PROVIDERS: ADMIT Family Medicine; ATTEND Internal Medicine
PROC: 0HDLXZZ Extraction of Left Lower Leg Skin, External Approach (ICD-10-PCS; principal; 2021-02-09)
PROC: 0HDKXZZ Extraction of Right Lower Leg Skin, External Approach (ICD-10-PCS; 2021-02-09)
DX: A41.9 Sepsis, unspecified organism (principal); L03.115 Cellulitis of right lower limb; M86.9 Osteomyelitis, unspecified; L97.929 Non-pressure chronic ulcer of unspecified part of left lower leg with unspecified severity; L97.919 Non-pressure chronic ulcer of unspecified part of right lower leg with unspecified severity; Z68.42 Body mass index [BMI] 45.0-49.9, adult; L03.116 Cellulitis of left lower limb; Z20.822 Contact with and (suspected) exposure to COVID-19; N18.30 Chronic kidney disease, stage 3 unspecified; F10.20 Alcohol dependence, uncomplicated; B96.5 Pseudomonas (aeruginosa) (mallei) (pseudomallei) as the cause of diseases classified elsewhere; B95.2 Enterococcus as the cause of diseases classified elsewhere; E11.51 Type 2 diabetes mellitus with diabetic peripheral angiopathy without gangrene; E11.69 Type 2 diabetes mellitus with other specified complication; E11.65 Type 2 diabetes mellitus with hyperglycemia; E11.22 Type 2 diabetes mellitus with diabetic chronic kidney disease; G89.29 Other chronic pain; I12.9 Hypertensive chronic kidney disease with stage 1 through stage 4 chronic kidney disease, or unspecified chronic kidney disease; E11.622 Type 2 diabetes mellitus with other skin ulcer; I87.2 Venous insufficiency (chronic) (peripheral); E66.01 Morbid (severe) obesity due to excess calories; F41.9 Anxiety disorder, unspecified; F32.9 Major depressive disorder, single episode, unspecified; Z79.84 Long term (current) use of oral hypoglycemic drugs; Z79.899 Other long term (current) drug therapy; Z83.3 Family history of diabetes mellitus
CPT/HCPCS: 36415; 36416; 76705; 80053; 83605; 85025; 87040; 96365; 96367; J0692; J1100; J1170; J1650; J1815; J1940; J2175; J2250; J2270; J2405; J2550; J2704; J3010; J3370; J3490; U0002

== ENCOUNTER 2022-06-04 13:25 | Outpatient (CLI) | payer MEDICARE, OTHER ==
[~2022-06-04 13:25] MED LIST changes: +Iopamidol 370 76% 100 ML VIAL ONE; -Iopamidol-370 76% 500 ML 1 ML ONE
== END 2022-06-04 13:26 | disposition home or self-care (01) ==
LOC: CT 13:25
PROVIDERS: ATTEND Thoracic Surgery (Cardiothoracic Vascular Surgery)
DX: I73.9 Peripheral vascular disease, unspecified (principal); I70.0 Atherosclerosis of aorta; R60.0 Localized edema
CPT/HCPCS: 75635; 82565; Q9967

== ENCOUNTER 2023-07-16 10:49 | Emergency (ER) | payer MEDICARE, OTHER ==
[2023-07-16] MEDS ORDERED: Cefepime 2 GM VIAL ONE (12:00)
[2023-07-16] MEDS ORDERED: Sodium Chloride 0.9% 100 ML ONE (12:00)
[2023-07-16 12:10] LABS: #Basophils 0.1 thou/uL (0.0-0.2); #Eosinphils 0.4 thou/uL (0.0-0.7); #Monocytes 0.6 thou/uL (0.11-0.59); %Basophils 0.6 % (0.0-1.0); %Eosinophils 5.2 % (0.0-10.0); %Lymphocytes 16.3 % (21.0-51.0); %Monocytes 6.7 % (0.0-10.0); Hematocrit 35.8 % (42.0-52.0); Hemoglobin 11.2 g/dL (14.0-18.0); Mean Corpuscular HGB CONC 31.3 g/dL (32.0-36.0); Mean Corpuscular Volume 86.3 fl (78.0-98.0); Mean Platelet Volume 9.4 fL (7.4-10.4); Platelet Count 351 10x3/uL (130-400); RBC Distribution Width 14.9 % (11.5-14.5); Red Blood Cell (RBC) Count 4.15 mill/uL (4.70-6.10); White Blood Cell (WBC) Count 8.5 10x3/uL (4.8-10.8)
[2023-07-16 12:30] LABS: ALT (SGPT) 7 U/L (8-55); AST (SGOT) 10 U/L (5-34); Albumin 3.8 g/dL (3.4-4.8); Alkaline Phosphatase 90 U/L (40-110); Anion Gap 12 mmol/L (10-20); BUN (Urea Nitrogen) 18 mg/dL (8.4-25.7); Bilirubin, Total 0.3 mg/dL (0.2-1.2); Calc. Creatinine Clearance 0 mL/min (70-130); Calcium 9.3 mg/dL (7.8-10.44); Carbon Dioxide 25 mmol/L (23-31); Chloride 107 mmol/L (98-107); Estimated GFR 46; Globulin 3.9 g/dL (2.4-3.5); Glucose 126 mg/dL (83-110); Potassium 4.3 mmol/L (3.5-5.1); Protein, Total 7.7 g/dL (5.8-8.1); Sodium 140 mmol/L (136-145)
[2023-07-16] MEDS ORDERED: Vancomycin (BATCH) 2 GM in Premix 1 BAG IVPB SCH (13:45)
== END 2023-07-16 17:03 ==
LOC: ERS 10:49
DX: L03.115 Cellulitis of right lower limb (principal); L03.116 Cellulitis of left lower limb; K21.9 Gastro-esophageal reflux disease without esophagitis; I13.0 Hypertensive heart and chronic kidney disease with heart failure and stage 1 through stage 4 chronic kidney disease, or unspecified chronic kidney disease; E11.22 Type 2 diabetes mellitus with diabetic chronic kidney disease; N18.30 Chronic kidney disease, stage 3 unspecified; I50.9 Heart failure, unspecified; E11.51 Type 2 diabetes mellitus with diabetic peripheral angiopathy without gangrene; E66.9 Obesity, unspecified; K92.9 Disease of digestive system, unspecified; J96.21 Acute and chronic respiratory failure with hypoxia; E11.69 Type 2 diabetes mellitus with other specified complication; M86.9 Osteomyelitis, unspecified; F10.20 Alcohol dependence, uncomplicated; M25.552 Pain in left hip; G47.00 Insomnia, unspecified; I89.0 Lymphedema, not elsewhere classified; E56.9 Vitamin deficiency, unspecified; I87.2 Venous insufficiency (chronic) (peripheral)
CPT/HCPCS: 80053; 83605; 85025; 87040; 93005; J3370; 36415; 96365; 96366; 96367; J0692; J3490

== ENCOUNTER 2023-11-06 10:34 | Outpatient (CLI) | payer MEDICARE, MEDICAID ==
[2023-11-06 12:11] LABS: #Basophils 0.06 10x3/uL (0.0-0.2); #Neutrophils 6.96 10x3/uL (1.5-8.4); %Basophils 0.6 % (0.0-2.0); %Eosinophils 1.9 % (0.0-6.0); %Lymphocytes 21.3 % (18.0-47.0); %Monocytes 7.8 % (0.0-10.0); %Neutrophils 67.6 % (40.0-75.0); Hematocrit 30.2 % (38.8-50.0); Hemoglobin 9.6 g/dL (13.5-17.5); Mean Corpuscular HGB CONC 31.8 g/dL (32.0-36.0); Mean Corpuscular Hemoglobin 25.9 pg (27.0-33.0); Mean Corpuscular Volume 81.6 fL (81.2-95.1); Mean Platelet Volume 9.6 fL (7.4-10.4); Platelet Count 489 10x3/uL (150-450); RBC Distribution Width 14.7 % (11.5-14.5); White Blood Cell (WBC) Count 10.3 10x3/uL (3.5-10.5)
[2023-11-06 12:41] LABS: ALT (SGPT) 10 U/L (8-55); AST (SGOT) 11 U/L (5-34); Albumin 2.5 g/dL (3.4-4.8); Alkaline Phosphatase 73 U/L (40-110); Anion Gap 17 mmol/L (10-20); BUN (Urea Nitrogen) 34 mg/dL (8.4-25.7); Bilirubin, Total 0.2 mg/dL (0.2-1.2); Calc. Creatinine Clearance 0 mL/min (70-130); Calcium 8.9 mg/dL (7.8-10.44); Carbon Dioxide 22 mmol/L (23-31); Chloride 101 mmol/L (98-107); Estimated GFR 18; Globulin 4.3 g/dL (2.4-3.5); Glucose 97 mg/dL (83-110); Potassium 4.6 mmol/L (3.5-5.1); Protein, Total 6.8 g/dL (5.8-8.1); Sodium 135 mmol/L (136-145)
== END 2023-11-06 10:35 | disposition home or self-care (01) ==
LOC: LABBT 10:34
PROVIDERS: ATTEND Internal Medicine Cardiovascular Disease
DX: Z01.812 Encounter for preprocedural laboratory examination (principal)
CPT/HCPCS: 80053; 85025

== ENCOUNTER 2025-02-06 10:22 | Emergency (ER) | payer MEDICARE, OTHER ==
[2025-02-06] MEDS ORDERED: Lidocaine 1% PF 5 ML VIAL ONE (13:14)
[2025-02-06] MEDS ORDERED: Acetaminophen 500 MG TAB ONE (15:42)
== END 2025-02-06 17:15 ==
LOC: ERS 10:22
DX: S01.511A Laceration without foreign body of lip, initial encounter (principal); S80.211A Abrasion, right knee, initial encounter; E11.22 Type 2 diabetes mellitus with diabetic chronic kidney disease; I13.0 Hypertensive heart and chronic kidney disease with heart failure and stage 1 through stage 4 chronic kidney disease, or unspecified chronic kidney disease; I50.9 Heart failure, unspecified; N18.30 Chronic kidney disease, stage 3 unspecified; E03.9 Hypothyroidism, unspecified; E66.9 Obesity, unspecified; Z79.82 Long term (current) use of aspirin; Z79.4 Long term (current) use of insulin; Z79.899 Other long term (current) drug therapy; Z79.890 Hormone replacement therapy; Z75.3 Unavailability and inaccessibility of health-care facilities; Z55.6 Problems related to health literacy
CPT/HCPCS: 12011; 70450; 72125